=== PATIENT | female | born 1955 | race Caucasian/White ===

== ENCOUNTER 2018-11-30 20:20 | Inpatient (IN) | payer MEDICARE, OTHER ==
--- NOTE | 2018-11-30 21:07 | ED ---
General Adult HPI - General Chief complaint: Dizziness Stated complaint: dilating pupils,falling Time Seen by Provider: 11/30/18 20:53 Source: patient Mode of arrival: wheelchair Limitations: no limitations - History of Present Illness Initial comments: Patient is a 63-year-old female with a history of hypertension, diabetes, current smoker, who presents with a chief complaint of unequal pupils, and disequilibrium. The patient states that this started this morning. She states that around noon, her stated that her pupils looked unequal. Patient cannot identify an inciting incident. There are no aggravating or alleviating factors. Timing is constant. He has not had any new or worsening troubles with speech, no asymmetry noted. - Related Data Home Medications Medication Instructions Recorded Confirmed Albuterol Inhaler [Ventolin Hfa 1 - 2 puff INHALATION RT-Q6H PRN 11/30/18 11/30/18 Inhaler] Carvedilol [Coreg] 12.5 mg PO BID 11/30/18 11/30/18 DULoxetine HCL [Cymbalta] 120 mg PO DAILY 11/30/18 11/30/18 Furosemide [Lasix] 20 mg PO DAILY 11/30/18 11/30/18 Insulin Detemir [Levemir Flextouch] 18 units SQ HS 11/30/18 11/30/18 Lisinopril [Zestril] 40 mg PO DAILY 11/30/18 11/30/18 Omeprazole [PriLOSEC] 20 mg PO AC-BID 11/30/18 11/30/18 Potassium Chloride ER [K-Dur 10] 10 meq PO BID 11/30/18 11/30/18 Pregabalin [Lyrica] 300 mg PO BID 11/30/18 11/30/18 Ranitidine HCl [Zantac] 150 mg PO HS 11/30/18 11/30/18 amLODIPine [Norvasc] 5 mg PO DAILY 11/30/18 11/30/18 metFORMIN HCL [Glucophage] 1,000 mg PO BID 11/30/18 11/30/18 oxyCODONE-APAP 10-325MG [Percocet 1 tab PO Q6HR PRN 11/30/18 11/30/18 10-325 mg] tiZANidine [Zanaflex] 4 mg PO Q6H PRN 11/30/18 11/30/18 Allergies Allergy/AdvReac Type Severity Reaction Status Date / Time cefaclor [From Ceclor] Allergy Rash/Hives Verified 11/30/18 21:38 ceftriaxone [From Rocephin] Allergy Rash/Hives Verified 11/30/18 21:38 Sulfa (Sulfonamide Allergy Rash/Hives Verified 11/30/18 21:38 Antibiotics) aspirin AdvReac Unknown Verified 11/30/18 21:38 Childhood morphine AdvReac Unknown Verified 11/30/18 21:38 Review of Systems ROS Statement: Those systems with pertinent positive or pertinent negative responses have been documented in the HPI. ROS Other: All systems not noted in ROS Statement are negative. Neurological: Reports: paresthesias Past Medical History Past Medical History: Diabetes Mellitus, Hypertension Additional Past Medical History / Comment(s): chronic back/abd pain History of Any Multi-Drug Resistant Organisms: None Reported Past Surgical History: Cholecystectomy, Tonsillectomy Additional Past Surgical History / Comment(s): R kidney repair, mass removed from left arm. Past Psychological History: PTSD Smoking Status: Current every day smoker Past Alcohol Use History: None Reported Past Drug Use History: None Reported General Exam Limitations: no limitations General appearance: alert, in no apparent distress Head exam: Present: atraumatic, normocephalic Eye exam: Present: normal appearance, PERRL, EOMI. Absent: nystagmus ENT exam: Present: normal exam, mucous membranes moist Neck exam: Present: normal inspection Respiratory exam: Present: normal lung sounds bilaterally. Absent: respiratory distress, wheezes Cardiovascular Exam: Present: regular rate, normal rhythm GI/Abdominal exam: Present: soft. Absent: distended, tenderness Rectal exam: Present: deferred Extremities exam: Present: normal inspection Back exam: Present: normal inspection Neurological exam: Present: alert, oriented X3, CN II-XII intact, motor sensory deficit (Patient states she has decreased sensation on the left side of her face) Psychiatric exam: Present: normal affect, normal mood Skin exam: Present: warm, dry, intact Course Vital Signs 11/30/18 11/30/18 11/30/18 20:38 20:55 21:10 Temperature 98.9 F Pulse Rate 107 H 102 H 108 H Respiratory 20 18 18 Rate Blood Pressure 167/98 174/120 177/107 O2 Sat by Pulse 91 L 93 L 94 L Oximetry 11/30/18 11/30/18 11/30/18 21:25 21:40 21:55 Temperature Pulse Rate 113 H 108 H 100 Respiratory 16 17 16 Rate Blood Pressure 191/110 157/85 140/108 O2 Sat by Pulse 96 96 96 Oximetry 11/30/18 11/30/18 22:25 22:55 Temperature 98.3 F Pulse Rate 95 88 Respiratory 16 16 Rate Blood Pressure 129/105 158/98 O2 Sat by Pulse 96 96 Oximetry Medical Decision Making - Medical Decision Making Patient presents with a chief complaint strokelike symptoms. On initial evaluation, but essential hypertension but otherwise stable. Patient is alert and oriented, follows commands, and a stroke scale of one secondary to par esthesias of the left side of the face. Symptoms onset was this morning, outside of the 6 hour TPA window. Patient not a TPA candidate. Patient is ALLERGIC to aspirin and states that she had about a reaction when she was very little and the doctor told her parents to know regular aspirin again. Patient does not know exactly what type of reaction she had patient will be evaluated with basic labs including cardiac enzymes, CT scans of the head and neck with and without contrast. Ultimately patient will be admitted for neuro evaluation. 11:28 PM Chest x-ray is unremarkable. Incidentally, there is a calcified granuloma found. Patient is aware of this finding, states she has had it for about 30 years. Computed tomography scan of the head shows a small amount of hypodensity in the left frontal periventricular region which may represent an age- indeterminate infarct. There is mild chronic small vessel ischemia. CT angiography of the brain shows no significant stenosis, occlusion, or aneurysm. Angiography of the neck shows no evidence of aneurysm, or hemodynamically significant occlusion. Labs are otherwise unremarkable this time. 11:42 PM Case discussed with Dr. Rodas who accepts admission. patient updated on findings and care plan, she is agreeable. - Lab Data Result diagrams: 11/30/18 21:05 11/30/18 21:05 Lab Results 11/30/18 11/30/18 11/30/18 Range/Units 21:05 21:05 21:05 WBC 11.2 H (3.8-10.6) k/uL RBC 5.50 H (3.80-5.40) m/uL Hgb 11.8 (11.4-16.0) gm/dL Hct 39.5 (34.0-46.0) % MCV 71.8 L (80.0-100.0) fL MCH 21.5 L (25.0-35.0) pg MCHC 29.9 L (31.0-37.0) g/dL RDW 17.5 H (11.5-15.5) % Plt Count 371 (150-450) k/uL Neutrophils % 56 % Lymphocytes % 30 % Monocytes % 6 % Eosinophils % 5 % Basophils % 1 % Neutrophils # 6.2 (1.3-7.7) k/uL Lymphocytes # 3.4 (1.0-4.8) k/uL Monocytes # 0.6 (0-1.0) k/uL Eosinophils # 0.6 (0-0.7) k/uL Basophils # 0.1 (0-0.2) k/uL Hypochromasia Marked Poikilocytosis Slight Anisocytosis Slight Microcytosis Moderate Sodium 139 (137-145) mmol/L Potassium 4.1 (3.5-5.1) mmol/L Chloride 104 (98-107) mmol/L Carbon Dioxide 27 (22-30) mmol/L Anion Gap 8 mmol/L BUN 12 (7-17) mg/dL Creatinine 0.66 (0.52-1.04) mg/dL Est GFR (CKD-EPI)AfAm >90 (>60 ml/min/1.73 sqM) Est GFR (CKD-EPI)NonAf >90 (>60 ml/min/1.73 sqM) Glucose 159 H (74-99) mg/dL POC Glucose (mg/dL) (75-99) mg/dL POC Glu [employer] Manager ID Calcium 10.1 (8.4-10.2) mg/dL Troponin I <0.012 (0.000-0.034) ng/mL 11/30/18 Range/Units 21:18 WBC (3.8-10.6) k/uL RBC (3.80-5.40) m/uL Hgb (11.4-16.0) gm/dL Hct (34.0-46.0) % MCV (80.0-100.0) fL MCH (25.0-35.0) pg MCHC (31.0-37.0) g/dL RDW (11.5-15.5) % Plt Count (150-450) k/uL Neutrophils % % Lymphocytes % % Monocytes % % Eosinophils % % Basophils % % Neutrophils # (1.3-7.7) k/uL Lymphocytes # (1.0-4.8) k/uL Monocytes # (0-1.0) k/uL Eosinophils # (0-0.7) k/uL Basophils # (0-0.2) k/uL Hypochromasia Poikilocytosis Anisocytosis Microcytosis Sodium (137-145) mmol/L Potassium (3.5-5.1) mmol/L Chloride (98-107) mmol/L Carbon Dioxide (22-30) mmol/L Anion Gap mmol/L BUN (7-17) mg/dL Creatinine (0.52-1.04) mg/dL Est GFR (CKD-EPI)AfAm (>60 ml/min/1.73 sqM) Est GFR (CKD-EPI)NonAf (>60 ml/min/1.73 sqM) Glucose (74-99) mg/dL POC Glucose (mg/dL) 170 H (75-99) mg/dL POC Glu [employer] Manager ID Summer Christy Calcium (8.4-10.2) mg/dL Troponin I (0.000-0.034) ng/mL Disposition Clinical Impression: Stroke-like symptoms, Paresthesia, Abnormal CT scan of head Disposition: ADMITTED IP TO THIS [facility] Condition: Good Referrals: None,Stated [Primary Care Provider] - 1-2 days Decision to Admit Reason: Admit from EC - Out of Hospital Transfer - Req. Specs Out of Hospital Transfer - Requested Specifics: Telemetry Unit
[2018-11-30 21:19] LABS: Glucose,Whole Blood 170 mg/dL (75-99)
[2018-11-30 21:22] LABS: Anisocytosis Slight; Basophils # (A) 0.1 k/uL (0-0.2); Basophils % (A) 1 %; Eosinophils # (A) 0.6 k/uL (0-0.7); Eosinophils % (A) 5 %; HCT 39.5 % (34.0-46.0); HGB 11.8 gm/dL (11.4-16.0); Hypochromasia Marked; Lymphocytes # (A) 3.4 k/uL (1.0-4.8); Lymphocytes % (A) 30 %; MCH 21.5 pg (25.0-35.0); MCHC 29.9 g/dL (31.0-37.0); MCV 71.8 fL (80.0-100.0); Mean Platelet Volume 6.4; Microcytosis Moderate; Monocytes # (A) 0.6 k/uL (0-1.0); Monocytes % (A) 6 %; Neutrophils # (A) 6.2 k/uL (1.3-7.7); Neutrophils % (A) 56 %; Platelet Count 371 k/uL (150-450); Poikilocytosis Slight; RDW 17.5 % (11.5-15.5); WBC 11.2 k/uL (3.8-10.6)
[2018-11-30 21:30] LABS: Anion Gap 8 mmol/L; Blood Urea Nitrogen 12 mg/dL (7-17); Calcium 10.1 mg/dL (8.4-10.2); Carbon Dioxide 27 mmol/L (22-30); Chloride 104 mmol/L (98-107); Glucose 159 mg/dL (74-99); Potassium 4.1 mmol/L (3.5-5.1); Sodium 139 mmol/L (137-145)
--- NOTE | 2018-11-30 22:50 | XR ---
EXAM: XR Chest, 2 Views CLINICAL HISTORY: ITS.REASON XR Reason: Pain TECHNIQUE: Frontal and lateral views of the chest. COMPARISON: None FINDINGS: Hardware: None. Lungs/pleura: Calcified granuloma in the left midlung. No focal consolidation. No pleural effusion or pneumothorax. Heart/mediastinum: Normal. No cardiomegaly. Soft tissues: Unremarkable. Bones: No acute fracture. Mild curvature of the spine. Upper abdomen: Cholecystectomy clips in the right upper quadrant. IMPRESSION: Calcified granuloma in the left midlung. No acute disease.
--- NOTE | 2018-11-30 23:08 | CT ---
EXAM: CT Head Without Intravenous Contrast CLINICAL HISTORY: ITS.REASON CT Reason: Pain TECHNIQUE: Axial computed tomography images of the head/brain without intravenous contrast. CTDI is 42.7 mGy and DLP is 979.6 mGy-cm. This CT exam was performed using one or more of the following dose reduction techniques: automated exposure control, adjustment of the mA and/or kV according to patient size, and/or use of iterative reconstruction technique. COMPARISON: None FINDINGS: Brain: Small amount of hypodensity in the left frontal periventricular region may represent an age-indeterminate infarct. No extra-axial fluid collection. No mass effect or midline shift. Scattered areas of hypoattenuation in the supratentorial white matter likely represent chronic small vessel ischemic changes. Ventricles and sulci: Prominence of the ventricles and sulci is likely secondary to cerebral volume loss. Skull: Normal. No bony lesion or fracture. Subcutaneous tissues: Normal. Sinuses: Mild mucosal thickening in the maxillary sinuses and right sphenoid sinus. Orbits: Right lens implant. Other: Atherosclerotic calcifications in the intracranial vasculature. IMPRESSION: 1. Small amount of hypodensity in the left frontal periventricular region may represent age-indeterminate infarct. Further evaluation could be performed with MRI if clinically indicated. No evidence of hemorrhage. 2. Mild chronic small vessel ischemic changes and cerebral volume loss.
[2018-11-30] MEDS ORDERED: oxyCODONE-APAP 10-325MG 1 EACH TAB PO STA (23:09)
--- NOTE | 2018-11-30 23:14 | CT ---
EXAM: CT Angiography Head With Intravenous Contrast CLINICAL HISTORY: ITS.REASON CT Reason: Pain TECHNIQUE: Axial computed tomographic angiography images of the head with intravenous contrast using CT angiography protocol. CTDI is 8.4 mGy and DLP is 375.4 mGy-cm. This CT exam was performed using one or more of the following dose reduction techniques: automated exposure control, adjustment of the mA and/or kV according to patient size, and/or use of iterative reconstruction technique. 3D and MIP reconstructed images were created and reviewed. COMPARISON: None FINDINGS: Right internal carotid artery: Mild atherosclerotic calcifications in the cavernous portion of the right distal ICA without significant stenosis. No aneurysm. Right anterior cerebral artery: Unremarkable. No occlusion or significant stenosis. No aneurysm. Right middle cerebral artery: Unremarkable. No occlusion or significant stenosis. No aneurysm. 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 No occlusion or significant stenosis. No aneurysm. Right vertebral artery: Unremarkable as visualized. Left internal carotid artery: Mild atherosclerotic calcifications in the cavernous left distal ICA without significant stenosis. No aneurysm. Left anterior cerebral artery: Unremarkable. No occlusion or significant stenosis. No aneurysm. Left middle cerebral artery: Unremarkable. No occlusion or significant stenosis. No aneurysm. Left posterior cerebral artery: Unremarkable. No occlusion or significant stenosis. No aneurysm. Left vertebral artery: Unremarkable as visualized. Basilar artery: Unremarkable. No occlusion or significant stenosis. No aneurysm. IMPRESSION: No significant stenosis, occlusion, or aneurysm. EXAM: CT Angiography Neck With Intravenous Contrast CLINICAL HISTORY: ITS.REASON CT Reason: Pain TECHNIQUE: Axial computed tomographic angiography images of the neck with intravenous contrast using CT angiography protocol. CTDI is 8.4 mGy and DLP is 375.4 mGy-cm. This CT exam was performed using one or more of the following dose reduction techniques: automated exposure control, adjustment of the mA and/or kV according to patient size, and/or use of iterative reconstruction technique. 3D and MIP reconstructed images were created and reviewed. COMPARISON: None FINDINGS: VASCULATURE: Right common carotid artery: Unremarkable. No significant stenosis. No dissection or occlusion. Right internal carotid artery: Mild atherosclerotic calcifications in the right carotid bulb and proximal right ICA without significant stenosis. No dissection or occlusion. Right external carotid artery: Unremarkable. No occlusion. Right vertebral artery: Unremarkable. No significant stenosis. No dissection or occlusion. Left common carotid artery: Unremarkable. No significant stenosis. No dissection or occlusion. Left internal carotid artery: Atherosclerotic changes in the left carotid bulb and proximal left ICA without significant stenosis. No dissection or occlusion. Left external carotid artery: Unremarkable. No occlusion. Left vertebral artery: Unremarkable. No significant stenosis. No dissection or occlusion. Other vasculature: Mild atherosclerotic calcifications of the aortic arch and at the origins of the great vessels without significant stenosis. NECK: Bones/joints: No acute fracture. No dislocation. Soft tissues: Unremarkable as visualized. No mass. Lymph nodes: Calcified mediastinal and left hilar lymph nodes. Nonspecific mildly prominent mediastinal lymph nodes. Thyroid: Hypodense nodule in the left thyroid lobe with punctate calcification could be further evaluated with nonemergent dedicated ultrasound if clinically indicated. CAROTID STENOSIS REFERENCE USING NASCET CRITERIA: % ICA stenosis = (1 - narrowest ICA diameter/diameter of distal cervical ICA) x 100. Mild - <50% stenosis. Moderate - 50-69% stenosis. Severe - 70-94% stenosis. Near occlusion - 95-99% stenosis. Occluded - 100% stenosis. IMPRESSION: No significant stenosis, occlusion, or dissection.
[2018-11-30] MEDS ORDERED: NALOXONE 0.4 MG/ML 1 ML VIAL IV PRN (23:43)
[2018-11-30] MEDS ORDERED: tiZANidine 4 MG TAB PO PRN (23:45)
[2018-11-30] MEDS ORDERED: ALBUTEROL NEBULIZED 2.5 MG/3 ML INHALATION PRN (23:45)
[2018-12-01] MEDS ORDERED: LABETALOL SYRINGE 5 MG/ML IVP STA (00:23)
[2018-12-01] MEDS ORDERED: ATORVASTATIN 80 MG TAB PO STA (00:58)
--- NOTE | 2018-12-01 01:00 | P.HPIM ---
History of Present Illness H&P Date: 12/01/18 Patient is a 62-year-old female with a past medical history of hypertension, diabetes mellitus, active smoker (one pack per day for 49 years), presented to the ED for unequal pupils and feeling off balance. The patient reports that her symptoms started suddenly yesterday in the morning when she began to feel as though she was wearing off to the left side. She however denied blurred vision, numbness, or weakness. She further denied vertigo or lightheadedness and notes that her symptoms were limited to her wearing off to the side as she tried to walk. She further denied facial asymmetry, difficulty with speech, headache, dizziness, or eye pain. She noted that her saw her unequal pupils earlier today and advised her to come to the ED. She reports that she has never had such symptoms in the past. She otherwise denied any additional complaints including chest pain, shortness of breath, fever, chills, abdominal pain, nausea, vomiting, or diarrhea. She underwent an extensive evaluation in the ED with a brain CT revealing a small left frontal lobe hypodensity suspicious for a n age indeterminate ischemic infarct. A head and neck CT angiogram revealed no abnormalities. WBC count was 11.2, hemoglobin 11.8, and troponins less than 0.012. The patient was subsequently admitted to the medicine service for neurology evaluation of further management. Review of Systems Pertinent positives and negatives as discussed in HPI, a complete review of syst ems was performed and all other systems are negative. Past Medical History Past Medical History: Diabetes Mellitus, Hypertension Additional Past Medical History / Comment(s): chronic back/abd pain History of Any Multi-Drug Resistant Organisms: None Reported Past Surgical History: Cholecystectomy, Tonsillectomy Additional Past Surgical History / Comment(s): R kidney repair, mass removed from left arm. Past Psychological History: PTSD Smoking Status: Current every day smoker Past Alcohol Use History: None Reported Past Drug Use History: None Reported - Past Family History Father Additional Family Medical History / Comment(s): from CVA Medications and Allergies Home Medications Medication Instructions Recorded Confirmed Type Albuterol Inhaler [Ventolin Hfa 1 - 2 puff INHALATION RT-Q6H PRN 11/30/18 11/30/18 History Inhaler] Carvedilol [Coreg] 12.5 mg PO BID 11/30/18 11/30/18 History DULoxetine HCL [Cymbalta] 120 mg PO DAILY 11/30/18 11/30/18 History Furosemide [Lasix] 20 mg PO DAILY 11/30/18 11/30/18 History Insulin Detemir [Levemir Flextouch] 18 units SQ HS 11/30/18 11/30/18 History Lisinopril [Zestril] 40 mg PO DAILY 11/30/18 11/30/18 History Omeprazole [PriLOSEC] 20 mg PO AC-BID 11/30/18 11/30/18 History Potassium Chloride ER [K-Dur 10] 10 meq PO BID 11/30/18 11/30/18 History Pregabalin [Lyrica] 300 mg PO BID 11/30/18 11/30/18 History Ranitidine HCl [Zantac] 150 mg PO HS 11/30/18 11/30/18 History amLODIPine [Norvasc] 5 mg PO DAILY 11/30/18 11/30/18 History metFORMIN HCL [Glucophage] 1,000 mg PO BID 11/30/18 11/30/18 History oxyCODONE-APAP 10-325MG [Percocet 1 tab PO Q6HR PRN 11/30/18 11/30/18 History 10-325 mg] tiZANidine [Zanaflex] 4 mg PO Q6H PRN 11/30/18 11/30/18 History Allergies Allergy/AdvReac Type Severity Reaction Status Date / Time cefaclor [From Ceclor] Allergy Rash/Hives Verified 11/30/18 21:38 ceftriaxone [From Rocephin] Allergy Rash/Hives Verified 11/30/18 21:38 Sulfa (Sulfonamide Allergy Rash/Hives Verified 11/30/18 21:38 Antibiotics) aspirin AdvReac Unknown Verified 11/30/18 21:38 Childhood morphine AdvReac Unknown Verified 11/30/18 21:38 Physical Exam Vitals: Vital Signs Temp Pulse Resp BP Pulse Ox 12/01/18 00:41 91 16 144/103 91 L 12/01/18 00:32 98.3 F 98 17 151/107 91 L 11/30/18 22:55 88 16 158/98 96 11/30/18 22:25 98.3 F 95 16 129/105 96 11/30/18 21:55 100 16 140/108 96 05/17/19 21:40 108 H 17 157/85 96 11/30/18 21:25 113 H 16 191/110 96 11/30/18 21:10 108 H 18 177/107 94 L 11/30/18 20:55 102 H 18 174/120 93 L 11/30/18 20:38 98.9 F 107 H 20 167/98 91 L Intake and Output 11/30/18 11/30/18 12/01/18 14:59 22:59 06:59 Other: Weight 63.503 kg General: non toxic, no distress, appears at stated age, normal weight Derm: no unusual rashes/lesions no unusual ecchymoses, warm, dry Head: atraumatic, normocephalic, symmetric Eyes: EOMI, no lid lag, anicteric sclera, pupils equal round reactive to light ENT: Nose and ears atraumatic, no thrush, no pharyngeal erythema Neck: No thyromegaly, no cervical lymphadenopathy, trachea midline, supple Mouth: no lip lesion, mucus membranes moist Cardiovascular: S1S2 reg, no murmur, positive posterior tibial pulse bilateral, no edema, capillary refill less than 2 seconds Lungs: Mild wheezing bilaterally, no rhonchi, no rales , no accessory muscle use Abdominal: soft, nontender to palpation, no guarding, no appreciable organomegaly, normal bowel sounds Ext: no gross muscle atrophy, muscle strength 5 out of 5 in all 4 extremities grossly, no contractures, Neuro: CN II-XI grossly intact, light touch intact all 4 extremities, finger to nose within normal limits, no facial asymmetry, gait abnormal with patient leaning towards left side Psych: Alert, oriented, appropriate affect Results CBC & Chem 7: 12/01/18 03:47 12/01/18 03:47 Labs: Abnormal Lab Results - Last 24 Hours (Table) 11/30/18 11/30/18 11/30/18 Range/Units 21:05 21:05 21:18 WBC 11.2 H (3.8-10.6) k/uL RBC 5.50 H (3.80-5.40) m/uL MCV 71.8 L (80.0-100.0) fL MCH 21.5 L (25.0-35.0) pg MCHC 29.9 L (31.0-37.0) g/dL RDW 17.5 H (11.5-15.5) % Glucose 159 H (74-99) mg/dL POC Glucose (mg/dL) 170 H (75-99) mg/dL Assessment and Plan Plan: Acute ischemic CVA -Neurology evaluation -Neurochecks -MRI brain in a.m. -Plavix, statin -Fall, seizure, aspiration precautions Hypertension -Resume home medications Hyperlipidemia -Lipitor Diabetes mellitus -Insulin sliding scale with blood glucose monitoring Tobacco abuse -Advised on importance of cessation -Nicotine patch as needed DVT prophylaxis -IPCDs The patient is admitted with an anticipated greater than 2 midnight stay for evaluation of acute CVA. CODE STATUS: Full Code Discussed with: Patient Anticipated discharge date: 12/03/[address]: Home A total of 40 minutes was spent on the care of this complex patient more than 50% of the time was spent in counseling and care coordination.
[2018-12-01] MEDS ORDERED: CLOPIDOGREL 75 MG TAB PO STA (01:14)
[2018-12-01 04:14] LABS: Anisocytosis Slight; Basophils # (A) 0.1 k/uL (0-0.2); Basophils % (A) 1 %; Eosinophils # (A) 0.5 k/uL (0-0.7); Eosinophils % (A) 5 %; HCT 37.3 % (34.0-46.0); HGB 10.5 gm/dL (11.4-16.0); Hypochromasia Marked; Lymphocytes % (A) 40 %; MCH 20.4 pg (25.0-35.0); MCHC 28.3 g/dL (31.0-37.0); MCV 72.2 fL (80.0-100.0); Mean Platelet Volume 6.1; Microcytosis Moderate; Monocytes # (A) 0.6 k/uL (0-1.0); Monocytes % (A) 6 %; Neutrophils # (A) 4.6 k/uL (1.3-7.7); Neutrophils % (A) 45 %; Platelet Count 343 k/uL (150-450); Poikilocytosis Slight; RBC 5.16 m/uL (3.80-5.40); WBC 10.1 k/uL (3.8-10.6)
[2018-12-01 04:38] LABS: Anion Gap 8 mmol/L; Blood Urea Nitrogen 10 mg/dL (7-17); Calcium 9.5 mg/dL (8.4-10.2); Carbon Dioxide 24 mmol/L (22-30); Chloride 106 mmol/L (98-107); Glucose 98 mg/dL (74-99); Potassium 4.5 mmol/L (3.5-5.1); Sodium 138 mmol/L (137-145)
[2018-12-01 06:17] LABS: Glucose,Whole Blood 111 mg/dL (75-99)
[2018-12-01] MEDS: INSULIN ASPART (NovoLOG) 100 UNIT/ML VIAL SQ SCH ×4 (06:21→21:33)
[2018-12-01] MEDS: CARVEDILOL 12.5 MG TAB PO SCH ×2 (06:23→21:32)
[2018-12-01] MEDS: POTASSIUM CHLORIDE ER 10 MEQ TAB.ER.PRT PO SCH ×2 (06:23→21:33)
[2018-12-01] MEDS: CLOPIDOGREL 75 MG TAB PO SCH (08:59)
[2018-12-01] MEDS: PANTOPRAZOLE 40 MG TABLET PO SCH (08:59)
[2018-12-01] MEDS: amLODIPine 5 MG TAB PO SCH (08:59)
[2018-12-01] MEDS: DULoxetine HCL 60 MG CAPSULE.DR PO SCH (08:59)
[2018-12-01] MEDS: ATORVASTATIN 80 MG TAB PO SCH (09:00)
[2018-12-01] MEDS: LISINOPRIL 20 MG TAB PO SCH (09:00)
[2018-12-01] MEDS: PREGABALIN 100 MG CAP PO SCH ×2 (09:00→21:32)
[2018-12-01] MEDS ORDERED: NON-FORMULARY DRUG (Metformin Hcl [Glucophage] 1,000 MG) PO SCH (09:00)
[2018-12-01] MEDS: FUROSEMIDE 20 MG TAB PO SCH (09:00)
[2018-12-01] MEDS: oxyCODONE-APAP 10-325MG 1 EACH TAB PO PRN ×3 (09:10→22:36)
[2018-12-01] MEDS: NICOTINE 14MG/24HR PATCH TRANSDERM SCH (11:04)
[2018-12-01] MEDS ORDERED: IPRATROPIUM-ALBUTEROL 3 ML NEB INHALATION PRN (11:26)
[2018-12-01] MEDS ORDERED: IPRATROPIUM-ALBUTEROL 3 ML NEB INHALATION STA (11:27)
--- NOTE | 2018-12-01 11:28 | P.PN ---
Progress Note - Text Progress Note Date: 12/01/18 Please refer to the H&P for full note. 63-year-old female with PMH of hypertension, diabetes, current smoker who presents the ED for unequal pupils and feeling off balance. CT brain showed hypodensity in the left frontal region may represent age indeterminate infarct. CTA of the head and neck show no significant stenosis, occlusion or dissection. Patient was admitted for workup of acute CVA. Neurology was consulted. Patient was seen and examined. No acute events overnight. Patient reports complete resolution of her symptoms. She denies any feelings of off balance. No blurry vision. Denies any chest pain, shortness of breath or palpitations. General: [non toxic], [no distress], [appears at stated age] Derm: [warm], [dry] Head: [atraumatic], [normocephalic], [symmetric] Eyes: [EOMI], [no lid lag], [anicteric sclera] Mouth: [no lip lesion], [mucus membranes moist] Cardiovascular: [S1S2 reg], [no murmur] Lungs: [CTA bilateral with scattered wheezing], [no rhonchi, no rales] , [no accessory muscle use] Abdominal: [soft], [ nontender to palpation], [no guarding], [no appreciable organomegaly] Ext: [no gross muscle atrophy], [no edema], [no contractures] Neuro: [ CN II-XI grossly intact], [no focal neuro deficits] Psych: [Alert], [oriented], [appropriate affect] Acute CVA COPD Hypertension Hyperlipidemia Diabetes mellitus Tobacco smoker DVT prophylaxis As seen on CT head. CTA head and neck negative. Plan: Continue Plavix and Lipitor. Follow MRI brain. Follow echocardiogram. Follow lipid panel and A1c. Neurochecks. Telemetry monitoring. Bedside swallow eval.Follow neurology recommendations. Follow PT and OT recommendations. Takes Symbicort and albuterol at home. Plan: DuoNeb now. DuoNeb 4 times a day as needed for shortness of breath and wheezing. BP 128/78. Plan: Continue amlodipine, lisinopril and Coreg. Monitor vitals, adjust medications as necessary. Plan: Continue Lipitor. Follow lipid panel. [id number] glucose 111. Plan: Follow A1c. Continue Levemir 14 units at bedtime. Insulin sliding-scale. Hypoglycemic percussion. Regular Accu-Cheks. Plan: Quit. Nicotine patch while inhouse. Plan: Heparin subcutaneously. Patient admitted for workup of CVA. Neurology was consulted. Pending clinical improvement.
[2018-12-01 11:54] LABS: Glucose,Whole Blood 108 mg/dL (75-99)
--- NOTE | 2018-12-01 12:44 | MR ---
EXAMINATION TYPE: MR brain wo con DATE OF EXAM: 12/01/2018 12:37 PM. COMPARISON: NONE. HISTORY: Stroke symptoms. Technique: Multiplanar, multiecho imaging of the brain was obtained without intravenous contrast. FINDINGS: The study is degraded by patient motion artifact. Midline structures are unremarkable. There is a normal craniocervical junction. Echoplanar diffusion imaging is normal. There are normal vascular flow voids. The orbits are unremarkable. There is no evidence of a CP angle mass lesion. There is both punctate and diffuse periventricular white matter disease. This may be on the masses ar e chronic ischemic change and small vessel disease. Other causes of demyelination are not excluded. T here is no mass effect, midline shift or intracranial blood identified. IMPRESSION: 1. NO ACUTE INTRACRANIAL ABNORMALITY. 2. BOTH PUNCTATE AND DIFFUSE PERIVENTRICULAR WHITE MATTER CHANGES ON THE FLAIR DATASET, LIKELY ON THE BASIS OF SMALL VESSEL DISEASE AND CHRONIC ISCHEMIC CHANGE. OTHER CAUSES OF DEMYELINATION ARE NOT EXC LUDED.
--- NOTE | 2018-12-01 12:58 | P.CNNES ---
History of Present Illness Consult date: 12/01/18 Requesting physician: Greta Rodas Reason for Consult: CVA Chief complaint: Dizziness, unequal pupil, imbalance. History of Present Illness: Patient is a 63-year-old female, who has history of hypertension, diabetes, tobacco use, currently not on any antiplatelet medication, states she woke up ye sterday at 7:30 AM, and felt she was off balance. She was tending to veer on the left side, and would tend to fall to the left. She stayed home. She does have a cane which she uses off and on and used it yesterday. At around noon, her noticed that her left pupil was much dilated as compared to the right. Therefore they got concerned, and was brought to the hospital. Her blood pressure on arrival was 167/98, pulse rate 107, respiration 20 and temperature 98.9. Patient also complained of some dizziness, which she described as lightheadedness, no vertigo. There was no nausea vomiting facial droop slurred speech. Her also mentioned that in the past 2-3 days, she has been having some difficulty with speech, with word finding difficulty, as she would not able to complete her sentences and her has to help her with completing sentences. Patient underwent computed tomography scan of the head, which revealed no acute process. Some old lacuna in the left basal g anglia. Patient was not a candidate for thrombolysis, as she came outside the window for TPA. Patient underwent CTA of head and neck which was negative. Chest x-ray showed calcified granuloma in the left mid lung. Patient does not take any antiplatelet medication at home. She was started on Plavix 75 mg. 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 She was told never to take aspirin. At present patient feels her symptoms have completely resolved. Denies any chest pain, shortness of breath headaches. Patient has history of hypertension, diabetes since 2003, which she claims is controlled. She has smoked 1 pack per day from age 15 until now. Multiple attempts in the past of trial to quit smoking Review of Systems As mentioned above in detail. Denies any chest pain shortness of breath, diplopia, nausea vomiting, numbness of the extremities focal weakness. Cardiovascular: Denies rapid heart beat, Denies shortness of breath Respiratory: Denies cough Gastrointestinal: Denies loss of appetite, Denies nausea, Denies vomiting Past Medical History Past Medical History: Diabetes Mellitus, Hypertension Additional Past Medical History / Comment(s): chronic back/abd pain History of Any Multi-Drug Resistant Organisms: None Reported Past Surgical History: Cholecystectomy, Tonsillectomy Additional Past Surgical History / Comment(s): R kidney repair, mass removed from left arm. Past Anesthesia/Blood Transfusion Reactions: Unable to Obtain Past Psychological History: PTSD Smoking Status: Current every day smoker Past Alcohol Use History: None Reported Past Drug Use History: None Reported - Past Family History Father Additional Family Medical History / Comment(s): from CVA Medications and Allergies Home Medications Medication Instructions Recorded Confirmed Type Albuterol Inhaler [Ventolin Hfa 1 - 2 puff INHALATION RT-Q6H PRN 11/30/18 11/30/18 History Inhaler] Carvedilol [Coreg] 12.5 mg PO BID 11/30/18 11/30/18 History DULoxetine HCL [Cymbalta] 120 mg PO DAILY 11/30/18 11/30/18 History Furosemide [Lasix] 20 mg PO DAILY 11/30/18 11/30/18 History Insulin Detemir [Levemir Flextouch] 18 units SQ HS 11/30/18 11/30/18 History Lisinopril [Zestril] 40 mg PO DAILY 11/30/18 11/30/18 History Omeprazole [PriLOSEC] 20 mg PO AC-BID 11/30/18 11/30/18 History Potassium Chloride ER [K-Dur 10] 10 meq PO BID 11/30/18 11/30/18 History Pregabalin [Lyrica] 300 mg PO BID 11/30/18 11/30/18 History Ranitidine HCl [Zantac] 150 mg PO HS 11/30/18 11/30/18 History amLODIPine [Norvasc] 5 mg PO DAILY 11/30/18 11/30/18 History metFORMIN HCL [Glucophage] 1,000 mg PO BID 11/30/18 11/30/18 History oxyCODONE-APAP 10-325MG [Percocet 1 tab PO Q6HR PRN 11/30/18 11/30/18 History 10-325 mg] tiZANidine [Zanaflex] 4 mg PO Q6H PRN 11/30/18 11/30/18 History Allergies Allergy/AdvReac Type Severity Reaction Status Date / Time cefaclor [From Ceclor] Allergy Rash/Hives Verified 11/30/18 21:38 ceftriaxone [From Rocephin] Allergy Rash/Hives Verified 11/30/18 21:38 Sulfa (Sulfonamide Allergy Rash/Hives Verified 11/30/18 21:38 Antibiotics) aspirin AdvReac Unknown Verified 11/30/18 21:38 Childhood morphine AdvReac Unknown Verified 11/30/18 21:38 Physical Examination - Vital Signs Vital Signs: Vital Signs Temp Pulse Pulse Resp BP BP Pulse Ox 12/01/18 12:05 88 12/01/18 11:56 86 12/01/18 08:00 98.4 F 90 18 128/78 96 12/01/18 04:00 98.4 F 75 18 130/88 97 12/01/18 01:21 80 16 134/81 96 12/01/18 00:50 80 16 124/91 95 12/01/18 00:41 91 16 144/103 91 L 12/01/18 00:32 98.3 F 98 17 151/107 91 L 12/01/18 00:18 98.2 F 86 18 139/82 91 L 11/30/18 22:55 88 16 158/98 96 11/30/18 22:25 98.3 F 95 16 129/105 96 11/30/18 21:55 100 16 140/108 96 11/30/18 21:40 108 H 17 157/85 96 11/30/18 21:25 113 H 16 191/110 96 11/30/18 21:10 108 H 18 177/107 94 L 11/30/18 20:55 102 H 18 174/120 93 L 11/30/18 20:38 98.9 F 107 H 20 167/98 91 L Intake and Output 11/30/18 12/01/18 12/01/18 22:59 06:59 14:59 Intake Total 480 Balance 480 Intake: Oral 480 Other: # Voids 2 Weight 63.503 kg 65.4 kg On examination patient is a late middle aged female, very pleasant in no acute distress. Patient is alert and awake, fully oriented to time place and person. Speech and language functions are normal. No carotid bruit or murmur. Peripheral pulses present. On cranial nerve examination, pupils are round and reacting to light. No asymmetry in the size of pupils. Visual hopson are full. Extraocular muscles are intact with no nystagmus. Face is symmetric, tongue protrudes to the midline. Palatal elevation and sensation normal. On muscle strength testing, there is no pronator drift and the strength is normal in the arms and legs. Reflexes are 1+ and plantars downgoing. Sensory touch is equal to no ataxia. Tone and bulk of muscles normal. Gait normal. Results - Laboratory Findings CBC and BMP: 12/01/18 03:47 12/01/18 03:47 Abnormal Lab Findings: Abnormal Labs 11/30/18 11/30/18 11/30/18 21:05 21:05 21:18 WBC 11.2 H RBC 5.50 H Hgb MCV 71.8 L MCH 21.5 L MCHC 29.9 L RDW 17.5 H Glucose 159 H POC Glucose (mg/dL) 170 H 12/01/18 12/01/18 12/01/18 03:47 06:16 11:45 WBC RBC Hgb 10.5 L MCV 72.2 L MCH 20.4 L MCHC 28.3 L RDW 18.0 H Glucose POC Glucose (mg/dL) 111 H 108 H Assessment and Plan Assessment: * Probable TIA, manifesting with an episode of imbalance, dizziness, anisocoria and speech difficulty. Symptoms have completely resolved. Examination is nonfocal. * Hypertension * Hyperlipidemia * Tobacco user Plan: * MRI showed no acute ischemic stroke. Patient's symptoms have completely resolved. Examination is nonfocal. * Agree with continuing Plavix 75 mg daily indefinitely for stroke prevention. * Await 2-D echo with bubble study. * Agree with checking fasting a.m. lipid panel and hemoglobin A1c * Discussed about importance of tobacco cessation. * Discussed with patient and her in detail.
--- NOTE | 2018-12-01 16:43 | ECHOF ---
Referral Reason:CVA MEASUREMENTS -------- HEIGHT: 157.5 cm WEIGHT: 65.3 kg BP: 103/50 RVIDd: 2.5 cm (< 3.3) IVSd: 1.3 cm (0.6 - 1.1) LVIDd: 4.7 cm (3.9 - 5.3) LVPWd: 1.2 cm (0.6 - 1.1) IVSs: 1.5 cm LVIDs: 3.3 cm LVPWs: 1.9 cm LA Diam: 3.3 cm (2.7 - 3.8) LAESV Index (A-L): 17.62 ml/m Ao Diam: 2.7 cm (2.0 - 3.7) AV Cusp: 2.0 cm (1.5 - 2.6) MV EXCURSION: 15.618 mm (> 18.000) MV EF SLOPE: 89 mm/s (70 - 150) EPSS: 0.9 cm MV E Kian: 0.81 m/s MV DecT: 187 ms MV A Kian: 0.67 m/s MV E/A Ratio: 1.22 RAP: 5.00 mmHg RVSP: 14.84 mmHg FINDINGS -------- Sinus rhythm. This was a technically adequate study. The left ventricular size is normal. There is mild concentric left ventricular hypertrophy. Overa ll left ventricular systolic function is normal with, an EF between 55 - 60 %. The right ventricle is normal in size. Normal LA size by volume 22+/-6 ml/m2. The right atrium is normal in size. Contrast study was performed with 2 iv injections of 8 ccs of agitated normal saline, at rest, and wi th cough. Lipomatous Hypertrophy of the atrial septum is present No shunt noted The aortic valve is trileaflet, and appears structurally normal. No aortic stenosis or regurgitation. The mitral valve is normal. There is trace to mild mitral regurgitation. The tricuspid valve appears structurally normal. Mild tricuspid regurgitation present. Right vent ricular systolic pressure is normal at < 35 mmHg. Trace/mild (physiologic) pulmonic regurgitation. The aortic root size is normal. Normal inferior vena cava with normal inspiratory collapse consistent with estimated right atrial pre ssure of 5 mmHg. There is no pericardial effusion. CONCLUSIONS -------- 1. Sinus rhythm. 2. This was a technically adequate study. 3. The left ventricular size is normal. 4. There is mild concentric left ventricular hypertrophy. 5. Overall left ventricular systolic function is normal with, an EF between 55 - 60 %. 6. Normal LA size by volume 22+/-6 ml/m2. 7. Contrast study was performed with 2 iv injections of 8 ccs of agitated normal saline, at rest, and with cough. 8. Lipomatous Hypertrophy of the atrial septum is present 9. No shunt noted 10. The aortic valve is trileaflet, and appears structurally normal. No aortic stenosis or regurgitat ion. 11. The mitral valve is normal. 12. There is trace to mild mitral regurgitation. 13. The tricuspid valve appears structurally normal. 14. Mild tricuspid regurgitation present. 15. Right ventricular systolic pressure is normal at < 35 mmHg. 16. Trace/mild (physiologic) pulmonic regurgitation. 17. The aortic root size is normal. 18. Normal inferior vena cava with normal inspiratory collapse consistent with estimated right atrial pressure of 5 mmHg. 19. There is no pericardial effusion. DICE TABLE PERSON: Jasmina Burt RDCS
[2018-12-01 17:03] LABS: Glucose,Whole Blood 131 mg/dL (75-99)
[2018-12-01] MEDS ORDERED: INSULIN DETEMIR (LEVEMIR) 100 UNIT/ML SYR SQ SCH (21:00)
[2018-12-01] MEDS ORDERED: FAMOTIDINE 20 MG TAB PO SCH (21:00)
[2018-12-01 21:22] LABS: Glucose,Whole Blood 111 mg/dL (75-99)
[2018-12-01] MEDS: HEPARIN SODIUM,PORCINE 5,000 UNIT/ML 1 ML VIAL SQ SCH (21:33)
[2018-12-02 01:11] LABS: Cholesterol 103 mg/dL (<200); HDL Cholesterol 37 mg/dL (40-60); LDL Cholesterol,Calculated 43 mg/dL (0-99); Triglycerides 115 mg/dL (<150)
[2018-12-02 06:14] LABS: Glucose,Whole Blood 90 mg/dL (75-99)
[2018-12-02] MEDS: INSULIN ASPART (NovoLOG) 100 UNIT/ML VIAL SQ SCH ×2 (06:16→14:05)
[2018-12-02] MEDS: POTASSIUM CHLORIDE ER 10 MEQ TAB.ER.PRT PO SCH (06:22)
[2018-12-02] MEDS: CARVEDILOL 12.5 MG TAB PO SCH (06:22)
[2018-12-02] MEDS: DULoxetine HCL 60 MG CAPSULE.DR PO SCH (08:06)
[2018-12-02] MEDS: ATORVASTATIN 80 MG TAB PO SCH (08:06)
[2018-12-02] MEDS: PANTOPRAZOLE 40 MG TABLET PO SCH (08:06)
[2018-12-02] MEDS: FUROSEMIDE 20 MG TAB PO SCH (08:06)
[2018-12-02] MEDS: LISINOPRIL 20 MG TAB PO SCH (08:06)
[2018-12-02] MEDS: PREGABALIN 100 MG CAP PO SCH (08:06)
[2018-12-02] MEDS: oxyCODONE-APAP 10-325MG 1 EACH TAB PO PRN ×2 (08:07→14:07)
[2018-12-02] MEDS: NICOTINE 14MG/24HR PATCH TRANSDERM SCH (08:08)
[2018-12-02] MEDS: CLOPIDOGREL 75 MG TAB PO SCH (08:08)
[2018-12-02] MEDS: amLODIPine 5 MG TAB PO SCH (08:08)
[2018-12-02] MEDS: HEPARIN SODIUM,PORCINE 5,000 UNIT/ML 1 ML VIAL SQ SCH (08:08)
[2018-12-02 08:24] VITALS: BP 155/87; PULSE 90; RESP 16; TEMP 98.6
--- NOTE | 2018-12-02 11:42 | P.DS ---
Providers Date of admission: 11/30/18 23:45 Expected date of discharge: 12/02/18 Attending physician: Greta Rodas MD Consults: 12/01/18 00:59 Consult Physician Urgent Consulting Provider: Kartik Hopper Consult Reason/Comments: Acute ischemic CVA Do you want consulting provider notified?: Yes Primary care physician: Stated None Hospital Course: Patient is a 62-year-old female with a past medical history of hypertension, diabetes mellitus, active smoker (one pack per day for 49 years), presented to the ED for unequal pupils and feeling off balance. The patient reports that her symptoms started suddenly yesterday in the morning when she began to feel as though she was wearing off to the left side. Her symptoms was concerning for acute CVA. CT of the brain showed hypodensity in the left frontal periventricular region representing age indeterminate infarct. CTA of the head and neck was negative for stenosis. Echocardiogram was done which showed EF 55-60% with mild concentric LVH with no intracardiac thrombus. MRI brain shows no acute intracranial abnormality. Physical therapy and occupational therapy evaluated the patient and cleared for discharge. Neurology was consulted and recommended Plavix and outpatient follow-up. Otherwise, her home medications were resumed for COPD, hypertension, hyperlipidemia, diabetes mellitus and patient was given a nicotine patch for her smoking history. Patient was seen and examined. No acute events overnight. Patient reports resolution of her imbalance. She denies any blurry vision or difficulty speaking or swallowing. She denies any chest pain, shortness of breath or palpitations. Patient denies any numbness/weakness/tingling of the extremities. States that she was on 2 L home O2 while in [place], lost her oxygen while transitioning to [place]. General: [non toxic], [no distress], [appears at stated age] Derm: [warm], [dry] Head: [atraumatic], [normocephalic], [symmetric] Eyes: [EOMI], [no lid lag], [anicteric sclera] Mouth: [no lip lesion], [mucus membranes moist] Cardiovascular: [S1S2 reg], [no murmur] Lungs: [Decreased breath sounds bilateral with scattered wheezing], [no rhonchi, no rales] , [no accessory muscle use] Abdominal: [soft], [ nontender to palpation], [no guarding], [no appreciable organomegaly] Ext: [no gross muscle atrophy], [no edema], [no contractures] Neuro: [ CN II-XI grossly intact], [no focal neuro deficits] Psych: [Alert], [oriented], [appropriate affect] Acute CVA COPD Hypertension Hyperlipidemia Diabetes mellitus Tobacco smoker DVT prophylaxis As seen on CT head. CTA head and neck negative. MRI brain negative for acute CVA. Echocardiogram shows EF 55-60% with mild concentric LVH and no intracardiac thrombus. Lipid panel is within normal limits. Plan: Continue Plavix and Lipitor. Follow A1c. Neurochecks. Telemetry monitoring. PT and OT cleared. Neurology consulted, recommends continuation of Plavix. Takes Symbicort and albuterol at home. Plan: DuoNeb now. DuoNeb 4 times a day as needed for shortness of breath and wheezing. Prescription sent for home O2. BP 155/87. Plan: Continue amlodipine, lisinopril and Coreg. Monitor vitals, adjust medications as necessary. Plan: Continue Lipitor. Follow lipid panel. [id number] glucose 90. Plan: Follow A1c. Continue Levemir 14 units at bedtime. Insulin sliding-scale. Hypoglycemic percussion. Regular Accu-Cheks. Plan: Quit. Nicotine patch while inhouse. Plan: Heparin subcutaneously. Patient admitted for workup of CVA. Stroke workup complete. Plans for DC today if able to get home O2. This complex discharge took greater than 30 minutes. Pertinent Studies: Brain CT, CTA head and neck, chest x-ray, brain MRI, echocardiogram Patient Condition at Discharge: Good Plan - Discharge Summary Discharge Rx Participant: Yes New Discharge Prescriptions: New Atorvastatin [Lipitor] 80 mg PO DAILY #30 tab Clopidogrel [Plavix] 75 mg PO DAILY #30 tab Continue Pregabalin [Lyrica] 300 mg PO BID oxyCODONE-APAP 10-325MG [Percocet 10-325 mg] 1 tab PO Q6HR PRN PRN Reason: Pain Omeprazole [PriLOSEC] 20 mg PO AC-BID Furosemide [Lasix] 20 mg PO DAILY DULoxetine HCL [Cymbalta] 120 mg PO DAILY amLODIPine [Norvasc] 5 mg PO DAILY Carvedilol [Coreg] 12.5 mg PO BID Lisinopril [Zestril] 40 mg PO DAILY Albuterol Inhaler [Ventolin Hfa Inhaler] 1 - 2 puff INHALATION RT-Q6H PRN PRN Reason: Shortness Of Breath tiZANidine [Zanaflex] 4 mg PO Q6H PRN PRN Reason: Muscle Pain Potassium Chloride ER [K-Dur 10] 10 meq PO BID Insulin Detemir [Levemir Flextouch] 18 units SQ HS metFORMIN HCL [Glucophage] 1,000 mg PO BID Discontinued Ranitidine HCl [Zantac] 150 mg PO HS Discharge Medication List Albuterol Inhaler [Ventolin Hfa Inhaler] 1 - 2 puff INHALATION RT-Q6H PRN 11/30/18 [History] Carvedilol [Coreg] 12.5 mg PO BID 11/30/18 [History] DULoxetine HCL [Cymbalta] 120 mg PO DAILY 11/30/18 [History] Furosemide [Lasix] 20 mg PO DAILY 11/30/18 [History] Insulin Detemir [Levemir Flextouch] 18 units SQ HS 11/30/18 [History] Lisinopril [Zestril] 40 mg PO DAILY 11/30/18 [History] Omeprazole [PriLOSEC] 20 mg PO AC-BID 11/30/18 [History] Potassium Chloride ER [K-Dur 10] 10 meq PO BID 11/30/18 [History] Pregabalin [Lyrica] 300 mg PO BID 11/30/18 [History] amLODIPine [Norvasc] 5 mg PO DAILY 11/30/18 [History] metFORMIN HCL [Glucophage] 1,000 mg PO BID 11/30/18 [History] oxyCODONE-APAP 10-325MG [Percocet 10-325 mg] 1 tab PO Q6HR PRN 11/30/18 [History] tiZANidine [Zanaflex] 4 mg PO Q6H PRN 11/30/18 [History] Atorvastatin [Lipitor] 80 mg PO DAILY #30 tab 12/02/18 [Rx] Clopidogrel [Plavix] 75 mg PO DAILY #30 tab 12/02/18 [Rx] Follow up Appointment(s)/Referral(s): [facility] [NON-STAFF] - As Needed None,Stated [Primary Care Provider] - 1-2 days Bladimir Allen MD [STAFF PHYSICIAN] - 1 Week Activity/Diet/Wound Care/Special Instructions: Call [facility] to pharmacy picking tech home oxygen equipment now that you are set up with a new supplies. [facility] can be contacted at . Follow-up PCP within 1-2 days of discharge. Follow-up with neurology within 1 week of discharge. Take all medications as advised. Discharge Disposition: HOME SELF-CARE
[2018-12-02 11:58] LABS: Glucose,Whole Blood 99 mg/dL (75-99)
[2018-12-03 14:14] LABS: Hemoglobin A1C 6.7 % (4.0-6.0)
== END 2018-12-02 15:52 | disposition home or self-care (01) | DRG 66 ==
LOC: EC 20:20 → 3SCARD 23:45
PROVIDERS: ADMIT Internal Medicine; ATTEND Internal Medicine
DX: I63.9 Cerebral infarction, unspecified (principal); J84.10 Pulmonary fibrosis, unspecified; H57.02 Anisocoria; R26.0 Ataxic gait; R40.2362 Coma scale, best motor response, obeys commands, at arrival to emergency department; R40.2142 Coma scale, eyes open, spontaneous, at arrival to emergency department; R40.2252 Coma scale, best verbal response, oriented, at arrival to emergency department; R29.701 NIHSS score 1; I10 Essential (primary) hypertension; E11.9 Type 2 diabetes mellitus without complications; J44.9 Chronic obstructive pulmonary disease, unspecified; E78.5 Hyperlipidemia, unspecified; G89.29 Other chronic pain; M54.9 Dorsalgia, unspecified; R10.9 Unspecified abdominal pain; F43.10 Post-traumatic stress disorder, unspecified; F17.210 Nicotine dependence, cigarettes, uncomplicated; Z71.6 Tobacco abuse counseling; Z99.81 Dependence on supplemental oxygen; Z79.4 Long term (current) use of insulin; Z79.899 Other long term (current) drug therapy; Z90.49 Acquired absence of other specified parts of digestive tract; Z98.890 Other specified postprocedural states; Z88.1 Allergy status to other antibiotic agents; Z88.5 Allergy status to narcotic agent; Z88.2 Allergy status to sulfonamides; Z88.6 Allergy status to analgesic agent; Z82.3 Family history of stroke
CPT/HCPCS: 36415; 70450; 70496; 70498; 70551; 71046; 80048; 80061; 83036; 84484; 85025; 93005; 93306; 94640; 96374; 99285

== ENCOUNTER → 2018-12-24 | Outpatient (CLI) | payer MEDICARE, OTHER ==
--- NOTE | 2018-12-24 11:48 | MR ---
EXAMINATION TYPE: MR angio head wo con DATE OF EXAM: 12/24/2018 COMPARISON: NONE HISTORY: Transient cerebral ischemic attack TECHNIQUE: Time of flight images focusing on the [place] were performed without contrast. FINDINGS: The right vertebral artery is slightly dominant. Basilar artery is patent. There is congenital normal variation origin of the right posterior cerebral artery from the internal carotid artery. Post erior circulation is otherwise unremarkable. A posterior communicating artery on the left is not seen . Therefore the [place] remains incomplete. No evidence of arterial venous malformation or f ocal stenosis. No aneurysm or dissection is seen of the major intracranial vasculature of the head. N o hemodynamically significant stenosis. IMPRESSION: 1. 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 2. No intracranial aneurysm, hemodynamically significant stenosis, occlusion, or dissection of the ma pratima intracranial vasculature.
== END ==
LOC: RADMRIMAIN 10:35
PROVIDERS: ATTEND Psychiatry & Neurology Neurology
DX: G45.9 Transient cerebral ischemic attack, unspecified (principal)
CPT/HCPCS: 70544

== ENCOUNTER → 2019-01-31 | Outpatient (CLI) | payer MEDICARE, OTHER ==
--- NOTE | 2019-02-05 13:20 | MM ---
Reason for exam: screening (asymptomatic). Last mammogram was performed 1 year and 2 months ago. History: Patient is postmenopausal and has history of other cancer at age 22. Family history of breast cancer in mother at age 60. Physical Findings: A clinical breast exam by your physician is recommended on an annual basis and results should be correlated with mammographic findings. MG Screening Mammo w CAD Bilateral CC and MLO view(s) were taken. Prior study comparison: December 05, 2017, mammogram, performed at [place]. April 05, 2016, mammogram, performed at [facility]. The breast tissue is heterogeneously dense. This may lower the sensitivity of mammography. There is a stable left upper outer quadrant mass at middle depth. Benign appearing calcifications in the left breast. No suspicious abnormality. No significant changes when compared with prior studies. ASSESSMENT: Benign, BI-RAD 2 RECOMMENDATION: Routine screening mammogram of both breasts in 1 year.
== END | disposition home or self-care (01) ==
LOC: RADMAMWWP 12:34
PROVIDERS: ATTEND Family Medicine
DX: Z12.31 Encounter for screening mammogram for malignant neoplasm of breast (principal)
CPT/HCPCS: 77067

== ENCOUNTER → 2019-02-01 | Outpatient (CLI) | payer MEDICARE, OTHER ==
[2019-02-01 18:08] LABS: Rheumatoid Factor <4 IU/mL (0-13)
[2019-02-01 19:09] LABS: HIV 1 AB Non-Reactive (Non-Reactive); HIV AB P24 Non-Reactive (Non-Reactive); HIV P24 AG Non-Reactive (Non-Reactive)
[2019-02-01 19:36] LABS: Hepatitis A Antibody IgM Non-Reactive (Non-Reactive); Hepatitis B Core IgM Non-Reactive (Non-Reactive)
[2019-02-02 12:29] LABS: Angiotensin-1 Converting Enz. 3 U/L (8-52)
[2019-02-02 13:16] LABS: HLA B27 NEGATIVE
[2019-02-04 09:13] LABS: Toxoplasma Antibody (IgG) <3.0 IU/mL (<7.2)
[2019-02-04 14:40] LABS: C-ANCA <1:20 Titer (<1:20); P-ANCA <1:20 Titer (<1:20)
[2019-02-05 12:20] LABS: Lyme IgG/IgM 0.06 Index
== END | disposition home or self-care (01) ==
LOC: LABWHC1 12:07
PROVIDERS: ATTEND Ophthalmology
DX: H47.012 Ischemic optic neuropathy, left eye (principal)
CPT/HCPCS: 36415; 80074; 82164; 85549; 86038; 86140; 86255; 86431; 86618; 86777; 86780; 86812; 87390

== ENCOUNTER 2019-03-16 09:49 | Emergency (ER) | payer MEDICARE, OTHER ==
[2019-03-16 09:58] VITALS: RESP 18; TEMP 98
--- NOTE | 2019-03-16 10:16 | ED ---
General Adult HPI - General Chief complaint: Neuro Symptoms/Deficit Stated complaint: Vision loss Time Seen by Provider: 03/16/19 10:04 Source: patient, RN notes reviewed Mode of arrival: ambulatory Limitations: no limitations - History of Present Illness Initial comments: Patient is a pleasant 64-year-old female presenting to the emergency department with sudden painless vision loss. Onset of symptoms was 8:30 AM. Patient suddenly noticed she could not see out of her left eye. Patient woke up earlier than this and was doing fine. Patient still denies any pain. No headache. No trauma. During examination patient states she can see an outline of me as well as shadows in her left eye, right eye vision is normal. Patient did start having some eye problems around 3 months ago. Patient was originally diagnosed with TIA, then a stroke in her eye, and then optic neuritis. This was all a progressive diagnosis. Patient states at that time she was seen because her pupils were irregular. Patient did have some minimal vision loss at that time. No other areas of weakness or confusion. No chest pain or dyspnea. No speech problems. - Related Data Home Medications Medication Instructions Recorded Confirmed Carvedilol [Coreg] 12.5 mg PO BID 11/30/18 03/16/19 DULoxetine HCL [Cymbalta] 120 mg PO DAILY 11/30/18 03/16/19 Furosemide [Lasix] 20 mg PO DAILY 11/30/18 03/16/19 Insulin Detemir [Levemir Flextouch] 18 units SQ HS 11/30/18 03/16/19 Lisinopril [Zestril] 40 mg PO DAILY 11/30/18 03/16/19 Pregabalin [Lyrica] 300 mg PO BID 11/30/18 03/16/19 amLODIPine [Norvasc] 5 mg PO DAILY 11/30/18 03/16/19 metFORMIN HCL [Glucophage] 1,000 mg PO BID 11/30/18 03/16/19 oxyCODONE-APAP 10-325MG [Percocet 1 tab PO QID 11/30/18 03/16/19 10-325 mg] tiZANidine [Zanaflex] 4 mg PO Q6H PRN 11/30/18 03/16/19 Albuterol Sulfate [Proair Hfa] 1 - 2 puff INHALATION Q6HR PRN 03/16/19 03/16/19 INSULIN ASPART (NovoLOG) [NovoLOG See Protocol SQ ACHS 03/16/19 03/16/19 (formulary)] Ranitidine HCl [Zantac] 150 mg PO HS 03/16/19 03/16/19 Previous Rx's Medication Instructions Recorded Atorvastatin [Lipitor] 80 mg PO DAILY #30 tab 12/02/18 Clopidogrel [Plavix] 75 mg PO DAILY #30 tab 12/02/18 Brinzolamide/Brimonidine Tart 1 drop LEFT EYE BID #8 ml 03/16/19 [Simbrinza 1%-0.2% Eye Drops] Allergies Allergy/AdvReac Type Severity Reaction Status Date / Time cefaclor [From Ceclor] Allergy Rash/Hives Verified 03/16/19 11:06 ceftriaxone [From Rocephin] Allergy Rash/Hives Verified 03/16/19 11:06 Sulfa (Sulfonamide Allergy Rash/Hives Verified 03/16/19 11:06 Antibiotics) aspirin AdvReac Unknown Verified 03/16/19 11:06 Childhood morphine AdvReac Unknown Verified 03/16/19 11:06 Review of Systems ROS Statement: Those systems with pertinent positive or pertinent negative responses have been documented in the HPI. ROS Other: All systems not noted in ROS Statement are negative. Constitutional: Denies: fever Eyes: Reports: vision change. Denies: eye pain ENT: Denies: ear pain Respiratory: Denies: cough Cardiovascular: Denies: chest pain Endocrine: Denies: fatigue Gastrointestinal: Denies: abdominal pain Genitourinary: Denies: dysuria Musculoskeletal: Denies: back pain Skin: Denies: rash, lesions Neurological: Denies: headache, weakness Past Medical History Past Medical History: Diabetes Mellitus, Hypertension Additional Past Medical History / Comment(s): chronic back/abd pain, Optic neuritis History of Any Multi-Drug Resistant Organisms: None Reported Past Surgical History: Cholecystectomy, Tonsillectomy Additional Past Surgical History / Comment(s): R kidney repair, mass removed from left arm. Past Anesthesia/Blood Transfusion Reactions: Unable to Obtain Past Psychological History: PTSD Smoking Status: Former smoker Past Alcohol Use History: None Reported Past Drug Use History: None Reported - Past Family History Father Additional Family Medical History / Comment(s): from CVA General Exam Limitations: no limitations General appearance: alert, in no apparent distress Head exam: Present: atraumatic, other (No tenderness over the temporal artery) Eye exam: Present: normal appearance, PERRL, EOMI. Absent: nystagmus Expanded Eyelids: Normal Inspection: Bilateral Pupils: Regular, Round: Bilateral Sclera/Conjunctival: Normal Inspection: Bilateral Posterior chamber: Normal Inspection: Bilateral ENT exam: Present: normal oropharynx Neck exam: Present: normal inspection Respiratory exam: Present: normal lung sounds bilaterally Cardiovascular Exam: Present: regular rate, normal rhythm GI/Abdominal exam: Present: soft. Absent: tenderness Extremities exam: Present: normal inspection Neurological exam: Present: alert, oriented X3, CN II-XII intact. Absent: motor sensory deficit Psychiatric exam: Present: normal affect, normal mood Skin exam: Present: normal color Course Vital Signs 03/16/19 03/16/19 09:53 14:53 Temperature 98.0 F Pulse Rate 98 92 Respiratory 18 18 Rate Blood Pressure 140/82 119/72 O2 Sat by Pulse 97 97 Oximetry - Reevaluation(s) Reevaluation #1: 03/16/19 10:14 Ophthalmology paged 03/16/19 10:26 Case was discussed with Dr. Mc who will come evaluate patient. He does request CBC, sed rate, CRP and blood sugar. He does also rrequest dilating of the eyes. 03/16/19 13:53 Patient was seen earlier by Dr. Mc. Case was discussed with him. He does have concern for central retinal artery occlusion. She does request computed tomography scan of the brain. He states otherwise patient can be discharged and have follow-up echo and carotid ultrasound with primary care physician. He also does recommend simbrinza eyedrops 1 gtt bid. Continue with Plavix, no additional anticoagulation. EKG Findings - EKG Comments: EKG Findings:: Normal sinus rhythm 88. OH 170. QRS 88. QT 372. QTC 450. Normal axis. Normal QRS. No acute ST change. Medical Decision Making - Medical Decision Making Patient reevaluated and resting comfortably in bed. Patient updated on results and need for follow-up. - Lab Data Result diagrams: 03/16/19 10:45 03/16/19 10:45 Lab Results 03/16/19 03/16/19 03/16/19 Range/Units 10:45 10:45 11:14 WBC 6.8 (3.8-10.6) k/uL RBC 4.80 (3.80-5.40) m/uL Hgb 10.8 L (11.4-16.0) gm/dL Hct 35.0 (34.0-46.0) % MCV 73.0 L (80.0-100.0) fL MCH 22.5 L (25.0-35.0) pg MCHC 30.9 L (31.0-37.0) g/dL RDW 18.9 H (11.5-15.5) % Plt Count 442 (150-450) k/uL Neutrophils % 59 % Lymphocytes % 26 % Monocytes % 10 % Eosinophils % 2 % Basophils % 0 % Neutrophils # 4.0 (1.3-7.7) k/uL Lymphocytes # 1.8 (1.0-4.8) k/uL Monocytes # 0.7 (0-1.0) k/uL Eosinophils # 0.1 (0-0.7) k/uL Basophils # 0.0 (0-0.2) k/uL Manual Slide Review Performed Hypochromasia Moderate Poikilocytosis Slight Anisocytosis Slight Microcytosis Moderate ESR Cancelled 23 H Sodium 138 (137-145) mmol/L Potassium 4.1 (3.5-5.1) mmol/L Chloride 102 (98-107) mmol/L Carbon Dioxide 25 (22-30) mmol/L Anion Gap 11 mmol/L BUN 9 (7-17) mg/dL Creatinine 0.62 (0.52-1.04) mg/dL Est GFR (CKD-EPI)AfAm >90 (>60 ml/min/1.73 sqM) Est GFR (CKD-EPI)NonAf >90 (>60 ml/min/1.73 sqM) Glucose 202 H (74-99) mg/dL POC Glucose (mg/dL) (75-99) mg/dL POC Glu Ice Skating Teacher ID Calcium 9.0 (8.4-10.2) mg/dL C-Reactive Protein <5.0 (<10.0) mg/L 03/16/19 Range/Units 12:46 WBC (3.8-10.6) k/uL RBC (3.80-5.40) m/uL Hgb (11.4-16.0) gm/dL Hct (34.0-46.0) % MCV (80.0-100.0) fL MCH (25.0-35.0) pg MCHC (31.0-37.0) g/dL RDW (11.5-15.5) % Plt Count (150-450) k/uL Neutrophils % % Lymphocytes % % Monocytes % % Eosinophils % % Basophils % % Neutrophils # (1.3-7.7) k/uL Lymphocytes # (1.0-4.8) k/uL Monocytes # (0-1.0) k/uL Eosinophils # (0-0.7) k/uL Basophils # (0-0.2) k/uL Manual Slide Review Hypochromasia Poikilocytosis Anisocytosis Microcytosis ESR Sodium (137-145) mmol/L Potassium (3.5-5.1) mmol/L Chloride (98-107) mmol/L Carbon Dioxide (22-30) mmol/L Anion Gap mmol/L BUN (7-17) mg/dL Creatinine (0.52-1.04) mg/dL Est GFR (CKD-EPI)AfAm (>60 ml/min/1.73 sqM) Est GFR (CKD-EPI)NonAf (>60 ml/min/1.73 sqM) Glucose (74-99) mg/dL POC Glucose (mg/dL) 100 H (75-99) mg/dL POC Glu Ice Skating Teacher ID Salgat, Radha Calcium (8.4-10.2) mg/dL C-Reactive Protein (<10.0) mg/L - Radiology Data Radiology results: report reviewed (Computed tomography scan of the brain shows mild patchy changes of chronic small vessel ischemia. No acute intercranial abnormality.) Disposition Clinical Impression: Central retinal artery occlusion Disposition: HOME SELF-CARE Instructions (If sedation given, give patient instructions): Blurred Vision (ED) Additional Instructions: Please follow-up Monday with primary care physician. You'll need to have scheduled echo and carotid ultrasound. Please also follow-up with Dr. Mc within the week. Use eye drops: 1 drop twice a day to left eye. Continue Plavix Your prescription has been sent to [facility] Prescriptions: Brinzolamide/Brimonidine Tart [Simbrinza 1%-0.2% Eye Drops] 1 drop LEFT EYE BID #8 ml Is patient prescribed a controlled substance at d/c from ED?: No Referrals: Ami Mathews MD [Primary Care Provider] - 1-2 days Time of Disposition: 14:59
[2019-03-16] MEDS ORDERED: PHENYLEPHRINE 2.5% OPHTH DRP 2ML BOTH EYES STA (10:29)
[2019-03-16] MEDS ORDERED: TROPICAMIDE 1% OPHTH DROPS 2 ML BTL BOTH EYES STA (10:29)
[2019-03-16 11:05] LABS: Anisocytosis Slight; Basophils % (A) 0 %; Eosinophils # (A) 0.1 k/uL (0-0.7); Eosinophils % (A) 2 %; HGB 10.8 gm/dL (11.4-16.0); Hypochromasia Moderate; Lymphocytes # (A) 1.8 k/uL (1.0-4.8); Lymphocytes % (A) 26 %; MCH 22.5 pg (25.0-35.0); MCHC 30.9 g/dL (31.0-37.0); Mean Platelet Volume 6.2; Microcytosis Moderate; Monocytes # (A) 0.7 k/uL (0-1.0); Monocytes % (A) 10 %; Neutrophils % (A) 59 %; Platelet Count 442 k/uL (150-450); Poikilocytosis Slight; RDW 18.9 % (11.5-15.5); WBC 6.8 k/uL (3.8-10.6)
[2019-03-16 11:08] LABS: African American GFR (CKD) >90 (>60 ml/min/1.73 sqM); Anion Gap 11 mmol/L; Blood Urea Nitrogen 9 mg/dL (7-17); C Reactive Protein <5.0 mg/L (<10.0); Carbon Dioxide 25 mmol/L (22-30); Chloride 102 mmol/L (98-107); Glucose 202 mg/dL (74-99); Potassium 4.1 mmol/L (3.5-5.1); Sodium 138 mmol/L (137-145)
[2019-03-16 12:48] LABS: Glucose,Whole Blood 100 mg/dL (75-99)
--- NOTE | 2019-03-16 14:48 | CT ---
EXAMINATION TYPE: CT brain wo con DATE OF EXAM: 03/16/2019 COMPARISON: 11/30/2018 HISTORY: 64-year-old female left eye vision loss TECHNIQUE: Examination was done in axial plane without intravenous contrast. Coronal and sagittal r econstructions performed. CT DLP: 1080.4 mGycm Automated exposure control for dose reduction was used. FINDINGS: There is no evidence of acute intracranial hemorrhage, acute ischemic changes, mass, mass-effect, or extra-axial fluid collection. There is no effacement of cerebral sulci or basal subarachnoid cister ns. There is no hydrocephalus. There is no midline shift. Solares-white matter distinction is preserv ed. Mild patchy subcortical and periventricular white matter hypodensity suggests changes of chronic smal l vessel ischemic disease. Mastoid air cells well pneumatized. Mild mucosal thickening left ethmoid air cells and maxillary sinu ses. Orbits and globes are only partially visualized but show no gross abnormal abnormality. IMPRESSION: Mild patchy changes of chronic small vessel ischemic disease. No acute intracranial abnormality seen.
[2019-03-16 14:54] VITALS: BP 119/72; PULSE 92
--- NOTE | 2019-03-18 00:11 | CONS ---
CONSULTATION OPHTHALMOLOGY CONSULT: CHIEF COMPLAINT: Poor vision, left eye. HISTORY OF PRESENT ILLNESS: Ms. Ortiz presents with sudden onset of decreased vision in the left eye that began several hours ago this morning. The loss of vision has been constant. There are no alleviating factors. This has not fluctuated and been severe. There is no associated pain. REVIEW OF SYSTEMS: As above, otherwise negative. No headaches, shortness of breath, chest palpitations, weakness, or other symptoms. MEDICAL HISTORY: Significant for diabetes mellitus type 2, hypertension, history of COPD. ALLERGIES: 1. ASPIRIN. 2. SULFA. 3. CEFACLOR. 4. CODEINE. 5. MORPHINE. 6. CEFTRIAXONE. 7. SODIUM. MEDICATIONS: 1. Norvasc. 2. Metformin. 3. NovoLog. 4. Lipitor. 5. Ranitidine. 6. Lyrica. 7. Lasix. 8. Lisinopril. 9. Cymbalta. 10.Coreg. 11.ProAir. SURGICAL HISTORY: Ophthalmic surgical history significant for cataract surgery in the right eye in the past. FAMILY HISTORY: Noncontributory. SOCIAL HISTORY: Noncontributory. OPHTHALMIC EXAM: Visual acuity is 20/40 in the right eye at near with a near card without correction and no light perception in the left eye. Pupils are reactive, however, there is an afferent pupillary defect in the left eye. Extraocular movements are full in both eyes. Confrontation visual field is normal in the right and she is unable to perform in the left. Intra-ocular pressures are 18 in both eyes. Anterior examination reveals the cornea is clear in both eyes, iris is within normal limits, the right eye has a posterior chamber intraocular lens, left eye has a nuclear sclerotic cataract. Posterior examination reveals normal retinal structure in the right and the left eye shows poor perfusion with minimal blood in the arteries and swollen retina. ASSESSMENT AND PLAN: 1. Central retinal artery occlusion, left eye. I recommend the following: Echocardiogram, carotid ultrasound, and head CT. This should be treated as an ischemic stroke. I also recommend starting intra-ocular pressure lowering drops either brimonidine b.i.d. in the left eye or Simbrinza b.i.d. in the left eye. Unfortunately, the prognosis of good vision is poor in these situations. Lowering intra-ocular pressure may help. The etiology needs to be investigated with the above tests and also her cardiovascular risk factors need to be optimized. 2. Nuclear sclerotic cataract, left eye. This is not significant and not the cause of poor vision. Thank you for allowing me to participate in this patient's care. MMIRVING / ERROLN: [id number] /
== END 2019-03-16 15:06 | disposition home or self-care (01) ==
LOC: EC 09:49
DX: H34.12 Central retinal artery occlusion, left eye (principal); H25.12 Age-related nuclear cataract, left eye; E11.9 Type 2 diabetes mellitus without complications; I10 Essential (primary) hypertension; F43.10 Post-traumatic stress disorder, unspecified; Z79.02 Long term (current) use of antithrombotics/antiplatelets; Z79.4 Long term (current) use of insulin; Z79.899 Other long term (current) drug therapy; Z88.1 Allergy status to other antibiotic agents; Z88.2 Allergy status to sulfonamides; Z88.5 Allergy status to narcotic agent; Z88.6 Allergy status to analgesic agent; Z87.891 Personal history of nicotine dependence
CPT/HCPCS: 36415; 70450; 80048; 85025; 85652; 86140; 99285

== ENCOUNTER → 2019-04-11 | Outpatient (CLI) | payer MEDICARE, OTHER ==
--- NOTE | 2019-04-12 08:25 | US ---
EXAMINATION TYPE: US carotid duplex BILAT DATE OF EXAM: 04/11/2019 COMPARISON: CLINICAL HISTORY: Z86.73 history TIA, H34.12 Central retinal artery. Patient states having a TIA November 2018. Left eye vision loss per patient. EXAM MEASUREMENTS: RIGHT: Peak Systolic Velocity (PSV) cm/sec ----- Right CCA: 65.6 ----- Right ICA: 69.0 ----- Right ECA: 58.3 ICA/CCA ratio: 1.1 RIGHT: End Diastole cm/sec ----- Right CCA: 19.7 ----- Right ICA: 24.4 ----- Right ECA: 9.9 LEFT: Peak Systolic Velocity (PSV) cm/sec ----- Left CCA: 73.7 ----- Left ICA: 80.4 ----- Left ECA: 51.4 ICA/CCA ratio: 1.1 LEFT: End Diastole cm/sec ----- Left CCA: 24.0 ----- Left ICA: 25.2 ----- Left ECA: 8.6 VERTEBRALS (direction of flow): Right Vertebral: Antegrade Left Vertebral: Antegrade Rhythm: Normal No elevated velocities or significant stenosis. Plaque seen in left bulb. Bilateral wall thickening. IMPRESSION: 1. Atheromatous plaquing within the bilateral carotid vessels may be somewhat greater on the left wit h turbulent flow. Significant flow-limiting stenosis however is not evident. Criteria for Assigning % of Stenosis / Diameter reduction (Estimation based on the indirect measurements of the internal carotid artery velocities (ICA PSV). 1. Normal (no stenosis)=ICA PSV < 125 cm/s: ratio < 2.0: ICA EDV<40 cm/s. 2. Less than 50% stenosis=ICA PSV < 125 cm/s: ratio < 2.0: ICA EDV<40 cm/s. 3. 50 to 69% stenosis=ICA PSV of 125 to 230 cm/s: ration 2.0 ? 4.0: ICA EDV 40-100 cm/s. 4. Greater than 70% stenosis to near occlusion= ICA PSV > 230 cm/s: ratio > 4.0: ICA EDV > 100 cm/s. 5. Near occlusion= ICA PSV velocities may be low or undetectable: variable ratio and ICA EDV. 6. Total occlusion=unable to detect flow.
--- NOTE | 2019-04-12 10:51 | ECHOF ---
Referral Reason:Z86.73 history TIA, H34.12 Central retinal artery MEASUREMENTS -------- HEIGHT: 157.5 cm WEIGHT: 63.5 kg BP: RVIDd: 3.2 cm (< 3.3) IVSd: 1.2 cm (0.6 - 1.1) LVIDd: 4.8 cm (3.9 - 5.3) LVPWd: 1.2 cm (0.6 - 1.1) IVSs: 1.6 cm LVIDs: 3.7 cm LVPWs: 1.6 cm LA Diam: 3.6 cm (2.7 - 3.8) LAESV Index (A-L): 29.81 ml/m Ao Diam: 2.8 cm (2.0 - 3.7) AV Cusp: 1.8 cm (1.5 - 2.6) LA Diam: 3.3 cm (2.7 - 3.8) MV EXCURSION: 22.213 mm (> 18.000) MV EF SLOPE: 154 mm/s (70 - 150) EPSS: 1.4 cm MV E Kian: 0.52 m/s MV DecT: 145 ms MV A Kian: 0.72 m/s MV E/A Ratio: 0.72 RAP: 5.00 mmHg RVSP: 16.38 mmHg TAPSE: 2.11 cm FINDINGS -------- Sinus rhythm. This was a technically adequate study. The left ventricular size is normal. There is mild concentric left ventricular hypertrophy. Overa ll left ventricular systolic function is normal with, an EF between 55 - 60 %. The right ventricle is normal in size. Normal LA size by volume 22+/-6 ml/m2. The right atrial size is normal. Possible PFO The aortic valve is trileaflet, and appears structurally normal. No aortic stenosis or regurgitation. The mitral valve is normal. Mild mitral regurgitation is present. Mild tricuspid regurgitation present. There is no evidence of pulmonary hypertension. The right v entricular systolic pressure, as measured by Doppler, is 16.38mmHg. There is no pulmonic regurgitation present. The aortic root size is normal. There is no pericardial effusion. CONCLUSIONS -------- 1. Sinus rhythm. 2. This was a technically adequate study. 3. The left ventricular size is normal. 4. There is mild concentric left ventricular hypertrophy. 5. Overall left ventricular systolic function is normal with, an EF between 55 - 60 %. 6. Normal LA size by volume 22+/-6 ml/m2. 7. Possible PFO 8. The aortic valve is trileaflet, and appears structurally normal. No aortic stenosis or regurgitati on. 9. The mitral valve is normal. 10. Mild mitral regurgitation is present. 11. Mild tricuspid regurgitation present. 12. There is no evidence of pulmonary hypertension. 13. There is no pulmonic regurgitation present. 14. The aortic root size is normal. 15. There is no pericardial effusion. MARINE ELECTRICIAN: Gisela Cutler RDCS
== END | disposition home or self-care (01) ==
LOC: RADUSMAIN 15:28
PROVIDERS: ATTEND Family Medicine
DX: I65.23 Occlusion and stenosis of bilateral carotid arteries (principal); I08.1 Rheumatic disorders of both mitral and tricuspid valves; H54.62 Unqualified visual loss, left eye, normal vision right eye; Z86.73 Personal history of transient ischemic attack (TIA), and cerebral infarction without residual deficits
CPT/HCPCS: 93306; 93880

== ENCOUNTER → 2019-04-17 | Outpatient (CLI) | payer MEDICARE, OTHER ==
[2019-04-17 12:10] VITALS: BP 132/80; PULSE 87; RESP 18
--- NOTE | 2019-04-18 09:13 | P.PAINCN ---
History of Present Illness - Reason for Consult Consult date: 04/17/19 - History of Present Illness This is initial consultation visit for this 64 years old female with a chronic history of severe low back pain with radiation to the buttock area, the pain started more than 15 years ago, so patient complaining of severe left rib cage pain with radiation to the abdomen and radiated to the low back area, patient was treated at [facility], but she moved to [facility] recently, for this reason she is transferring her to us, the intensity of the pain is 6/10 and increases with activity to 8-9/10, she tried interventional pain management with variable results and she tried a spinal cord stimulator which she didn't like the feeling of the stimulation, she tried chiropractors with minimal benefit, the pain is severe and intense interfere with the quality of life and preventing her from doing any activity of daily livings, she denies any fever or night sweats which she denies any change in the bowel movements or urination, she is currently taking Percocet 10/325 every 6 hours on Zanaflex 4 mg twice a day and Lyrica 300 mg twice a day she is also on Plavix because 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 Past Anesthesia/Blood Transfusion Reactions: Unable to Obtain Past Psychological History: PTSD Smoking Status: Former smoker Past Alcohol Use History: None Reported Additional Past Alcohol Use History / Comment(s): smoker for 48 years 1 1/2ppd quit 03/11/19 Past Drug Use History: None Reported - Past Family History Father Additional Family Medical History / Comment(s): from CVA Medications and Allergies Home Medications Medication Instructions Recorded Confirmed Type Carvedilol [Coreg] 12.5 mg PO BID 11/30/18 04/17/19 History DULoxetine HCL [Cymbalta] 120 mg PO DAILY 11/30/18 04/17/19 History Furosemide [Lasix] 20 mg PO DAILY 11/30/18 04/17/19 History Insulin Detemir [Levemir Flextouch] 18 units SQ HS 11/30/18 04/17/19 History Lisinopril [Zestril] 40 mg PO DAILY 11/30/18 04/17/19 History amLODIPine [Norvasc] 5 mg PO DAILY 11/30/18 04/17/19 History metFORMIN HCL [Glucophage] 1,000 mg PO BID 11/30/18 04/17/19 History oxyCODONE-APAP 10-325MG [Percocet 1 tab PO QID PRN 11/30/18 04/17/19 History 10-325 mg] tiZANidine [Zanaflex] 4 mg PO Q6H PRN 11/30/18 04/17/19 History Clopidogrel [Plavix] 75 mg PO DAILY #30 tab 12/02/18 04/17/19 Rx Albuterol Sulfate [Proair Hfa] 1 - 2 puff INHALATION Q4HR PRN 03/16/19 04/17/19 History Brinzolamide/Brimonidine Tart 1 drop LEFT EYE BID #8 ml 03/16/19 04/17/19 Rx [Simbrinza 1%-0.2% Eye Drops] INSULIN ASPART (NovoLOG) [NovoLOG See Protocol SQ ACHS 03/16/19 04/17/19 History (formulary)] Ranitidine HCl [Zantac] 150 mg PO HS 03/16/19 04/17/19 History Atorvastatin [Lipitor] 80 mg PO HS 04/11/19 04/17/19 History Omeprazole [PriLOSEC] 20 mg PO AC-BID 04/11/19 04/17/19 History Potassium Chloride 10 meq PO BID 04/11/19 04/17/19 History Pregabalin [Lyrica] 300 mg PO BID 04/11/19 04/17/19 History Varenicline [Chantix Continuing 1 mg PO BID 04/11/19 04/17/19 History Pack] Allergies Allergy/AdvReac Type Severity Reaction Status Date / Time cefaclor [From Ceclor] Allergy Rash/Hives Verified 04/11/19 11:29 ceftriaxone [From Rocephin] Allergy Rash/Hives Verified 04/11/19 11:29 Sulfa (Sulfonamide Allergy Rash/Hives Verified 04/11/19 11:29 Antibiotics) aspirin AdvReac Unknown Verified 04/11/19 11:29 Childhood morphine AdvReac Unknown Verified 04/11/19 11:29 Physical Exam Vitals: Vital Signs Pulse Resp BP Pulse Ox 04/17/19 12:00 87 18 132/80 95 REVIEW OF ORGAN SYSTEMS: CONSTITUTIONAL: No fevers or chills. No recent weight loss. EYES: History of troubles with vision. No glasses. HEENT: No difficulties with hearing. No nosebleeds. No difficulty swallowing. Respiratory.=+ Left-sided chest wall pain Denies any troubles with breathing or dyspnea on exertion. CARDIOVASCULAR: Denies any chest pain, palpitations, or recent heart attacks. GASTROINTESTINAL: Denies fatty food intolerance. Has change in bowel habits and gas bloat. GENITOURINARY: Denies any blood in urine. Has increased urinary frequency. NEUROLOGICAL: Denies any numbness or tingling along the distal extremities. No seizure disorders or headaches. MUSCULOSKELETAL: Has back pain, stiffness or joint arthritis. SKIN: Past t skin cancer. No rash. PSYCHIATRIC: Denies current depression or suicidal thoughts. ENDOCRINE: Denies current thyroid disorders. Denies any blood sugar glucose intolerance. HEME/LYMPHATIC: Denies any lumps and bumps around the neck. History of deep venous thrombosis. ALLERGY/IMMUNOLOGY: No immunoglobulin therapy. No immune deficiencies. BREAST: Denies current breast lumps, pain or nipple discharge. Physical Examinations : Constitutiona : Cooperative , not in acute distress . HEENT : nech : supple , no Lymphadenopathy , normal thyroid size . eyes : no ptosis , no icterus, no photophobia . ENT : normal of hearing , normal oropharynx , no Thrush . Respiratory : Chest clear to auscultations Bilaterally , no wheezing , no Rhonchi . Cardiovascula : regular rate and rhythem , S1 , S2 , no S3 , no S4. Gastrointestina : abdomen soft no tenderness , bowel sounds , no organomegally . Genitourinary : Defferred . neurologic : Cranial nerve II to XII intact , no focal neurological deffecit . psychatric : alert , oriented X 3 , appropriate affect , intact judgment and insight . Lymphatic : no Lymphadenopathy . musculoskeltal : thoracic Spine = positive tenderness over the left intercostal area from T10 to T12 Lumber spine moter stegnth lower extremities ,thigh and legs 4/5 Right side , 4/5 Left side deep tendon reflexes : normal Knee Jerk , normal ankle Jerk positive lumber facet Loading Test Range of motion of the lumbar spine Flexion 30 degrees, extension 10 degrees strait leg raising test , positive at 30 degree Fabere test positive RT and positive LT . tenderness over the Sacroiliac joint on the R and L sides Results Comments: none available Assessment and Plan Plan: Assessment and plan= chronic low back pain secondary to lumbar degenerative disc disease , lumbar spondylosis with lumbar facet arthropathy . Chronic left-sided chest wall pain most likely secondary to left intercostal neuralgia and possible left costochondritis chronic and current use of high-risk medication (opioids) Patient denies any side effects of the current pain medication and the current treatment/medication helping the patient to do activity of daily living , Diagnoses, prognosis, treatment options, including but not limited to physical therapy, medication management, interventional therapies, and surgery, were discussed with the patient All the questions answered The narcotic consent was signed and patient agreed and understood the side effects and complications of opioid treatment. Patient signed the narcotic agreement, and was orally counseled, not to overuse, not to abuse, not to Divert , not tp sell pain medication, and to take it as prescribed only, Patient was counseled not to drive or operate heavy equipment while using narcotic medication, and advised not to use alcohol or any Illicit drugs while using the narcotis. understanding that lack of compliance with any of the above instructions, w ill likely to cause discharge from, the pain service, not to renew his narcotic prescriptions [facility] Reviwed and it was apropriate . Medication managements= patient will be given prescription refills for Percocet 10/325 every 6 hours Zanaflex 4 mg twice a day and Lyrica 300 mg twice a day Patient signed narcotic agreement. MRI of the lumbar spine was ordered and patient will come for follow-up visit we will check the results of the MRI. Most likely patient did diagnostic medial branch block lumbar area Next visit we'll do urine drug screen , Time with Patient: Greater than 30 PQRS Measure Charge Sheet Measure #130: Documentation of Current Meds in Medical Chart: Patient's medications documented in chart Measure #226: Tobacco Use: Screen & Cessation Intervention: Pt not a tobacco user Measure #111: Pneumonia Vaccination: Pneumococcal vaccine NOT administered or previously given Measure #47: Advance Care Plan: Advance care planning discussed & documented, pt chose/unable to give Measure #412: Opioid Treatment Agreement: Documented signed opioid trtmnt agreemnt min once during opioid trtmnt Measure #408: Opioid Therapy Follow-up Evaluation: Patient had f/u eval minimum every 3 months during opioid therapy Measure #317: Preventitive Care & Scrn High Bld Press & F/U: Normal blood pressure, f/u not required Measure #128: Body Mass Index (BMI) Screening & Follow-up: BMI documented ABOVE normal parameters - f/u documented Measure #131: Pain Assessment & Follow-up: Pain positive & plan documented, Follow-up scheduled Measure #431: Unhealthy Alcohol Use Preventative Care & Scrn: Patient not identified as an unhealthy alcohol user PQRS Narrative: Smoking Status Former smoker Narcotic Agreement Date Signed 04/17/19 Blood Pressure 132/80 Pain Intensity [Back] 3 Pain Intensity [Left Upper 4 Abdomen] Scale Used Numeric (1 - 10) Hx Alcohol Use (MH) No Home Medications: Ambulatory Orders Carvedilol [Coreg] 12.5 mg PO BID 11/30/18 DULoxetine HCL [Cymbalta] 120 mg PO DAILY 11/30/18 Furosemide [Lasix] 20 mg PO DAILY 11/30/18 Insulin Detemir [Levemir Flextouch] 18 units SQ HS 11/30/18 Lisinopril [Zestril] 40 mg PO DAILY 11/30/18 amLODIPine [Norvasc] 5 mg PO DAILY 11/30/18 metFORMIN HCL [Glucophage] 1,000 mg PO BID 11/30/18 oxyCODONE-APAP 10-325MG [Percocet 10-325 mg] 1 tab PO QID PRN 11/30/18 tiZANidine [Zanaflex] 4 mg PO Q6H PRN 11/30/18 Clopidogrel [Plavix] 75 mg PO DAILY #30 tab 12/02/18 Albuterol Sulfate [Proair Hfa] 1 - 2 puff INHALATION Q4HR PRN 03/16/19 Brinzolamide/Brimonidine Tart [Simbrinza 1%-0.2% Eye Drops] 1 drop LEFT EYE BID #8 ml 03/16/19 INSULIN ASPART (NovoLOG) [NovoLOG (formulary)] See Protocol SQ ACHS 03/16/19 Ranitidine HCl [Zantac] 150 mg PO HS 03/16/19 Atorvastatin [Lipitor] 80 mg PO HS 04/11/19 Omeprazole [PriLOSEC] 20 mg PO AC-BID 04/11/19 Potassium Chloride 10 meq PO BID 04/11/19 Pregabalin [Lyrica] 300 mg PO BID 04/11/19 Varenicline [Chantix Continuing Pack] 1 mg PO BID 04/11/19
== END | disposition home or self-care (01) ==
LOC: PNWHC3 11:29
PROVIDERS: ATTEND Specialist
DX: G89.29 Other chronic pain (principal); M51.36 Other intervertebral disc degeneration, lumbar region; M47.816 Spondylosis without myelopathy or radiculopathy, lumbar region; M46.96 Unspecified inflammatory spondylopathy, lumbar region; E11.9 Type 2 diabetes mellitus without complications; I10 Essential (primary) hypertension; R07.89 Other chest pain; Z87.891 Personal history of nicotine dependence; Z79.899 Other long term (current) drug therapy; Z79.4 Long term (current) use of insulin; Z79.891 Long term (current) use of opiate analgesic; Z79.02 Long term (current) use of antithrombotics/antiplatelets; Z88.1 Allergy status to other antibiotic agents; Z88.2 Allergy status to sulfonamides; Z88.6 Allergy status to analgesic agent; Z88.5 Allergy status to narcotic agent
CPT/HCPCS: 99211

== ENCOUNTER → 2019-04-29 | Outpatient (CLI) | payer MEDICARE, OTHER ==
--- NOTE | 2019-04-29 21:44 | MR ---
EXAMINATION TYPE: MR lumbar spine wo con DATE OF EXAM: 04/29/2019 COMPARISON: None HISTORY: Chronic LBP, BLE radic, spondylosis TECHNIQUE: Multiplanar, multisequence images of the lumbar spine were acquired. L1-L2: Posterior broad-based disc bulge causes mild anterior mass effect on the thecal sac. There is facet arthropathy change present. Circumferential extension endplate disc complex results in foramina l encroachment which is mild bilaterally. No significant central stenosis. L2-L3: Posterior broad-based disc bulge causes mild anterior mass effect on the thecal sac. There is some facet arthropathy with hypertrophy ligamentum flavum causes some posterior lateral mass effect o n the thecal sac greater on the left. Circumferential extension endplate disc complex results in fora victorino encroachment contributed by the listhesis on the left. No significant central stenosis. L3-L4: Posterior broad-based disc bulge causes mild anterior mass effect on the thecal sac. No signif icant central stenosis. Circumferential extension endplate disc complex contributes with the scoliosi s to cause some foraminal encroachment on the left. L4-L5: Facet arthropathy with hypertrophy ligamentum flavum causes some posterior lateral mass effect on the thecal sac greater on the right. Circumferential extension endplate disc complex results in f oraminal encroachment greater on the right than on the left, there is mild anterior mass effect on th e thecal sac, no significant central stenosis. L5-S1: Small posterior broad-based disc bulge causes slight anterior mass effect on the thecal sac. C ircumferential extension endplate disc complex results in some right-sided foraminal encroachment. Th ere is facet arthropathy present greater on the right. Lumbar segments are intact. No paraspinal masses are identified. Conus medullaris has a normal appe arance. There is an underlying scoliosis present. Low signal at the inferior margin of the L1 vertebr al body on T1 and T2-weighted sequences may represent sclerosis. There is multilevel spondylosis. Los s of disc height signal is present at the intervertebral levels. Endplate discogenic marrow signal ch anges are present. There is multilevel Schmorl's node formation at multiple endplates. IMPRESSION: Scoliosis, degenerative disc disease, facet arthropathy, multilevel foraminal encroachment. No signif icant spinal stenosis.
== END | disposition home or self-care (01) ==
LOC: RADMRIMAIN 20:35
PROVIDERS: ATTEND Specialist
DX: M51.36 Other intervertebral disc degeneration, lumbar region (principal); M46.96 Unspecified inflammatory spondylopathy, lumbar region; M41.86 Other forms of scoliosis, lumbar region
CPT/HCPCS: 72148

== ENCOUNTER → 2019-05-06 | Outpatient (CLI) | payer MEDICARE, OTHER ==
--- NOTE | 2019-05-07 07:05 | P.PN ---
Progress Note - Text Progress Note Date: 05/07/19 (Ophthalmologic this BUT 2525 no few weeks ago I informed is on activity was optional patient not is unable to the old him the OxyContin blockade. Other notes a question I have issued at home with explained to limiting recovery on a copy of) Progress Note - Text Sheryl presents for her first follow-up visit. She has a history of low back pain and pain down her left leg to above her knee. An MRI was ordered for her on her last visit she is here to review the results. Pain today is a 67 out of 10 severity mostly across her low back. Pain is worse with standing for long periods, walking, bending. It's relieved with rest, medication, and laying down. She denies any severe radicular pain into the lower extremity's. She does describe some numbness on her left thigh that occurs frequently. She does not report any weakness of 1 leg over the other. She presents with a prescription for Percocet that was filled her on her last visit. She ran out of the medication prescribed by her PCP, and is unable to fill the medication secondary to a do not fill date on it. She denies any bowel or bladder incontinence, any saddle anesthesia. In addition to above, 13-point review of systems is also negative for chest pain, shortness of breath, changes in vision, changes in hearing, new onset weakness, abdominal pain, diarrhea, extreme fatigue, malaise, fever, skin changes, homicidal or suicidal ideation, or bowel or bladder incontinence. Vital Signs: Reviewed in EMR Gen: WDWN, AAOx3, NAD HEENT: NCAT, EOMI, hearing grossly normal Pulm: resp unlabored Neck: supple, trachea midline ROM in flexion lumbar spine: reduced secondary to pain ROM in extension lumbar spine: reduced secondary to pain Lumbar paravertebral tenderness: + + Facet loading: + +bilateral SI joint tenderness: No tenderness of SI joints Duke's test: Negative Straight leg raise: Negative bilateral Lower extremity: decreased ROM dorsiflexion/plantarflexion strength, hip flexion/extension, and knee flexion/extension secondary to generalized weakness. Difficult to ascertain reflexes of patella and Achilles secondary to patient movement Cervical spine: Appropriate alignment noted. Upper extremity strength symmetrical in the biceps/triceps/deltoid muscles. Reflexes symmetrical on brachioradialis and biceps 1/2. No primitive signs present. Neuro: CN II-XII grossly intact, muscle strength lower extremities PRESERVED Gait: Transitions poorly, utilizes a wheelchair and 4. walker for ambulation. Imaging: MRI lumbar spine: 04/29/19 1. Diffuse facet arthropathy noted from L1 to S1. Worse at L4-L5 and L5-S1. 2. At L3-L4 there is a posterior broad-based disc bulge causing anterior mass effect on thecal sac. There is circumferential extension endplate this complex which contributes with the scoliosis to cause some foraminal encroachment on the left. 3. L4-L5 is facet arthropathy with ligamentum flavum hypertrophy which causes some posterior lateral mass effect on the thecal sac greater on the right. There is foraminal narrowing on the right greater than left. No central canal stenosis 4. At L5-S1 there is small posterior disc bulge which causes slight anterior mass effect on thecal sac. There is foraminal stenosis on the right. Also facet arthropathy present on the right Assessment: 1. Lumbar spondylosis 2. Lumbar radiculopathy at Left L3-L4 3. Scoliosis Plan: 1. Explanation: Opioid and psychological risk scores were reviewed. Diagnoses, prognoses, and multiple treatment options including but not limited to physical therapy, interventional therapies, adjuvant medical therapies, narcotic medication therapies, and surgery were discussed with the patient and all questions were answered to the patient's satisfaction. 2. Opioid agreement: Opioid agreement was signed and placed in the chart. A start talking form was placed in the chart. 3. Counseling: The patient was counseled extensively on EXERCISE. Specifically, the patient was instructed regarding the importance of exercise in the context of both chronic pain and overall health. 4. Procedures: Bilateral lumbar medial branch blocks L3-L4, L4-L5, L5-S1. 5. Consultations: None 6. Investigations: Maps reviewed and appropriate with patient's history. UDS was done this visit. 7. Medications: Percocet 10 mg/325 mg 4 times a day when necessary 28 days. 112 tablets prescribed. No refills given. 8. Disposition: f/u for procedure as scheduled, follow up on UDS ordered today. We discussed proceeding with a series of epidural injections at the left L3-L4 neural foramen, however patient wished to proceed with the medial branch blocks as her low back pain is most bothersome for her.. PQRS measures: 1-Patient's medications are documented in the chart. 2-Tobacco use is negative, counseling given 3-Patient has not had a pneumococcal vaccine. 4-Advanced care planning discussed, patient unable to give. 5-Opioid contract signed with the patient. 6-Pain positive, follow-up visit or procedure scheduled 7-Patient's blood pressure measured and documented, and WNL. 8-Patient's weight was measured, and body mass index ABOVE the normal limits, and counseling was done. Patient instructed to follow up with PCP. 9-Patient WAS NOT identified as an unhealthy alcohol user.
== END | disposition home or self-care (01) ==
LOC: PNWHC3 13:26
PROVIDERS: ATTEND Anesthesiology
DX: M47.26 Other spondylosis with radiculopathy, lumbar region (principal); M41.86 Other forms of scoliosis, lumbar region; Z79.891 Long term (current) use of opiate analgesic
CPT/HCPCS: 80307; G0482; G0463; 99211

== ENCOUNTER 2019-05-09 07:00 | Day surgery (SDC) | payer MEDICARE, OTHER ==
[2019-05-07 10:06] VITALS: BMI 26.5
[2019-05-09 07:28] LABS: Glucose,Whole Blood 140 mg/dL (75-99)
[2019-05-09 07:31] VITALS: RESP 16; TEMP 98.8
[2019-05-09] MEDS ORDERED: SODIUM CHLORIDE 0.9% 500 ML 500 ML IV ONE (07:35)
[2019-05-09] MEDS ORDERED: fentaNYL (PF) 50 MCG/ML 2 ML AMP ONE (08:08)
[2019-05-09] MEDS ORDERED: BENZOCAINE SPRAY 1 CAN MUCOUS MEM ONE (08:19)
[2019-05-09] MEDS ORDERED: fentaNYL (PF) 50 MCG/ML 2 ML AMP IV ONE (08:32)
[2019-05-09] MEDS ORDERED: MIDAZOLAM 2 MG/2 ML VIAL IVP ONE ×2 (08:32→08:38)
[2019-05-09 09:57] VITALS: BP 119/69; PULSE 83
--- NOTE | 2019-05-09 10:08 | ECHOT ---
TRANSESOPHAGEAL ECHOCARDIOGRAM DATE OF SERVICE: May 09, 2019 PERFORMING PHYSICIAN: Jarod Centeno MD. PROCEDURE PERFORMED: Transesophageal echocardiogram. INDICATION: This is a very pleasant 64-year-old female patient who sees Dr. Parmar in the office as an outpatient who was found to have patent foramen ovale on transthoracic echocardiogram. She was brought today to undergo a KRISTINE for better clarification. COMPLICATION: None. LEVEL OF SEDATION: Moderate with sedation length of 10 minutes. PROCEDURE DESCRIPTION: After obtaining an informed consent, the patient was brought to the transesophageal echocardiogram suite. A pulse oximetry and heart rate monitors were attached to the patient. Subsequently the patient was turned into left lateral position. Subsequently the transesophageal echocardiogram was advanced through the bite guard to the mid esophagus where 2D echocardiogram images as well as color Doppler images of various cardiac structures were obtained. Particular attention was paid to the interatrial septum. We did a transesophageal echocardiogram using 2D echo, color Doppler, pulse-wave Doppler, and continuous-wave Doppler. The procedure was completed without any complication. FINDINGS: The left ventricular dimension and systolic function appeared to be within normal limits. The ejection fraction appeared to be in the range of 50% to 55%. Right ventricle appeared to be of normal size and function. The left atrium and right atrium appeared to be within normal limits for dimension. The left atrial appendage appeared to be free from any thrombus. The interatrial septum appeared to be intact using color- flow Doppler as well as contrast study. I did perform 4 contrast injections and I could not verify any patent foramen ovale. Beside that, the interatrial septum appeared to be very solid. The aortic valve is trileaflet valve without stenosis with trace insufficiency. The mitral valve seems to be normal with mild MR only. There was mild tricuspid regurgitation seen. CONCLUSION: 1. Intact interatrial septum without any evidence of patent foramen ovale or atrial septal defect. 2. Normal left atrial appendage without any evidence of thrombus. 3. Overall normal cardiac chamber sizes. 4. Normal left ventricular dimension and systolic function. 5. Normal right ventricular dimension and systolic function. 6. Trileaflet aortic valve without stenosis with trace insufficiency. 7. Mildly thickened mitral valve leaflets with mild mitral regurgitation. 8. Normal tricuspid valve and pulmonic valve. 9. No evidence of pericardial effusion. MMODL / IJN: [id number] /
== END 2019-05-09 10:18 | disposition home or self-care (01) ==
LOC: CATHCVL 07:00
PROVIDERS: ATTEND Internal Medicine Interventional Cardiology
DX: I34.0 Nonrheumatic mitral (valve) insufficiency (principal); H34.12 Central retinal artery occlusion, left eye; I10 Essential (primary) hypertension; E11.9 Type 2 diabetes mellitus without complications; E78.00 Pure hypercholesterolemia, unspecified; E78.5 Hyperlipidemia, unspecified; F17.210 Nicotine dependence, cigarettes, uncomplicated; H54.62 Unqualified visual loss, left eye, normal vision right eye; Z86.73 Personal history of transient ischemic attack (TIA), and cerebral infarction without residual deficits; Z79.4 Long term (current) use of insulin; Z79.899 Other long term (current) drug therapy; Z88.6 Allergy status to analgesic agent; Z88.5 Allergy status to narcotic agent; Z88.2 Allergy status to sulfonamides; Z91.018 Allergy to other foods
CPT/HCPCS: 93312; 93320; 93325; J2250; J3010

== ENCOUNTER 2019-05-16 06:20 | Day surgery (SDC) | payer MEDICARE, OTHER ==
[2019-05-14 13:26] VITALS: BMI 27.1
[~2019-05-16 06:20] MED LIST: LACTATED RINGERS 1,000 ML IV SCH
[2019-05-16 06:38] VITALS: TEMP 96.8
[2019-05-16 06:44] LABS: Glucose,Whole Blood 144 mg/dL (75-99)
[2019-05-16] MEDS ORDERED: LIDOCAINE 1% 20 ML VIAL (10MG/ML) FOR IV START INTRADERMA ONE (06:44)
--- NOTE | 2019-05-16 07:36 | P.PCN ---
Date of Procedure: 05/16/19 Procedure(s) Performed: PREOPERATIVE DIAGNOSIS : 1- Lumbar spondylosis with Facet Arthropathy without myelopathy . 2- Lumber degenerative disc disease POSTOPERATIVE DIAGNOSIS: 1- Lumbar spondylosis with Facet Arthropathy without myelopathy . 2- Lumber degenerative disc disease PROCEDURE: Diagnostic bilateral L2 ,L3 , L4 , and L5 medial branch block under fluoroscopy guidance(fluoroscopy images available in the radiology Department ) (To block the facet joints between the L3- 4, L4 -5 , L5-S1 ) ANESTHESIA: Local with Ropivacain 0.5 % 6 ml , moderate sedation with intravenous Versed 1 mg and Fentanyl 50 mcg. EBL: Minimal COMPLICATION: None. IV FLUIDS: 100 mL of normal saline. PROCEDURE INDICATION: Chronic low back pain secondary to Facet arthropathy unresponsive to conservative treatment. PROCEDURE DESCRIPTION: the patient was seen and identified in the preop holding area , risks and benefits and possible complications of the procedure and alternative were discussed with the patient, and the patient agreed to proceed with the procedure and signed the consent IV was started and vital signs monitored during the procedure and fluoroscopy was used to maximize the benefit and accuracy of the needle placement, and sedation was given to decrease patient anxiety, patient was taken to the procedure room and placed in prone position vital signs monitored in the back prepped with chlorhexidine X3 then under strict sterile technique using a right oblique fluoroscopy ,the junction of the transverse process and the superior articulating process of the right L2 , L3 , L4, and L5 vertebra which corresponding to the fluoroscopy image of the eye of the William dog on the block side for the medial branches and subsequently , after local infiltration of skin and subcu tissuies with Ropivacaine 0.5 % , one mL at each level ,then 25-gauge Quincke-type needles , 3 needle was used , each one of them placed at the junction of the base of the transverse process and the superior articular process at the appropriate level, and the needle was advanced until the periosteum contacted, needle placement confirmed with AP oblique and lateral view and after appropriate needle placement confirmed, and after negative aspiration for heme and CSF and there was no paresthesia 2 mL of Ropivacaine 0.5% mixed with 20 mg Depo-Medrol , then half mL injected at each level after negative aspiration the needle subsequently removed and the same procedure repeated for the left side at left side at L2 , L3, L4 and [id number]. At the end of the procedure and the needles removed and a bandage applied after the skin was cleaned the cleaning solution patient taken to recovery room in stable condition and monitors in the recovery room for 20-30 minutes and discharged home in stable condition after discharge criteria met and patient will follow up with the pain clinic in 2-4 weeks
[2019-05-16] MEDS ORDERED: IV FLUID CONTINUATION 700 ML IV ONE (07:37)
[2019-05-16 07:49] VITALS: PULSE 80; RESP 18
[2019-05-16 08:02] VITALS: BP 112/75
--- NOTE | 2019-05-17 12:50 | FL ---
EXAMINATION TYPE: FL guided pain mgmt statistic DATE OF EXAM: 05/16/2019 HISTORY: Flouroscopy time Less than 1 minute of fluoroscopy provided. IMPRESSION: 1. Fluoroscopy time.
== END 2019-05-16 08:06 | disposition home or self-care (01) ==
LOC: ORPAIN 06:20
PROVIDERS: ATTEND Specialist
DX: G89.29 Other chronic pain (principal); M47.816 Spondylosis without myelopathy or radiculopathy, lumbar region; M51.36 Other intervertebral disc degeneration, lumbar region; I10 Essential (primary) hypertension; E11.9 Type 2 diabetes mellitus without complications; Z88.1 Allergy status to other antibiotic agents; Z88.2 Allergy status to sulfonamides; Z88.6 Allergy status to analgesic agent; Z88.5 Allergy status to narcotic agent; Z79.02 Long term (current) use of antithrombotics/antiplatelets; Z86.73 Personal history of transient ischemic attack (TIA), and cerebral infarction without residual deficits; Z90.89 Acquired absence of other organs
CPT/HCPCS: 64493; 64494; 64495; J2250; J1030; J3010; 99152

== ENCOUNTER 2019-05-30 06:20 | Day surgery (SDC) | payer MEDICARE, OTHER ==
[2019-05-28 13:05] VITALS: BMI 27.1
[2019-05-30 07:10] LABS: Glucose,Whole Blood 129 mg/dL (75-99)
[2019-05-30 07:13] VITALS: RESP 16; TEMP 97.8
[2019-05-30] MEDS ORDERED: LIDOCAINE 1% 20 ML VIAL (10MG/ML) FOR IV START INTRADERMA ONE (07:13)
[2019-05-30] MEDS ORDERED: IV FLUID CONTINUATION 700 ML IV ONE (08:04)
[2019-05-30] MEDS ORDERED: LACTATED RINGERS 1,000 ML IV SCH (08:15)
--- NOTE | 2019-05-30 08:17 | P.PCN ---
Date of Procedure: 05/30/19 Procedure(s) Performed: PREOPERATIVE DIAGNOSIS : Lumbar spondylosis with Facet Arthropathy without myelopathy POSTOPERATIVE DIAGNOSIS: same PROCEDURE: Second Diagnostic lumbar medial branch block with fluoroscopy at L2, L3, L4, L5 [bilateral] which covers facets L3-4, L4-5 and L5-S1 ANESTHESIA: Local anesthetic; moderate IV sedation with Versed 1 mg, sedation time 13 minutes Fluoroscopy was used for the procedure and images were saved in the radiology portion of the chart. Surgeon: Carlos Bashir MD PROCEDURE INDICATION: Lumbar back pain without radiculopathy, not responsive to conservative management. PROCEDURE DESCRIPTION: the patient was seen and identified in the preop holding area , risks and benefits and possible complications of the procedure and alternatives were discussed with the patient, and the patient agreed to proceed with the procedure and signed the consent . IV was started , vital signs were monitored during the procedure and fluoroscopy was used to maximize the benefit and accuracy of the needle placement, and sedation was given to decrease patient anxiety. Patient was taken to the procedure room and placed in prone position. The lumbar region was prepped using chlorhexidineX-2. Under strict sterile technique using AP fluoroscopy the bilateral sacral ala were identified and using ipsilateral oblique fluoroscopy ,the junction of the transverse process and the superior articulating process of the L3, L4, L5 vertebra which corresponds to the fluoroscopy image of the eye of the William dog for the medial branches were identified. Subsequently, after local infiltration of skin with lidocaine 1% 0.2 mL at each level , a 25-gauge 3.5" Quincke-type needle was placed at the junction of the base of the transverse process and the superior articular process at the appropriate level as well as the sacral ala, and the needle was advanced until the periosteum contacted, needle placement confirmed with AP and oblique fluoroscopy, 0.2 mL of Isovue 200 per level was injected which revealed no vascular uptake and after negative aspiration, 0.5 mL of lidocaine 2% was injected at each level and the needle subsequently removed . At the end of the procedure and the needles were removed and a bandage applied after the skin was cleaned. The patient was taken to recovery room in stable condition and monitors in the recovery room for 20-30 minutes and discharged home in stable condition after discharge criteria met and patient will follow up in clinic in 2 weeks EBL: Minimal COMPLICATION: None.
[2019-05-30 08:23] VITALS: BP 139/83; PULSE 73
--- NOTE | 2019-05-30 09:43 | FL ---
EXAMINATION TYPE: FL guided pain mgmt statistic DATE OF EXAM: 05/30/2019 HISTORY: Flouroscopy time 6 seconds of fluoroscopy provided. IMPRESSION: 1. Fluoroscopy time.
== END 2019-05-30 08:36 | disposition home or self-care (01) ==
LOC: ORPAIN 06:20
PROVIDERS: ATTEND Anesthesiology
DX: M47.816 Spondylosis without myelopathy or radiculopathy, lumbar region (principal); M47.27 Other spondylosis with radiculopathy, lumbosacral region; M41.9 Scoliosis, unspecified; Z88.1 Allergy status to other antibiotic agents; Z88.2 Allergy status to sulfonamides; Z88.6 Allergy status to analgesic agent; Z88.8 Allergy status to other drugs, medicaments and biological substances
CPT/HCPCS: 64493; 64494; 64495; J2250; Q9966; 99152

== ENCOUNTER → 2019-06-12 | Outpatient (CLI) | payer MEDICARE, OTHER ==
[2019-06-12 14:23] VITALS: BP 143/84; PULSE 66; RESP 16
--- NOTE | 2019-06-14 13:14 | P.PAINPG ---
Subjective Progress Note Date: 06/12/19 Sheryl presents for follow-up visit. She has a history of low back pain and pain down her left leg to above her knee. She recently underwent bilateral lumbar medial branch blocks at L2, L3, L4, L5. She reports greater than 80% pain relief from these procedures. She would like to proceed with radiofrequency ablation. Her low back pain is rated as 5/10 today. Today, she is also complaining of left upper quadrant pain, rated as 8/10 that has been present for 20 years. She believes this started with a shingles episode about 20 years ago. She does recall a rash at the time. She would like us to address this pain as well. She has tried various creams for this pain, without resolution. The pain is primarily located just under her bra line on the left side of her chest, and occasionally in her thoracic paraspinal musculature. Medications include Percocet 10/325 4 times a day when necessary. Patient denies side effects from these medications, the medications are helping with her pain. She does keep medications locked up. She denies any bowel or bladder incontinence, any saddle anesthesia. In addition to above, 13-point review of systems is also negative for chest pain, shortness of breath, changes in vision, changes in hearing, new onset weakness, abdominal pain, diarrhea, extreme fatigue, malaise, fever, skin changes, homicidal or suicidal ideation, or bowel or bladder incontinence. Vital Signs: Reviewed in EMR Gen: WDWN, AAOx3, NAD HEENT: NCAT, EOMI, hearing grossly normal Pulm: resp unlabored Neck: trachea midline ROM in flexion lumbar spine: reduced secondary to pain ROM in extension lumbar spine: reduced secondary to pain Lumbar paravertebral tenderness: + + Facet loading: + +bilateral SI joint tenderness: No tenderness of SI joints Lower extremity: Motor and sensory Grossly intact, uses a walker for ambulation Thoracic spine: Tenderness to palpation of left thoracic paraspinal musculature. No visible rash along left chest or back. Sensitive to light touch primarily in the T67 distribution Imaging: MRI lumbar spine: 04/29/19 1. Diffuse facet arthropathy noted from L1 to S1. Worse at L4-L5 and L5-S1. 2. At L3-L4 there is a posterior broad-based disc bulge causing anterior mass effect on thecal sac. There is circumferential extension endplate this complex which contributes with the scoliosis to cause some foraminal encroachment on the left. 3. L4-L5 is facet arthropathy with ligamentum flavum hypertrophy which causes some posterior lateral mass effect on the thecal sac greater on the right. There is foraminal narrowing on the right greater than left. No central canal stenosis 4. At L5-S1 there is small posterior disc bulge which causes slight anterior mass effect on thecal sac. There is foraminal stenosis on the right. Also facet arthropathy present on the right Assessment: 1. Lumbar spondylosis 2. Lumbar radiculopathy at Left L3-L4 3. Scoliosis 4. Postherpetic neuralgia in the T6-7 distribution Plan: 1. Explanation: Opioid and psychological risk scores were reviewed. Diagnoses, prognoses, and multiple treatment options including but not limited to physical therapy, interventional therapies, adjuvant medical therapies, narcotic medication therapies, and surgery were discussed with the patient and all questions were answered to the patient's satisfaction. 2. Opioid agreement: Opioid agreement was signed and placed in the chart. A start talking form was placed in the chart. 3. Counseling: The patient was counseled on standing active. Specifically, the patient was instructed regarding the importance of exercise in the context of both chronic pain and overall health. 4. Procedures: Lumbar radiofrequency ablation at L2, L3, L4, L5, we will start with the left side 5. Consultations: None 6. Investigations: MRI thoracic spine ordered today. Provided no deformities, patient may benefit from T67 transforaminal epidural steroid injection on the left side to treat postherpetic neuralgia. 7. Medications: Percocet 10 mg/325 mg 4 times a day when necessary 30 days. 120 tablets prescribed. with one refill. Prescription given for lidocaine 5% patch to apply to thoracic region. 8. Disposition: For above-mentioned procedure PQRS measures: 1-Patient's medications are documented in the chart. 2-Tobacco use is negative, counseling not given 3-Patient has not had a pneumococcal vaccine. 4-Advanced care planning discussed, patient unable to give. 5-Opioid contract signed with the patient. 6-Pain positive, follow-up visit or procedure scheduled 7-Patient's blood pressure measured and documented, and elevated, she will follow-up with PCP 8-Patient's weight was measured, and body mass index within the normal limits 9-Patient WAS NOT identified as an unhealthy alcohol user. Objective - Vital Signs Vital signs: Vital Signs Temp Pulse 66 06/12/19 14:11 Resp 16 06/12/19 14:11 BP 143/84 06/12/19 14:11 Pulse Ox 94 L 06/12/19 14:11 PQRS Measure Charge Sheet PQRS Narrative: Smoking Status Former smoker Narcotic Agreement Date Signed 04/17/19 Blood Pressure 143/84 Pain Intensity [Left Upper 8 Abdomen] Pain Intensity [Lower Back] 5 Scale Used Numeric (1 - 10) Hx Alcohol Use (MH) No Home Medications: Ambulatory Orders DULoxetine HCL [Cymbalta] 120 mg PO DAILY 11/30/18 Furosemide [Lasix] 20 mg PO DAILY 11/30/18 Insulin Detemir [Levemir Flextouch] 18 units SQ HS 11/30/18 Lisinopril [Zestril] 40 mg PO DAILY 11/30/18 amLODIPine [Norvasc] 5 mg PO DAILY 11/30/18 metFORMIN HCL [Glucophage] 1,000 mg PO BID 11/30/18 oxyCODONE-APAP 10-325MG [Percocet 10-325 mg] 1 tab PO QID PRN 11/30/18 tiZANidine [Zanaflex] 4 mg PO TID PRN 11/30/18 Albuterol Sulfate [Proair Hfa] 1 - 2 puff INHALATION Q4HR PRN 03/16/19 INSULIN ASPART (NovoLOG) [NovoLOG (formulary)] See Protocol SQ TID-W/MEALS 03/16/19 Ranitidine HCl [Zantac] 150 mg PO HS 03/16/19 Atorvastatin [Lipitor] 80 mg PO HS 04/11/19 Omeprazole [PriLOSEC] 20 mg PO AC-BID 04/11/19 Potassium Chloride 10 meq PO BID 04/11/19 Pregabalin [Lyrica] 300 mg PO BID 04/11/19 Varenicline [Chantix Continuing Pack] 1 mg PO BID 04/11/19 Aspirin [Adult Low Dose Aspirin EC] 81 mg PO DAILY 04/30/19 Brimonidine Tartrate [Alphagan P 0.2% Ophth Soln] 1 drops LEFT EYE BID 05/06/19 Metoprolol Tartrate [Lopressor] 25 mg PO BID 11/14/19 Controlled Substance Measures - Controlled Substance Measures Is patient prescribed a controlled substance at discharge?: Yes When asked, does pt state using other controlled substances?: No If prescribed controlled substance>3 days was MAPS reviewed?: Yes If Rx opioid, was Start Talking consent form obtained?: Yes If opioid is for acute pain is fill amount 7 days or less?: No Was information provided regarding opioid addiction?: Yes
== END | disposition home or self-care (01) ==
LOC: PNWHC3 13:40
PROVIDERS: ATTEND Anesthesiology
DX: G89.29 Other chronic pain (principal); M47.26 Other spondylosis with radiculopathy, lumbar region; M41.86 Other forms of scoliosis, lumbar region; B02.29 Other postherpetic nervous system involvement; R10.12 Left upper quadrant pain; B02.9 Zoster without complications; Z87.891 Personal history of nicotine dependence; Z79.84 Long term (current) use of oral hypoglycemic drugs; Z79.4 Long term (current) use of insulin; Z79.1 Long term (current) use of non-steroidal anti-inflammatories (NSAID); Z79.82 Long term (current) use of aspirin; Z79.899 Other long term (current) drug therapy; Z98.890 Other specified postprocedural states
CPT/HCPCS: 99211

== ENCOUNTER 2019-06-24 07:20 | Day surgery (SDC) | payer MEDICARE, OTHER ==
[2019-06-21 11:36] VITALS: BMI 26.5
[2019-06-24 07:37] VITALS: TEMP 97.8
[2019-06-24 07:45] LABS: Glucose,Whole Blood 141 mg/dL (75-99)
[2019-06-24] MEDS ORDERED: LACTATED RINGERS 1,000 ML IV ONE (07:46)
[2019-06-24] MEDS ORDERED: LIDOCAINE 1% 20 ML VIAL (10MG/ML) FOR IV START INTRADERMA ONE (08:34)
--- NOTE | 2019-06-24 08:51 | P.PCN ---
Date of Procedure: 06/24/19 Procedure(s) Performed: PREOPERATIVE DIAGNOSIS: Lumbar Spondylosis POSTOPERATIVE DIAGNOSIS: Same PROCEDURES: Radiofrequency ablation of the L2, L3, L4, L5 medial branches with fluoroscopic guidance on the left side SURGEON: Carlos Bashir MD. ANESTHESIA: Lidocaine 1% 5 mL, Moderate sedation with intravenous Versed and fentanyl, sedation time 22 minutes EBL: Minimal Fluoroscopy was used for the procedure and images were saved in the radiology portion of the chart. PROCEDURE INDICATION: The patient with low back pain secondary to lumbar facet arthropathy who had more than 50% relief of pain with previous diagnostic lumbar medial branch block X2. PROCEDURE DESCRIPTION / TECHNIQUE: The patient was seen and identified in the preoperative area. Risks, benefits, complications, including but not limited to risk of infection ,bleeding , allergic reactions to the medications and incomplete pain relief , and alternatives were discussed with the patient, the patient agreed to proceed with the procedure and signed the consent. IV was started. The operative site was marked. Patient was taken to the OR and time out was completed. The patient was placed in the prone position on the procedure table. The lumbar area was prepped and draped in the usual sterile fashion. . Vital signs were closely monitored during the procedure .IV sedation was used during the procedure to decrease patients anxiety. Using AP and then oblique fluoroscopy, the "eye of the William dog" corresponding to the connection between the superior and transverse articular processes of the L3, L4 and L5 as well as the sacral ala were identified, marked, and localized with 1% lidocaine. Subsequently, an 18 guage 100 MM radiofrequency cannula with a 10-mm active tip was advanced guided by fluoroscopy to the identified target at each site. Needle positioning was confirmed on AP, oblique and lateral fluoroscopy. Motor testing at 2.5 Hz was done with paraspinal muscle stimulation only, and no radicular symptoms down the legs. Then 1 mL of 4% lidocaine was injected in each site. Radiofrequency thermocoagulation at 80 degrees celsius for 90 seconds was then performed. [place] were removed. Sterile dressings were applied. COMPLICATIONS: No acute complications. Comments: When we had 5 seconds left of the RFA, patient said she felt some pain in left knee. DISPOSITION / PLANS: The patient was placed in a supine position and transferred to the recovery area in a stable condition for observation and was discharged from the recovery room after meeting discharge criteria. Home discharge instructions given to the patient by the staff. The patient will follow up for right-sided procedure in 2 weeks.
[2019-06-24] MEDS ORDERED: IV FLUID CONTINUATION 1,000 ML IV ONE (08:57)
[2019-06-24 09:14] VITALS: BP 125/84; PULSE 64; RESP 17
--- NOTE | 2019-06-24 09:23 | FL ---
EXAMINATION TYPE: FL guided pain mgmt statistic DATE OF EXAM: 06/24/2019 HISTORY: Flouroscopy time 6 seconds of fluoroscopy provided. IMPRESSION: 1. Fluoroscopy time.
== END 2019-06-24 09:30 | disposition home or self-care (01) ==
LOC: ORPAIN 07:20
PROVIDERS: ATTEND Anesthesiology
DX: M47.26 Other spondylosis with radiculopathy, lumbar region (principal); M41.9 Scoliosis, unspecified; B02.29 Other postherpetic nervous system involvement; Z87.891 Personal history of nicotine dependence; Z79.4 Long term (current) use of insulin; Z79.82 Long term (current) use of aspirin; Z79.899 Other long term (current) drug therapy; Z88.2 Allergy status to sulfonamides; Z88.5 Allergy status to narcotic agent; Z88.6 Allergy status to analgesic agent
CPT/HCPCS: 64635; 64636 ×2; J2250; J3010; 99152

== ENCOUNTER → 2019-06-28 | Outpatient (CLI) | payer MEDICARE, OTHER ==
--- NOTE | 2019-06-29 02:23 | MR ---
EXAMINATION TYPE: MR thoracic spine wo con DATE OF EXAM: 06/28/2019 COMPARISON: None HISTORY: Mid-back pain into ribs Multiplanar multiecho imaging of the thoracic spine was performed without contrast. Thoracic vertebra show a mild levoscoliosis. There is 25% anterior wedging of L1 vertebral body with decreased signal on the T1 images. The thoracic spinal cord has fairly normal signal pattern. There i s no edema. There is no thoracic spinal stenosis. There is no sign of a thoracic paraspinal mass. IMPRESSION: There is L1 compression fracture probably due to osteoporosis. This fracture is probably present on t he old chest x-ray of 01/10/2019. No evidence of an acute fracture of the thoracic spine. No spinal st enosis.
== END | disposition home or self-care (01) ==
LOC: RADMRIMAIN 16:36
PROVIDERS: ATTEND Anesthesiology
DX: M81.0 Age-related osteoporosis without current pathological fracture (principal)
CPT/HCPCS: 72146

== ENCOUNTER 2019-08-06 06:43 | Day surgery (SDC) | payer MEDICARE, OTHER ==
[2019-08-02 15:39] VITALS: BMI 26.9
[2019-08-06 07:20] VITALS: RESP 16; TEMP 97.4
[2019-08-06] MEDS ORDERED: LIDOCAINE 1% 20 ML VIAL (10MG/ML) FOR IV START INTRADERMA ONE (07:21)
[2019-08-06 07:30] LABS: Glucose,Whole Blood 149 mg/dL (75-99)
[2019-08-06] MEDS ORDERED: MIDAZOLAM 2 MG/2 ML VIAL ONE (07:58)
[2019-08-06] MEDS ORDERED: fentaNYL (PF) 50 MCG/ML 2 ML AMP ONE (07:58)
[2019-08-06] MEDS ORDERED: methylPREDNISolone ACETATE 40 MG/ML 1 ML VIAL ONE (07:58)
[2019-08-06] MEDS ORDERED: ROPIVACAINE 5MG/ML 20ML VIAL ONE (07:58)
--- NOTE | 2019-08-06 08:31 | P.PCN ---
Date of Procedure: 08/06/19 Procedure(s) Performed: PREOPERATIVE DIAGNOSIS: 1-Lumbar Spondylosis with Facet Arthropathy without myelopathy. 2- Lumber degenerative disc disease POSTOPERATIVE DIAGNOSIS: 1- Lumbar Spondylosis with Facet Arthropathy without myelopathy. 2- Lumber degenerative disc disease PROCEDURES : Right Radiofrequency thermocoagulation, L2 , L3 , L4 , and L5 medial branch, with fluoroscopic guidance (fluoroscopy images available in the radiology department) ( to denervate the facet joint at L3-4 , L4-5 ,and L5-S1 levels ) ANESTHESIA: Moderate sedation with intravenous versed 2 mg and fentaneyl 100 mcg, and local infiltration with Ropivacaine 0.5 % . EBL: Minimal PROCEDURE INDICATION: The patient with low back pain secondary to lumbar facet arthropathy who had more than 50% relief of her pain with previous diagnostic lumbar medial branch block with bupivacaine. PROCEDURE DESCRIPTION / TECHNIQUE: The patient was seen and identified in the preoperative area. Risks, benefits, complications, including but not limited to risk of infection ,bleeding , allergic reactions to the medications and no complete pain releife , and alternatives were discussed with the patient, the patient agreed to proceed with the procedure and signed the consent. IV was started. Vital signs remained stable throughout the procedure. Patient was taken to the OR and time out was completed. The patient was placed in the prone position on the procedure table. The lumber area was prepped and draped in the usual sterile fashion. . Vital signs were closely monitored during the procedure .IV sedation was used during the procedure to decrease patients anxiety. Using AP and then oblique fluoroscopy, the ``eye of the William dog corresponding to the connection between the superior and transverse articular processes of right L2 L3, L4, and L5 were identified, marked, and localized with 1% lidocaine. Subsequently, a 18 [id number] radiofrequency cannula with a 10-mm active tip was advanced guided by fluoroscopy to each of the``eyes of the William dog at right L2 , L3, L4, and L5. Each site then underwent sensory testing at 50 Hz and 0 to 1 volt and motor testing at 2.5 Hz and 0 to 3 volt with local stimulation, but no radicular symptoms down the legs. Thereafter the right L2 ,L3, L4 , and L5 sites underwent radiofrequency thermocoagulation at 80 degrees celsius for 90 seconds after injecting 0.5 ml of PF Ropivacaine 1ml, then after the thermocoagulation done , 1 ml of the block solution containing Depo-Medrol 40 mg and 3 ml of Ropivacaine 0.5% was injected at the right L2 , L3 , L4, and L5 levels after negative aspiration of CSF and blood and with no paresthesias. Cannulas were retracted while injecting lidocaine 1% until the needle is out. . At the end of the procedure, the skin was cleansed and bandages were applied. COMPLICATIONS: No acute complications. DISPOSITION / PLANS: The patient was placed in a supine position and transferred to the recovery area in a stable condition for observation and was discharged from the recovery room after meeting discharge criteria. Home discharge instructions given to the patient by the staff. The patient was reexamined prior to discharge. The patient will schedule a follow up in the clinic in 2-4 weeks.
[2019-08-06] MEDS ORDERED: IV FLUID CONTINUATION 500 ML IV ONE (08:34)
[2019-08-06 08:38] VITALS: PULSE 95
[2019-08-06 08:46] LABS: Glucose,Whole Blood 157 mg/dL (75-99)
--- NOTE | 2019-08-06 08:50 | FL ---
Fluoroscopy HISTORY: Pain 13 seconds fluoroscopy time supplied to the referring clinician. 3 intraoperative C-arm images docum ent the procedure. See dictated report from anesthesia.
[2019-08-06 08:52] VITALS: BP 122/78
== END 2019-08-06 09:05 | disposition home or self-care (01) ==
LOC: ORPAIN 06:43
PROVIDERS: ATTEND Specialist
DX: M47.816 Spondylosis without myelopathy or radiculopathy, lumbar region (principal); M51.36 Other intervertebral disc degeneration, lumbar region; E11.9 Type 2 diabetes mellitus without complications; Z88.2 Allergy status to sulfonamides; Z91.048 Other nonmedicinal substance allergy status; Z88.1 Allergy status to other antibiotic agents; Z79.82 Long term (current) use of aspirin
CPT/HCPCS: 64635; 64636 ×2; J2250; J1030; J3010; J2795; 99152; 99153

== ENCOUNTER → 2019-08-12 | Outpatient (CLI) | payer MEDICARE, OTHER ==
[2019-08-12 11:51] VITALS: BP 132/85; PULSE 89; RESP 16
--- NOTE | 2019-08-12 12:59 | P.PAINPG ---
Subjective Progress Note Date: 08/12/19 This is a follow-up visit for this 64 years old female with a chronic history of severe low back pain, with radiation to the buttock area, she is diagnosed with lumbar spondylosis and lumbar degenerative disc disease, status post radiofrequency thermocoagulation of the median branch lumbar area, patient co mplaining of severe localized pain in the right buttock area, is constant and increases with any activity, she denies any motor or sensory deficit she denies any fever or night sweats , he continues to use her pain medication regarding 300 mg twice a day and Percocet 10/325 every 6 hours and Zanaflex 4 mg twice a day, he denies any side effect of the medication she denies any excessive drowsiness or sleepiness and she reported the current medication helping her to control her pain Objective - Vital Signs Vital signs: Vital Signs Temp Pulse 89 08/12/19 11:43 Resp 16 08/12/19 11:43 BP 132/85 08/12/19 11:43 Pulse Ox 95 08/12/19 11:43 - Exam Physical Examinations : -Constitutiona : Cooperative , not in acute distress . -HEENT : nech : supple , no Lymphadenopathy , normal thyroid size . : eyes : no ptosis , no icterus, no photophobia . - neurologic : Cranial nerve II to XII intact , no focal neurological deffecit . -psychatric : alert , oriented X 3 , appropriate affect , intact judgment and insight . -Lymphatic : no Lymphadenopathy . - musculoskeltal : Lumber spine moter stegnth lower extremities ,thigh and legs 5/5 Right side , 5/5 Left side deep tendon reflexes : normal Knee Jerk , normal ankle Jerk lumber facet Loading Test = negative bilaterally Range of motion of the lumbar spine Flexion 30 degrees, extension 10 degrees strait leg raising test = negative Fabere test= negative Sever tenderness over the Sacroiliac joint on the Right . Gaenslen test= positive right ,and negative left . Seated flexion test= positive right ,and negative Left . Assessment and Plan Plan: Assessment and plan= chronic low back pain secondary to lumbar degenerative disc disease , lumbar spondylosis with lumbar facet arthropathy . Right sacroiliitis chronic and current use of high-risk medication (opioids) Patient denies any side effects of the current pain medication and the current treatment/medication helping the patient to do activity of daily living , Diagnoses, prognosis, treatment options, including but not limited to physical therapy, medication management, interventional therapies, and surgery, were discussed with the patient All the questions answered The narcotic consent was signed and patient agreed and understood the side effects and complications of opioid treatment. Patient signed the narcotic agreement, and was orally counseled, not to overuse, not to abuse, not to Divert , not tp sell pain medication, and to take it as prescribed only, Patient was counseled not to drive or operate heavy equipment while using narcotic medication, and advised not to use alcohol or any Illicit drugs while using the narcotis. understanding that lack of compliance with any of the above instructions, will likely to cause discharge from, the pain service, not to renew his narcotic prescriptions MAPS Reviwed and it was apropriate . Medication managements= patient will be given prescription refills for Percocet 10/325 every 6 hours dispense 120 with one refill, Lyrica 300 mg twice a day dispense 60 with 1 refill Zanaflex 4 mg every 12 hours dispense 60 with one refill, Patient had urine drug screen done in April of last year and it was appropriate. Next visit we'll try to decrease the pain medication or decrease the Percocet to every 8 hours , and can decrease Lyrica to 150 every 8 hours, Interventions= patient could benefit from right-sided sacroiliac joint steroid injections. , Time with Patient: Less than 30 PQRS Measure Charge Sheet Measure #130: Documentation of Current Meds in Medical Chart: Patient's medications documented in chart Measure #226: Tobacco Use: Screen & Cessation Intervention: Pt not a tobacco user Measure #111: Pneumonia Vaccination: Pneumococcal vaccine administered or previously received Measure #47: Advance Care Plan: Advance care planning discussed & documented, pt chose/unable to give Measure #412: Opioid Treatment Agreement: Documented signed opioid trtmnt agreemnt min once during opioid trtmnt Measure #408: Opioid Therapy Follow-up Evaluation: Patient had f/u eval minimum every 3 months during opioid therapy Measure #317: Preventitive Care & Scrn High Bld Press & F/U: Normal blood pressure, f/u not required Measure #128: Body Mass Index (BMI) Screening & Follow-up: BMI documented ABOVE normal parameters - f/u documented Measure #131: Pain Assessment & Follow-up: Pain positive & plan documented, Follow-up scheduled Measure #431: Unhealthy Alcohol Use Preventative Care & Scrn: Patient not identified as an unhealthy alcohol user PQRS Narrative: Smoking Status Former smoker Narcotic Agreement Date Signed 04/17/19 Blood Pressure 132/85 Pain Intensity [Medial Back] 5 Pain Intensity [Left Upper 7 Abdomen] Scale Used Numeric (1 - 10) Hx Alcohol Use (MH) No Home Medications: Ambulatory Orders DULoxetine HCL [Cymbalta] 120 mg PO DAILY 11/30/18 Furosemide [Lasix] 20 mg PO DAILY 11/30/18 Insulin Detemir [Levemir Flextouch] 18 units SQ HS 11/30/18 Lisinopril [Zestril] 40 mg PO DAILY 11/30/18 amLODIPine [Norvasc] 5 mg PO DAILY 11/30/18 metFORMIN HCL [Glucophage] 1,000 mg PO BID 11/30/18 oxyCODONE-APAP 10-325MG [Percocet 10-325 mg] 1 tab PO QID PRN 11/30/18 tiZANidine [Zanaflex] 4 mg PO TID PRN 11/30/18 Albuterol Sulfate [Proair Hfa] 1 - 2 puff INHALATION Q4HR PRN 03/16/19 INSULIN ASPART (NovoLOG) [NovoLOG (formulary)] See Protocol SQ TID-W/MEALS 03/16/19 Ranitidine HCl [Zantac] 150 mg PO HS 03/16/19 Atorvastatin [Lipitor] 80 mg PO HS 04/11/19 Omeprazole [PriLOSEC] 20 mg PO AC-BID 04/11/19 Potassium Chloride 10 meq PO BID 04/11/19 Pregabalin [Lyrica] 300 mg PO BID 04/11/19 Varenicline [Chantix Continuing Pack] 1 mg PO BID 04/11/19 Aspirin [Adult Low Dose Aspirin EC] 81 mg PO DAILY 04/30/19 Brimonidine Tartrate [Alphagan P 0.2% Oph Soln] 1 drops LEFT EYE BID 05/06/19 Metoprolol Tartrate [Lopressor] 25 mg PO BID 05/30/19 Controlled Substance Measures - Controlled Substance Measures Is patient prescribed a controlled substance at discharge?: Yes When asked, does pt state using other controlled substances?: No If prescribed controlled substance>3 days was MAPS reviewed?: Yes If Rx opioid, was Start Talking consent form obtained?: Yes If opioid is for acute pain is fill amount 7 days or less?: No Was information provided regarding opioid addiction?: Yes
== END | disposition home or self-care (01) ==
LOC: PNWHC3 11:16
PROVIDERS: ATTEND Specialist
DX: G89.29 Other chronic pain (principal); M51.36 Other intervertebral disc degeneration, lumbar region; M47.816 Spondylosis without myelopathy or radiculopathy, lumbar region; M46.96 Unspecified inflammatory spondylopathy, lumbar region; M46.1 Sacroiliitis, not elsewhere classified; Z79.891 Long term (current) use of opiate analgesic; Z87.891 Personal history of nicotine dependence; Z79.4 Long term (current) use of insulin; Z79.82 Long term (current) use of aspirin; Z79.899 Other long term (current) drug therapy
CPT/HCPCS: 99211

== ENCOUNTER → 2019-08-12 | Outpatient (CLI) | payer MEDICARE, OTHER ==
[2019-08-12 13:16] LABS: Anisocytosis Slight; Basophils # (A) 0.1 k/uL (0-0.2); Basophils % (A) 1 %; Eosinophils # (A) 0.2 k/uL (0-0.7); Eosinophils % (A) 2 %; HCT 35.7 % (34.0-46.0); HGB 10.4 gm/dL (11.4-16.0); Hypochromasia Marked; Lymphocytes # (A) 2.7 k/uL (1.0-4.8); Lymphocytes % (A) 28 %; MCH 20.3 pg (25.0-35.0); MCV 69.8 fL (80.0-100.0); Mean Platelet Volume 6.8; Microcytosis Marked; Monocytes # (A) 0.7 k/uL (0-1.0); Monocytes % (A) 7 %; Neutrophils # (A) 5.6 k/uL (1.3-7.7); Neutrophils % (A) 59 %; Platelet Count 384 k/uL (150-450); Poikilocytosis Slight; RBC 5.12 m/uL (3.80-5.40); RDW 17.6 % (11.5-15.5); WBC 9.5 k/uL (3.8-10.6)
[2019-08-12 18:33] LABS: African American GFR (CKD) 90.3 (60.0-200.0); Albumin 4.7 g/dL (3.80-4.90); Albumin/Globulin Ratio 2.14 (1.60-3.17); Anion Gap 8.4 mmol/L (4.00-12.00); BUN/Creat Ratio 18.75 Ratio (12.00-20.00); Calcium 9.4 mg/dL (8.7-10.3); Carbon Dioxide 27.6 mmol/L (21.6-31.8); Globulin 2.2 g/dL (1.6-3.3); Non-African American GFR(CKD) 77.9 (60.0-200.0); Potassium 4.8 mmol/L (3.5-5.5); Total Bilirubin 0.2 mg/dL (0.3-1.2); Total Protein 6.9 g/dL (6.2-8.2)
[2019-08-12 20:00] LABS: Hemoglobin A1C 7.3 % (4.0-6.0)
== END | disposition home or self-care (01) ==
LOC: LABWHC1 12:29
PROVIDERS: ATTEND Family Medicine
DX: E11.22 Type 2 diabetes mellitus with diabetic chronic kidney disease (principal); N18.3 Chronic kidney disease, stage 3 (moderate)
CPT/HCPCS: 36415; 80053; 83036; 85025

== ENCOUNTER → 2019-08-20 | Day surgery (SDC) | payer MEDICARE, OTHER ==
[2019-08-16 15:06] VITALS: BMI 26.5
[~2019-08-20] MED LIST changes: +BUPIVACAINE (PF) 0.5% 30 ML VIAL ONE; +LACTATED RINGERS 1,000 ML IV ONE; -LACTATED RINGERS 1,000 ML IV SCH; +LIDOCAINE 1% 20 ML VIAL (10MG/ML) FOR IV START INTRADERMA ONE; +MIDAZOLAM 2 MG/2 ML VIAL ONE; +fentaNYL (PF) 50 MCG/ML 2 ML AMP ONE; +methylPREDNISolone ACETATE 40 MG/ML 1 ML VIAL ONE
[2019-08-20 08:48] VITALS: TEMP 97.9
[2019-08-20 08:54] LABS: Glucose,Whole Blood 131 mg/dL (75-99)
--- NOTE | 2019-08-20 10:07 | P.PCN ---
Date of Procedure: 08/20/19 Surgeon: Nelson Jeffries Pathology: none sent Condition: stable Disposition: PACU Description of Procedure: Preoperative diagnoses= sacroiliac joint dysfunction and sacroiliitis on the Right side Postoperative diagnoses= same as preoperative diagnosis. Procedure= sacroiliac joint steroid injection under fluoroscopic guidance. Anesthesia= local anesthesia with lidocaine 1% and IV moderate conscious sedation with fentanyl and Versed.9:55-10:04 Estimated blood loss=minimal. Procedure indication= the patient had a history of severe chronic low back pain, diagnosed with sacroiliitis and lumbar sacral facet arthropathy unresponsive to conservative treatment. Procedure description= the patient was seen and identified in the preoperative holding area, risks and benefits and alternative of the procedure and possible complications discussed with the patient, patient signed the consent. an IV was started, and vital signs were monitored and were stable throughout the procedure, patient was placed in the prone position or table and the lumbosacral area was prepped and draped with a sterile fashion, vital signs were closely monitored during the procedure.The sacroiliac joint was identified on the AP view of fluoroscopy then the C-arm was tilted to the contralateral oblique position to superimpose the anterior and posterior joint lines on each other and to have a unified joint line with the target point at the inferior one third of this line. I used 22-gauge 3-1/2 inch Quincke spinal needle for this procedure and after getting into the sacroiliac joint I injected 40 mg of DepoMedrol+2 MLS of Ropivacaine 0.5%. Patient tolerated the procedure well without any complication, The patient returned to supine position after the back was cleaned and a Band- Aid applied, the patient transported to recovery room in stable condition and he was monitored for 30 minutes before he was discharged home and then patient was reexamined before going home and patient was discharged in stable condition and patient will follow up with the pain clinic in a few weeks
[2019-08-20 10:11] VITALS: RESP 17
[2019-08-20 10:14] LABS: Glucose,Whole Blood 107 mg/dL (75-99)
[2019-08-20 10:18] VITALS: BP 126/75; PULSE 80
--- NOTE | 2019-08-20 12:09 | FL ---
Fluoroscopy HISTORY: Pain 8 seconds fluoroscopy time supplied to the referring clinician. 1 intraoperative C-arm images docume nt the procedure. See dictated report from anesthesia.
== END ==
LOC: ORPAIN 08:15
PROVIDERS: ATTEND Anesthesiology
DX: G89.29 Other chronic pain (principal); M53.3 Sacrococcygeal disorders, not elsewhere classified; M46.1 Sacroiliitis, not elsewhere classified; M47.816 Spondylosis without myelopathy or radiculopathy, lumbar region; M51.36 Other intervertebral disc degeneration, lumbar region; I10 Essential (primary) hypertension; E11.9 Type 2 diabetes mellitus without complications; Z87.891 Personal history of nicotine dependence; Z79.891 Long term (current) use of opiate analgesic; Z79.4 Long term (current) use of insulin; Z79.899 Other long term (current) drug therapy; Z88.1 Allergy status to other antibiotic agents; Z88.2 Allergy status to sulfonamides
CPT/HCPCS: J2250; J1030; J3010; G0260; 27096

== ENCOUNTER → 2019-12-11 | Outpatient (CLI) | payer MEDICARE, OTHER ==
--- NOTE | 2019-12-11 12:57 | P.PAINPG ---
Subjective Progress Note Date: 12/11/19 THIS ENCOUNTER WAS PERFORMED A TELEMEDICINE VISIT VIA SECURE TWO-WAY VIDEO AND AUDIO TO MINIMIZE RISK AND TRANSMISSION OF COVID-19. This is a follow-up visit for this 64 year old female with a chronic history of severe low back pain, with radiation to the buttock area, she is diagnosed with lumbar spondylosis and lumbar degenerative disc disease, right SI joint dysfunction. She has been managed with a combination of medication management and interventional pain procedures. She underwent a right-sided SI joint injection on 08/20/2019 with good benefit for a few weeks. today, her pain is located in her low back and left side of her abdomen. Pain does not radiate into the lower extremities although she does endorse numbness and tingling in bilateral feet that she attributes to diabetic neuropathy. Pain is rated as 6/10, described as constant and sharp. She denies any aggravating factors, relieving factors include medications. She continues to walk for exercise. She did recently buy a cane to help with stability. she continues to use her pain medication lyrica 300 mg twice a day and Percocet 10/325 every 6 hours and Zanaflex 4 mg twice a day, she denies any side effect of the medication she denies any excessive drowsiness or sleepiness and she reported the current medication helping her to control her pain Review of systems is negative for chest pain, shortness of breath, new onset weakness, numbness/tingling, abdominal pain, malaise, fever, night sweats, chills, homicidal or suicidal ideation, or bladder incontinence.She did have one episode of bowel incontinence, and was unable to make it to the bathroom in time. She did have a sensation of fullness prior to this episode of incontinence. Objective Physical exam: Constitutional: Healthy appearing, well developed, alert, in no acute distress Psychiatric: Judgement and insight intact, alert and oriented Mood and Affect: mood normal, affect appropriate Head and Face: Inspection: normocephalic atraumatic, extraocular movement intact Respiratory: Breathing non-labored nondyspneic Skin: Head and Neck: skin with no lesions or rash Gait: able to ambulate without assistance Neurologic: sensation reduced in bilateral feet per patient. Assessment and Plan Plan: Assessment and plan= chronic low back pain secondary to lumbar degenerative disc disease , lumbar spondylosis with lumbar facet arthropathy . Right sacroiliitis chronic and current use of high-risk medication (opioids) Patient denies any side effects of the current pain medication and the current treatment/medication helping the patient to do activity of daily living , The narcotic consent was signed and is on file MAPS Reviewed and it was appropriate . Medication managements= patient will be given prescription refills for Percocet 10/325 every 6 hours dispense 120 with one refill, Lyrica 300 mg twice a day dispense 60 with 1 refill Zanaflex 4 mg every 12 hours dispense 60 with one refill, Patient had urine drug screen done in April of last year and it was appropriate. Next visit we'll try to decrease Percocet to every 8 hours, patient is amenable to this plan Interventions= none currently Follow up: in clinic in 2 months for medication management PQRS Measure Charge Sheet PQRS Narrative: Smoking Status Former smoker Narcotic Agreement Date Signed 04/17/19 Pain Intensity [Left Abdomen] 8 Pain Intensity [Back] 6 Hx Alcohol Use (MH) No Home Medications: Ambulatory Orders DULoxetine HCL [Cymbalta] 120 mg PO DAILY 11/30/18 Furosemide [Lasix] 20 mg PO DAILY 11/30/18 Insulin Detemir [Levemir Flextouch] 16 units SQ HS 11/30/18 Lisinopril [Zestril] 40 mg PO DAILY 11/30/18 amLODIPine [Norvasc] 5 mg PO DAILY 11/30/18 metFORMIN HCL [Glucophage] 1,000 mg PO BID 11/30/18 Albuterol Sulfate [Proair Hfa] 1 - 2 puff INHALATION Q4HR PRN 03/16/19 INSULIN ASPART (NovoLOG) [NovoLOG (formulary)] See Protocol SQ TID-W/MEALS 03/16/19 Ranitidine HCl [Zantac] 150 mg PO HS 03/16/19 Atorvastatin [Lipitor] 80 mg PO HS 04/11/19 Omeprazole [PriLOSEC] 20 mg PO AC-BID 04/11/19 Potassium Chloride 10 meq PO BID 04/11/19 Aspirin [Adult Low Dose Aspirin EC] 81 mg PO DAILY 04/30/19 Brimonidine Tartrate [Alphagan P 0.2% Ophth Soln] 1 drops LEFT EYE BID 05/06/19 Metoprolol Tartrate [Lopressor] 25 mg PO BID 05/30/19 Ferrous Sulfate [Feosol] 325 mg PO DAILY 10/03/19 tiZANidine [Zanaflex] 4 mg PO Q12HR PRN #60 tab 10/07/19 Pregabalin [Lyrica] 300 mg PO BID 30 Days #60 cap 10/21/19 oxyCODONE HCL/ACETAMINOPHEN [Percocet 10-325 mg] 1 tab PO Q6HR PRN 30 Days #120 tab 10/21/19 Controlled Substance Measures - Controlled Substance Measures Is patient prescribed a controlled substance at discharge?: Yes When asked, does pt state using other controlled substances?: No If prescribed controlled substance>3 days was MAPS reviewed?: Yes If Rx opioid, was Start Talking consent form obtained?: Yes If opioid is for acute pain is fill amount 7 days or less?: No Was information provided regarding opioid addiction?: Yes
== END | disposition home or self-care (01) ==
LOC: PNWHC3 07:20
PROVIDERS: ATTEND Anesthesiology
DX: Z53.9 Procedure and treatment not carried out, unspecified reason (principal)

== ENCOUNTER → 2019-12-16 | Outpatient (CLI) | payer MEDICARE, OTHER | END | disposition home or self-care (01) | LOC: LABWHC1 10:58 | PROVIDERS: ATTEND Internal Medicine | DX: Z11.59 Encounter for screening for other viral diseases (principal) ==

== ENCOUNTER 2019-12-19 06:59 | Day surgery (SDC) | payer MEDICARE, OTHER ==
[2019-12-17 11:46] VITALS: BMI 26.9
[~2019-12-19 06:59] MED LIST changes: -BUPIVACAINE (PF) 0.5% 30 ML VIAL ONE; -LACTATED RINGERS 1,000 ML IV ONE; +LACTATED RINGERS 1,000 ML IV SCH; -LIDOCAINE 1% 20 ML VIAL (10MG/ML) FOR IV START INTRADERMA ONE; -MIDAZOLAM 2 MG/2 ML VIAL ONE; -fentaNYL (PF) 50 MCG/ML 2 ML AMP ONE; -methylPREDNISolone ACETATE 40 MG/ML 1 ML VIAL ONE
[2019-12-19 07:20] VITALS: TEMP 97.9
[2019-12-19 07:21] LABS: Glucose,Whole Blood 136 mg/dL (75-99)
[2019-12-19] MEDS ORDERED: PROPOFOL 10 MG/ML 20 ML VIAL IV ONE (07:29)
--- NOTE | 2019-12-19 08:12 | P.PCN ---
Date of Procedure: 12/19/19 Description of Procedure: BRIEF HISTORY: Patient is a 64-year-old female presenting for outpatient evaluation with colonoscopy for anemia. Reports last colonoscopy 6 years ago significant for polypectomy. No change in bowel habits, abdominal pain, blood per rectum. No family history of colon cancer. PROCEDURE PERFORMED: Colonoscopy with polypectomy. PREOPERATIVE DIAGNOSIS: Anemia, last colonoscopy 7 years ago significant for polypectomy, personal history of polyps. ESTIMATED BLOOD LOSS: Minimal. IV sedation per Anesthesia. PROCEDURE: After informed consent was obtained, the patient, was brought into the endoscopy unit. IV sedation was administered by Anesthesia under continuous monitoring. Digital rectal examination was normal. Initially the Olympus CF-190 flexible video colonoscope was then inserted in the rectum, gradually advanced into the cecum without any difficulty. Careful examination was performed as the scope was gradually being withdrawn. Ileocecal valve and the appendiceal orifice were visualized and appeared normal. Prep was excellent. Mucosa of the cecum, ascending colon, transverse colon, descending colon, sigmoid colon, and rectum appeared normal. Diminutive 2 mm polyps removed from the cecum and ascending colon with cold forcep polypectomy. A diminutive 3 mm sigmoid colon polyps removed with cold forcep polypectomy.. Retroflexion was performed in the rectum and no lesions were seen, moderate grade internal hemorrhoids noted as well as external hemorrhoids on inspection prior to procedure. The patient tolerated the procedure well. IMPRESSION: 3 diminutive polyps removed with cold forceps from the cecum, ascending colon an d sigmoid colon. Internal and external hemorrhoids. RECOMMENDATIONS: Findings of this examination were discussed with the patient. Okay to resume diet. Okay to resume medications. Await pathology from polypectomy. Anticipate repeat colonoscopy in 5-7 years pending pathology from polypectomies.
[2019-12-19 08:22] VITALS: BP 114/75; PULSE 73; RESP 12
== END 2019-12-19 08:51 | disposition home or self-care (01) ==
LOC: ORWHC2ENDO 06:59
PROVIDERS: ATTEND Internal Medicine
DX: D12.0 Benign neoplasm of cecum (principal); D12.2 Benign neoplasm of ascending colon; K63.5 Polyp of colon; K64.4 Residual hemorrhoidal skin tags; K64.8 Other hemorrhoids; D64.9 Anemia, unspecified; I10 Essential (primary) hypertension; E78.5 Hyperlipidemia, unspecified; J44.9 Chronic obstructive pulmonary disease, unspecified; E11.9 Type 2 diabetes mellitus without complications; M10.9 Gout, unspecified; Z86.010 Personal history of colon polyps; Z88.2 Allergy status to sulfonamides; Z88.1 Allergy status to other antibiotic agents; Z88.6 Allergy status to analgesic agent; Z91.048 Other nonmedicinal substance allergy status; Z88.5 Allergy status to narcotic agent; Z86.73 Personal history of transient ischemic attack (TIA), and cerebral infarction without residual deficits; Z79.899 Other long term (current) drug therapy; Z79.82 Long term (current) use of aspirin; Z79.4 Long term (current) use of insulin; Z90.49 Acquired absence of other specified parts of digestive tract; Z90.89 Acquired absence of other organs; Z87.891 Personal history of nicotine dependence
CPT/HCPCS: 88305; 45380; J2704

== ENCOUNTER → 2020-02-05 | Outpatient (CLI) | payer MEDICARE, OTHER ==
[2020-02-05 09:14] VITALS: BP 162/91; PULSE 85; RESP 18
--- NOTE | 2020-02-05 09:40 | P.PAINPG ---
Subjective Progress Note Date: 02/05/20 This is a follow-up visit for this 64 year old female with a chronic history of severe low back pain, with radiation to the buttock area, she is diagnosed with lumbar spondylosis and lumbar degenerative disc disease, bilateral SI joint dysfunction. She has been managed with a combination of medication management and interventional pain procedures. She underwent a right-sided SI joint injection on 08/20/2019 with good benefit. today, her pain is located in her left low back and left side of her abdomen. Pain does not radiate into the lower extremities although she does endorse numbness and tingling in bilateral feet that she attributes to diabetic neuropathy. Pain is rated as 4/10, described as stabbing and sharp. Pain is worse with moving and walking, relieving factors include medications, and activity. she continues to use her pain medication lyrica 300 mg twice a day and Percocet 10/325 every 6 hours and Zanaflex 4 mg twice a day, she denies any side effect of the medication she denies any excessive drowsiness or sleepiness and she reported the current medication helping her to control her pain Review of systems is negative for chest pain, shortness of breath, new onset weakness, numbness/tingling, abdominal pain, malaise, fever, night sweats, chills, homicidal or suicidal ideation, or bladder incontinence.She did have one episode of bowel incontinence, and was unable to make it to the bathroom in time. She did have a sensation of fullness prior to this episode of incon tinence. Objective Physical exam: Vitals: Reviewed in EMR GENERAL: Well appearing, in no acute distress PSYCH: Mood and affect is appropriate. Awake, alert, and oriented SKIN: Skin color, texture, turgor normal, no rashes or lesions HEENT: Normocephalic, atraumatic. EOM intact CV: No pedal edema RESP: Respirations are unlabored, no audible wheezing GI: Abdomen non-distended MUSCULOSKELETAL: Bilateral lower extremity strength is normal and symmetric. No atrophy or tone abnormalities are noted. Lumbar spine: Straight leg raising in the sitting position is negative for radicular pain. No pain to palpation over the lumbar spine and paraspinous muscles. Buttocks: Tenderness to palpation over the left PSIS, left Rowan test positive, left sacral thrust positive, left Gainslin's test positive Extremities: Peripheral joint ROM is full and pain free without obvious instability or laxity in all four extremities. No edema or skin discolorations noted. Gait: Gait is normal NEUR: No loss of sensation is noted. Cranial nerves are grossly intact Assessment and Plan Plan: Assessment and plan= chronic low back pain secondary to lumbar degenerative disc disease , lumbar spondylosis with lumbar facet arthropathy . Bilateral sacroiliitis chronic and current use of high-risk medication (opioids) Patient denies any side effects of the current pain medication and the current treatment/medication helping the patient to do activity of daily living , The narcotic consent was signed and is on file MAPS Reviewed and it was appropriate . Urine drug screen sent today Medication managements= patient will be given prescription refills for Percocet 10/325 every 6 hours dispense 110, refill is for 100 tablets, patient is interested in weaning. We will plan on continuing to wean as tolerated. Prescription also given for Lyrica 300 mg twice a day dispense 60 with 1 refill Zanaflex 4 mg every 12 hours dispense 60 with one refill, Interventions= will schedule left sided SI joint injection Follow up: For above-mentioned procedure and in clinic in 2 months for medication management PQRS Measure Charge Sheet Measure #130: Documentation of Current Meds in Medical Chart: Patient's medications documented in chart Measure #226: Tobacco Use: Screen & Cessation Intervention: Pt screened for tobacco use AND intervention given Measure #111: Pneumonia Vaccination: Pneumococcal vaccine administered or previously received Measure #47: Advance Care Plan: Advance care planning discussed & documented, pt chose/unable to give Measure #412: Opioid Treatment Agreement: Documented signed opioid trtmnt agreemnt min once during opioid trtmnt Measure #408: Opioid Therapy Follow-up Evaluation: Patient had f/u eval minimum every 3 months during opioid therapy Measure #317: Preventitive Care & Scrn High Bld Press & F/U: Pre-hypertensive or hypertensive BP documented, pt will f/u with PCP Measure #128: Body Mass Index (BMI) Screening & Follow-up: BMI documented within normal parameters Measure #131: Pain Assessment & Follow-up: Pain positive & plan documented, Follow-up scheduled Measure #431: Unhealthy Alcohol Use Preventative Care & Scrn: Patient not identified as an unhealthy alcohol user PQRS Narrative: Smoking Status Former smoker Narcotic Agreement Date Signed 04/17/19 Pain Intensity [Medial Back] 8 Hx Alcohol Use (MH) No Home Medications: Ambulatory Orders DULoxetine HCL [Cymbalta] 120 mg PO DAILY 11/30/18 Furosemide [Lasix] 20 mg PO DAILY 11/30/18 Insulin Detemir [Levemir Flextouch] 16 units SQ HS 11/30/18 amLODIPine [Norvasc] 5 mg PO DAILY 11/30/18 lisinopriL [Zestril] 40 mg PO DAILY 11/30/18 metFORMIN HCL [Glucophage] 1,000 mg PO BID 11/30/18 Albuterol Sulfate [Proair Hfa] 1 - 2 puff INHALATION QID PRN 03/16/19 Atorvastatin [Lipitor] 80 mg PO HS 04/11/19 Omeprazole [PriLOSEC] 20 mg PO AC-BID 04/11/19 Potassium Chloride 10 meq PO BID 04/11/19 Aspirin [Adult Low Dose Aspirin EC] 81 mg PO DAILY 04/30/19 Brimonidine Tartrate [Alphagan P 0.2% Ophth Soln] 1 drops LEFT EYE BID 05/06/19 Metoprolol Tartrate [Lopressor] 25 mg PO BID 05/30/19 Ferrous Sulfate [Feosol] 325 mg PO DAILY 10/03/19 Ibuprofen [Motrin Ib] 200 mg PO Q8H PRN 12/17/19 Ergocalciferol [Vitamin D2] 50,000 unit PO Q7D 01/29/20 Pregabalin [Lyrica] 300 mg PO BID 30 Days #60 cap 02/05/20 oxyCODONE-APAP 10-325MG [Percocet 10-325 mg] 1 tab PO Q6HR PRN 30 Days #100 tab 02/05/20 oxyCODONE-APAP 10-325MG [Percocet 10-325 mg] 1 tab PO Q6HR PRN 30 Days #110 tab 02/05/20 tiZANidine [Zanaflex] 4 mg PO Q8HR PRN #90 tab 02/05/20 Controlled Substance Measures - Controlled Substance Measures Is patient prescribed a controlled substance at discharge?: Yes When asked, does pt state using other controlled substances?: No If prescribed controlled substance>3 days was MAPS reviewed?: Yes If Rx opioid, was Start Talking consent form obtained?: Yes If opioid is for acute pain is fill amount 7 days or less?: No Was information provided regarding opioid addiction?: Yes
== END | disposition home or self-care (01) ==
LOC: PNWHC3 08:56
PROVIDERS: ATTEND Anesthesiology
DX: G89.29 Other chronic pain (principal); M51.36 Other intervertebral disc degeneration, lumbar region; M47.816 Spondylosis without myelopathy or radiculopathy, lumbar region; M46.1 Sacroiliitis, not elsewhere classified; M53.3 Sacrococcygeal disorders, not elsewhere classified; Z87.891 Personal history of nicotine dependence; Z79.4 Long term (current) use of insulin; Z79.84 Long term (current) use of oral hypoglycemic drugs; Z79.82 Long term (current) use of aspirin; Z79.899 Other long term (current) drug therapy
CPT/HCPCS: 80307; G0482; G0463; 99211

== ENCOUNTER → 2020-03-10 | Day surgery (SDC) | payer MEDICARE, OTHER ==
[2020-02-14 08:40] VITALS: BMI 26.5
[~2020-03-10] MED LIST changes: +IV FLUID CONTINUATION 1,000 ML IV ONE; +LACTATED RINGERS 1,000 ML IV ONE; +LIDOCAINE 1% (10MG/ML) FOR IV START INTRADERMA ONE; +MIDAZOLAM 2 MG/2 ML VIAL ONE; +ROPIVACAINE 5MG/ML 20ML VIAL ONE; +fentaNYL (PF) 50 MCG/ML 2 ML AMP ONE; +methylPREDNISolone ACETATE 40 MG/ML 1 ML VIAL ONE
[2020-03-10 10:02] VITALS: TEMP 98.6
--- NOTE | 2020-03-10 10:13 | P.PCN ---
Date of Procedure: 03/10/20 Procedure(s) Performed: Procedure= Left sacroiliac joints steroid injection under fluoroscopy guidance (fluoroscopy image stored on file in the radiology Department ) Preoperative diagnosis= 1-sacroiliitis 2-lumbar degenerative disc disease 3- lumbar spondylosis with facet arthropathy Postoperative diagnosis=Same as preop Diagnosis . Complication = none Condition= stable Anesthesia= moderate sedation with intravenous Versed 1 mg , and fentanyl 50 micrograms . Indication for the procedure= patient complaining of low back pain , examination was positive for severe tenderness over the sacroiliac joints bilaterally and patient diagnosed with sacroiliitis, for this reason she was good candidate for sacroiliac joint steroid injection. Description of the procedure= procedure risk and benefits discussed with the patient, including but not limited, risk of infection and bleeding, and ALLERGIC reaction to the medication and not complete pain relief and patient agreed with the preceding patient taken to the operating room, placed in prone position or standard monitors applied to the patient then after induction of anesthesia back prepped with chlorhexidine 3 times ,. Then the left sacroiliac joint steroid injection done under strict sterile technique local infiltration of the skin and subcu interstitial at the location of the left sacroiliac joint then a 22-gauge Quincke Needle advanced slowly under fluoroscopy time placed in the left sacroiliac joint, needle placement confirmed with AP and oblique and lateral view then after appropriate needle placement confirmed and after negative aspiration 0.5% Marcaine 3 mL and 40 mg of Depo-Medrol injected in the left sacroiliac joint after negative aspiration patient tolerated the procedure well that any complications and she will follow up in clinic 3 weeks
[2020-03-10 10:23] LABS: Glucose,Whole Blood 105 mg/dL (75-99)
[2020-03-10 10:25] VITALS: RESP 18
[2020-03-10 10:40] VITALS: BP 137/88; PULSE 78
--- NOTE | 2020-03-10 12:01 | FL ---
EXAMINATION TYPE: FL guided pain mgmt statistic DATE OF EXAM: 03/10/2020 CLINICAL HISTORY: Left sacroiliac joint pain. TECHNIQUE: Fluoroscopy. COMPARISON: None. FINDINGS: Fluoroscopic guidance was provided during pain relief procedure performed by Dr. Pedraza . A total of 4 seconds of fluoroscopic time was utilized during the procedure and 0 spot images are saved to PACS. IMPRESSION: As Above.
[2020-03-13 07:49] LABS: Glucose,Whole Blood 120 mg/dL (75-99)
== END ==
LOC: ORPAIN 02-20 09:26
PROVIDERS: ATTEND Specialist
DX: M46.1 Sacroiliitis, not elsewhere classified (principal); M53.3 Sacrococcygeal disorders, not elsewhere classified; M51.36 Other intervertebral disc degeneration, lumbar region; M47.816 Spondylosis without myelopathy or radiculopathy, lumbar region; E11.9 Type 2 diabetes mellitus without complications; Z88.1 Allergy status to other antibiotic agents; Z88.2 Allergy status to sulfonamides; Z88.5 Allergy status to narcotic agent; Z88.6 Allergy status to analgesic agent; Z88.8 Allergy status to other drugs, medicaments and biological substances; Z78.0 Asymptomatic menopausal state
CPT/HCPCS: J2250; J1030; J3010; J2795; G0260; 27096

== ENCOUNTER → 2020-04-01 | Outpatient (CLI) | payer MEDICARE, OTHER ==
[2020-04-01 09:18] VITALS: BP 154/101; PULSE 99; RESP 18; TEMP 98.3
--- NOTE | 2020-04-01 09:58 | P.PN ---
Subjective Progress Note Date: 04/01/20 This is a 65-year-old lady with history of chronic lower back pain and mid back pain with radiation to the anterior chest on the left side. The patient's midthoracic pain is more intense than her lower back pain. The pain has been there for about 20 years as she states. Her last thoracic spine MRI which was done about 9 months ago showed L1 compression fracture and mild levoscoliosis. The patient is a heavy smoker. She failed to respond to previous injection of the thoracic spine as she states. She takes Percocet 10 mg 3-4 times a day plus Zanaflex and Lyrica. Patient denies new-onset weakness, bowel/bladder incontinence, or any other signs or symptoms of cauda equina syndrome. There are no signs of acute intoxication, and no indications of medication diversion or overuse. In addition to above, 13-point review of systems is also negative for chest pain, shortness of breath, changes in vision, changes in hearing, new onset weakness, abdominal pain, diarrhea, extreme fatigue, malaise, fever, skin changes, homicidal or suicidal ideation, or bowel or bladder incontinence. Vital Signs: Reviewed in EMR Gen: AAOx3, NAD HEENT: PERRLA,hearing grossly normal Pulm: resp unlabored Neck: supple, trachea midline Positive tenderness in the thoracic paravertebral musculature on the left side. Normal strength in the lower extremities. Neuro: CN II-XII grossly intact, Imaging: Reviewed in EMR/chart Thoracic spine MRI which was done in June 2019 showed L1 compression fracture and mild levoscoliosis Assessment: old L1 compression fracture Lumbar spondylosis without myelopathy Lumbar DDD Tobacco dependence Opioid dependence Plan: 1. Explanation: Opioid and psychological risk scores were reviewed. Diagnoses, prognoses, and multiple treatment options including but not limited to physical therapy, interventional therapies, adjuvant medical therapies, narcotic medication therapies, and surgery were discussed with the patient and all questions were answered to the patient's satisfaction. 2. Opioid agreement: Signed with the patient and the patient is warned not to use opioids while driving or before driving and not to combine opioids with benzodiazepines or alcohol. 3. Counseling: The patient was counseled extensively on SMOKING CESSATION, BODY MASS INDEX, EXERCISE. Specifically, the patient was instructed regarding the importance of smoking cessation, obesity, and exercise in the context of both chronic pain and overall health. 4. Procedures: None for now 5. Consultations: None 6. Investigations: None 7. Medications: We'll go down on the Percocet dose from 10-7.5 mg 3 times a day. Continue Lyrica 300 mg twice a day and Zanaflex 4 mg 3 times a day. 8. Disposition: Return to clinic in 4 weeks 9. Maps were reviewed and were appropriate. P Controlled Substance Measures Is patient prescribed a controlled substance at discharge?: Yes When asked, does pt state using other controlled substances?: No If prescribed controlled substance>3 days was MAPS reviewed?: Yes If Rx opioid, was Start Talking consent form obtained?: Yes If opioid is for acute pain is fill amount 7 days or less?: No Was information provided regarding opioid addiction?: Yes Objective - Vital Signs Vital signs: Vital Signs Temp 98.3 F 04/01/20 09:14 Pulse 99 04/01/20 09:14 Resp 18 04/01/20 09:14 BP 154/101 04/01/20 09:14 Pulse Ox
== END | disposition home or self-care (01) ==
LOC: PNWHC3 09:03
PROVIDERS: ATTEND Anesthesiology
DX: M47.816 Spondylosis without myelopathy or radiculopathy, lumbar region (principal); M51.36 Other intervertebral disc degeneration, lumbar region; F11.20 Opioid dependence, uncomplicated; F17.200 Nicotine dependence, unspecified, uncomplicated; Z87.81 Personal history of (healed) traumatic fracture; Z79.899 Other long term (current) drug therapy
CPT/HCPCS: 99211

== ENCOUNTER → 2020-04-29 | Outpatient (CLI) | payer MEDICARE, OTHER ==
[2020-04-29 09:08] VITALS: BP 165/96; PULSE 89; RESP 18; TEMP 98.2
--- NOTE | 2020-04-29 09:29 | P.PN ---
Subjective Progress Note Date: 04/29/20 this is a 65-year-old lady with history of chronic lower back and midthoracic pain. The patient would like us tofocus on her thoracic pain at this point. This pain goes on the left side from her mid thoracic area to the anterior mid clavicular line with no tingling or numbness in this area. Her pain does not get worse with deep inspiration. The patient is a heavy smoker however she is trying to quit at this point. She denies any unusual coughing at this point. Her last MRI which was done about one year ago showed a compression fracture of L1 vertebra. The patient denies any weight loss however she does have a daily nocturnal pain in the thoracic area. Patient denies new-onset weakness, bowel/bladder incontinence, or any other signs or symptoms of cauda equina syndrome. There are no signs of acute intoxication, and no indications of medication diversion or overuse. In addition to above, 13-point review of systems is also negative for chest pain, shortness of breath, changes in vision, changes in hearing, new onset weakness, abdominal pain, diarrhea, extreme fatigue, malaise, fever, skin changes, homicidal or suicidal ideation, or bowel or bladder incontinence. Vital Signs: Reviewed in EMR Gen: AAOx3, NAD HEENT: PERRLA,hearing grossly normal Pulm: resp unlabored Neck: supple, trachea midline Positive tenderness in the thoracic paravertebral musculature on the left side. Normal strength in the lower extremities. Neuro: CN II-XII grossly intact, Imaging: Reviewed in EMR/chart Thoracic spine MRI which was done in June 2019 showed L1 compression fracture and mild levoscoliosis Assessment: old L1 compression fracture thoracic spondylosis without myelopathy Thoracic radicular pain Myofascial pain in the thoracic paravertebral musculature Lumbar spondylosis without myelopathy Lumbar DDD Tobacco dependence Opioid dependence Plan: 1. Explanation: Opioid and psychological risk scores were reviewed. Diagnoses, prognoses, and multiple treatment options including but not limited to physical therapy, interventional therapies, adjuvant medical therapies, narcotic medication therapies, and surgery were discussed with the patient and all questions were answered to the patient's satisfaction. 2. Opioid agreement: Signed with the patient and the patient is warned not to use opioids while driving or before driving and not to combine opioids with benzodiazepines or alcohol. 3. Counseling: The patient was counseled extensively on SMOKING CESSATION, BODY MASS INDEX, EXERCISE. Specifically, the patient was instructed regarding the importance of smoking cessation, obesity, and exercise in the context of both chronic pain and overall health. 4. Procedures: schedule for trigger point injection in the left thoracic paravertebral musculature 5. Consultations: None 6. Investigations: if the patient continues throughout this pain then we might need to do a computed tomography scan of the thoracic spine.the patient's nocturnal pain is concerning to me despite no history of weight loss. 7. Medications: We'll go down on the Percocet dose from 10-7.5 mg 3 times a day. Continue Lyrica 300 mg twice a day and Zanaflex 4 mg 3 times a day. 8. Disposition: Return to clinic in 8 weeks and to the above-mentioned procedure as soon as possible 9. Maps were reviewed and were appropriate. Controlled Substance Measures Is patient prescribed a controlled substance at discharge?: Yes When asked, does pt state using other controlled substances?: No If prescribed controlled substance>3 days was MAPS reviewed?: Yes If Rx opioid, was Start Talking consent form obtained?: Yes If opioid is for acute pain is fill amount 7 days or less?: No Was information provided regarding opioid addiction?: Yes Objective - Vital Signs Vital signs: Vital Signs Temp 98.2 F 04/29/20 09:00 Pulse 89 04/29/20 09:00 Resp 18 04/29/20 09:00 BP 165/96 04/29/20 09:00 Pulse Ox Intake & Output 04/28/20 04/29/20 04/29/20 18:59 06:59 18:59 Weight 65.771 kg
== END | disposition home or self-care (01) ==
LOC: PNWHC3 08:54
PROVIDERS: ATTEND Anesthesiology
DX: M51.36 Other intervertebral disc degeneration, lumbar region (principal); M47.814 Spondylosis without myelopathy or radiculopathy, thoracic region; M47.816 Spondylosis without myelopathy or radiculopathy, lumbar region; M84.48XD Pathological fracture, other site, subsequent encounter for fracture with routine healing; M79.18 Myalgia, other site; F11.20 Opioid dependence, uncomplicated; F17.200 Nicotine dependence, unspecified, uncomplicated
CPT/HCPCS: 99211

== ENCOUNTER → 2020-05-12 | Day surgery (SDC) | payer MEDICARE, OTHER ==
[2020-05-11 13:06] VITALS: BMI 26.5
[~2020-05-12] MED LIST changes: -IV FLUID CONTINUATION 1,000 ML IV ONE; -LACTATED RINGERS 1,000 ML IV ONE; -LIDOCAINE 1% (10MG/ML) FOR IV START INTRADERMA ONE; -MIDAZOLAM 2 MG/2 ML VIAL ONE; -fentaNYL (PF) 50 MCG/ML 2 ML AMP ONE
[2020-05-12 08:15] VITALS: RESP 16; TEMP 97.4
[2020-05-12 08:15] LABS: Glucose,Whole Blood 117 mg/dL (75-99)
--- NOTE | 2020-05-12 08:26 | P.PCN ---
Date of Procedure: 05/12/20 Description of Procedure: PROCEDURE 1. Left thoracic paravertebral trigger point injection PREOPERATIVE DIAGNOSIS: Myofascial pain syndrome POSTOPERATIVE DIAGNOSIS: Same Imaging: None ANESTHESIA: None PROCEDURE DESCRIPTION / TECHNIQUE: The patient was seen and identified in the preoperative area. Risks, benefits, and alternatives were discused with the patient and the patient has consented to the procedure. Risks of the procedure include potential for bleeding, infection, nerve damage, and incomplete pain relief were discussed with the patient. All questions were answered for the patient Patient was taken to the OR and time out was completed. The patient was taken to the procedure room and was set up on the side of the bed. chlorhexidine was used to cleanse the left paravertebral area. At that time the painful areas were palpated. A 25-gauge 1-1/4 inch needle was used to inject 0.5% ropivacaine with a mixture of 40 mg of Depo-Medrol or 3 painful areas in the left paravertebral area. Negative aspiration was confirmed prior any injection. There is no longer any air. The area was covered with a Band- Aid and I explained the expectations of the procedure to the patient. She has a follow-up appointment with our office. Complications: none. Disposition: The patient was discharged from recovery room after discharge criteria met and home discharge instructions was given by the staff and patient will follow with the pain as directed.
[2020-05-12 08:43] VITALS: BP 109/67; PULSE 77
== END ==
LOC: ORPAIN 07:58
PROVIDERS: ATTEND Hospitalist
DX: M79.18 Myalgia, other site (principal); Z78.0 Asymptomatic menopausal state; E11.9 Type 2 diabetes mellitus without complications
CPT/HCPCS: 20553; J1030; J2795

== ENCOUNTER → 2020-06-24 | Outpatient (CLI) | payer MEDICARE, OTHER ==
[2020-06-24 09:11] VITALS: BP 161/100; PULSE 88; RESP 16; TEMP 97.6
--- NOTE | 2020-06-24 09:30 | P.PN ---
Subjective Progress Note Date: 06/24/20 This is a follow visit for this 65 years old female with a chronic history of severe mid back pain patient diagnosed with myofascial pain syndrome thoracic area and also she's been diagnosed with thoracic spondylosis, she had MRI of the thoracic spine done previously which showed that she had thoracic scoliosis, and she had compression fracture at L1 level, patient also had low back pain , she is diagnosed with lumbar spondylosis and sacroiliitis previously we have done RFA of the medial branch lumbar area and sacroiliac joint steroid injection, currently most of her problem is the mid back pain on the left side is continuous interfere with the quality of life increases with any movement, she continued to use Percocet 10/325 every 6 hours when necessary and Lyrica 300 mg twice a day, and Zanaflex when necessary, he denies any side effect of the medication she denies any excessive drowsiness or sleepiness and she denies any fever or night sweats with and there is no change in the bowel movement or urination Objective - Vital Signs Vital signs: Vital Signs Temp 97.6 F 06/24/20 08:57 Pulse 88 06/24/20 08:57 Resp 16 06/24/20 08:57 BP 161/100 06/24/20 08:57 Pulse Ox 98 06/24/20 08:57 - Exam Physical Examinations : -Constitutiona : Cooperative , not in acute distress . -HEENT : nech : supple , no Lymphadenopathy , normal thyroid size . : eyes : no ptosis , no icterus, no photophobia . - neurologic : Cranial nerve II to XII intact , no focal neurological deffecit . -psychatric : alert , oriented X 3 , appropriate affect , intact judgment and insight . -Lymphatic : no Lymphadenopathy . - musculoskeltal : Cervical Spine motor stregnth in the deltoid and biceps, normal right side , normal Left side motor stregnth biceps and the wrist extensors normal right side ,normal left side . motor stregnth in the triceps muscle . normal Right side , normal Left side deep tendon reflexes normal at the biceps , normal at Brachioradialis , normal at triceps. Thoracic spine= Positive facet loading test on the left side mid thoracic area Positive trigger point on the left side in the paraspinal muscles Lumber spine moter stegnth lower extremities ,thigh and legs 5/5 Right side , 5/5 Left side deep tendon reflexes : normal Knee Jerk , normal ankle Jerk lumber facet Loading Test =positive Right , positive Left Assessment and Plan Plan: Assessment and plan= Chronic severe mid back pain secondary to thoracic spondylosis, and myofascial pain syndrome chronic low back pain secondary to lumbar degenerative disc disease , lumbar spondylosis with lumbar facet arthropathy . chronic and current use of high-risk medication (opioids) Patient denies any side effects of the current pain medication and the current treatment/medication helping the patient to do activity of daily living , Diagnoses, prognosis, treatment options, including but not limited to physical therapy, medication management, interventional therapies, and surgery, were discussed with the patient All the questions answered Patient had no benefit from trigger point injection The narcotic consent was signed and patient agreed and understood the side effects and complications of opioid treatment. Patient signed the narcotic agreement, and was orally counseled, not to overuse, not to abuse, not to Divert , not tp sell pain medication, and to take it as prescribed only, Patient was counseled not to drive or operate heavy equipment while using narcotic medication, and advised not to use alcohol or any Illicit drugs while using the narcotis. understanding that lack of compliance with any of the above instructions, will likely to cause discharge from, the pain service, not to renew his narcotic prescriptions MAPS Reviwed and it was apropriate . Medication managements= patient will be given prescription refills for Percocet 10/325 every 6 hours dispense 110 with one refill, Lyrica 300 mg twice a day dispense 60 with 1 refill Zanaflex 4 mg 3 times a day dispense 90 with 1 refill Interventions= patient could benefit from left-sided diagnostic medial branch block T5, T6 ,T7 ,T8 (exact levels will be determined to do the procedure under fluoroscopy ) - PQRS measures = - Patient's medications are documented in the chart. -Tobacco use is positive ,and counseling.Given. -Patient's has not received pneumococcal vaccine. -Advanced care planning discussed, patient not eligible. -Opiate contract signed. -Pain positive and follow-up visit/procedure is scheduled. -Patient's blood pressure measured [ 161/100] , and documented in the record ,and patient will follow up with the primary care. -Patient's weight was measured and body mass index [26.9 ] above the normal limits and counseling was done. and patient instructed to follow-up with the primary care physician. -Patient was not identified as an unhealthy alcohol user , Time with Patient: Less than 30
== END | disposition home or self-care (01) ==
LOC: PNWHC3 08:48
PROVIDERS: ATTEND Specialist
DX: M79.18 Myalgia, other site (principal); M51.36 Other intervertebral disc degeneration, lumbar region; M47.816 Spondylosis without myelopathy or radiculopathy, lumbar region; M47.814 Spondylosis without myelopathy or radiculopathy, thoracic region; G89.29 Other chronic pain
CPT/HCPCS: 99211

== ENCOUNTER 2020-07-14 06:22 | Day surgery (SDC) | payer MEDICARE, OTHER ==
[2020-07-08 11:36] VITALS: BMI 26.5
[2020-07-14 07:04] VITALS: TEMP 98.3
[2020-07-14 07:18] LABS: Glucose,Whole Blood 98 mg/dL (75-99)
[2020-07-14] MEDS ORDERED: LACTATED RINGERS 1,000 ML IV SCH (07:19)
[2020-07-14] MEDS ORDERED: MIDAZOLAM 2 MG/2 ML VIAL ONE (07:29)
[2020-07-14] MEDS ORDERED: ROPIVACAINE 5MG/ML 20ML VIAL ONE (07:29)
[2020-07-14] MEDS ORDERED: methylPREDNISolone ACETATE 40 MG/ML 1 ML VIAL ONE (07:29)
[2020-07-14] MEDS ORDERED: IV FLUID CONTINUATION 600 ML IV ONE (07:52)
--- NOTE | 2020-07-14 07:53 | P.PCN ---
Date of Procedure: 07/14/20 Procedure(s) Performed: PREOPERATIVE DIAGNOSIS : 1- Thoracic spondylosis with Facet Arthropathy without myelopathy . 2-Thoracic degenerative disc disease POSTOPERATIVE DIAGNOSIS: 1- thoracic spondylosis with Facet Arthropathy without myelopathy . 2- thoracic degenerative disc disease PROCEDURE: Diagnostic Left T8 ,T9 ,T10 ,T11 medial branch block under fluoroscopy guidance(fluoroscopy images available in the radiology Department ) ( To target the facet joint between the left side T9 -10 , T 10- 11, T11- 12 ) ANESTHESIA:, moderate sedation with intravenous Versed 2 mg , EBL: Minimal COMPLICATION: None PROCEDURE INDICATION: Chronic mid back pain secondary to Facet arthropathy unresponsive to conservative treatment. PROCEDURE DESCRIPTION: the patient was seen and identified in the preop holding area , risks and benefits and possible complications of the procedure and alternative were discussed with the patient, and the patient agreed to proceed with the procedure and signed the consent and vital signs monitored during the procedure and fluoroscopy was used to maximize the benefit and accuracy of the needle placement, and sedation was given to decrease patient anxiety, patient was taken to the procedure room and placed in prone position vital signs monitored in the back prepped with chlorhexidine X3 then under strict sterile technique using a right oblique fluoroscopy, the exact level as determined by marking the painful area then under fluoroscopy guidance we looked at the level which showed that the patient had the maximum level between the T8 ,T9 , T10, T11 on the left side ,the junction of the transverse process and the superior articulating process of the left T8, T9, T10, T11 vertebra which corresponding to the fluoroscopy image of the eye of the William dog on the block side for the medial branches and subsequently , after local infiltration of skin and subcu tissuies with Ropivacaine 0.5 % , one mL at each level ,then 25- gauge Quincke-type needles , 4 needle was used , each one of them placed at the junction of the base of the transverse process and the superior articular process at the appropriate level, and the needle was advanced until the periosteum contacted, needle placement confirmed with AP oblique and lateral view and after appropriate needle placement confirmed, and after negative aspiration for heme and CSF and there was no paresthesia 2 mL of Ropivacaine 0.5% mixed with 40 mg Depo-Medrol , then half mL injected at each level after negative aspiration the needle subsequently removed . At the end of the procedure and the needles removed and a bandage applied after the skin was cleaned the cleaning solution patient taken to recovery room in stable condition and monitors in the recovery room for 20-30 minutes and discharged home in stable condition after discharge criteria met and patient will follow up with the pain clinic in 2-4 weeks
[2020-07-14 08:05] LABS: Glucose,Whole Blood 95 mg/dL (75-99)
[2020-07-14 08:08] VITALS: RESP 16
--- NOTE | 2020-07-14 08:22 | FL ---
Fluoroscopy HISTORY: Pain 9 seconds fluoroscopy time supplied to the referring clinician. 2 intraoperative C-arm images docume nt the procedure. See dictated report from anesthesia.
--- NOTE | 2020-07-14 08:50 | XR ---
EXAMINATION TYPE: XR chest 1V portable DATE OF EXAM: 07/14/2020 COMPARISON: Chest x-ray November 30, 2018 HISTORY: History of pneumothorax. TECHNIQUE: Single AP portable frontal upright view of the chest is obtained. FINDINGS: Roughly 1.0 cm calcified left midlung nodule or granuloma redemonstrated with adjacent ye cified left hilar adenopathy. Findings consistent with product of old granulomatous disease. Addition al calcified nodules or granulomas near aortic arch are redemonstrated There is no new suspicious foc al air space opacity, pleural effusion, or pneumothorax seen. The cardiac silhouette size remains wi thin normal limits. Underlying scoliosis redemonstrated. IMPRESSION: No acute process. Evidence of old granulomatous disease redemonstrated. No significant c hange from prior.
[2020-07-14 08:54] VITALS: BP 111/72; PULSE 72
== END 2020-07-14 09:10 | disposition home or self-care (01) ==
LOC: ORPAIN 06:22
PROVIDERS: ATTEND Specialist
DX: G89.29 Other chronic pain (principal); M47.814 Spondylosis without myelopathy or radiculopathy, thoracic region
CPT/HCPCS: 71045; 64490; 64491; 64492; J2250; J1030; J2795; 99152

== ENCOUNTER → 2020-07-30 | Outpatient (CLI) | payer MEDICARE, OTHER ==
--- NOTE | 2020-07-30 11:05 | BD ---
EXAMINATION TYPE: Axial Bone Density DATE OF EXAM: 07/30/2020 COMPARISON: NONE CLINICAL HISTORY: 65 YR OLD FEMALE.....ICD-10 CODE: M89.9 DISORDER OF BONE, postmenopausal female. Height: 60.2 Weight: 142 FRAX RISK QUESTIONS: Glucocorticoids (More than 3mos): YES (Ex: prednisone, prednisolone, methylprednisolone, dexamethasone, and hydrocortisone). History of Fracture in Adulthood: YES Secondary Osteoporosis: YES 1. Type 1 Diabetes: YES 3. Menopause before 45: AT AGE 45 Current Tobacco Use: YES RISK FACTORS HISTORY OF: HX OF NOSE FX, COMPRESSION FX IN SPINE ? L1, Diet low in dairy products/other sources of calcium: NO Postmenopausal woman: YES, AT AGE 45 YRS OLD Lost more than 2 inches in height since high school: YES Hyperparathyroidism: NO Adrenal Insufficiency: NO MEDICATIONS: Prednisone or other steroids: ALBUTEROL, FOR COPD, FOR MANY YRS Additional Medications: BP MEDS, CYMBALTA, LYRICA, DIABETIC MEDS AND INSULIN, REFLUX, STATIN FOR CHOL ESTEROL, Additional History: HYPERTENSION, DIABETIC, CHOLESTEROL EXAM MEASUREMENTS: Bone mineral densitometry was performed using the [employer] System. Bone mineral density as measured about the Lumbar spine is: ----- L1-L4(G/cm2): 1.343 T Score Values are as follows: ----- L1: 0.3 ----- L2: 1.9 ----- L3: 2.4 ----- L4: 0.6 ----- L1-L4: 1.4 Bone mineral density FIRST BONE DENSITY AT [facility] Bone mineral density about the R hip (g/cm2): 0.897 Bone mineral density about the L hip (g/cm2): 0.849 T Score values are as follows: -----R Neck: -1.2 -----L Neck: -1.0 -----R Total: -0.9 -----L Total: -1.3 Bone mineral density FIRST BONE DENSITY AT [facility] FRAX%s: THERE IS A 21.3% CHANCE FOR A MAJOR OSTEOPOROTIC FX AND A 3.6% FOR HIP......PROBABILITY FO R FX IN 10 YRS TIME IMPRESSION: Osteopenia (T Score between -2.5 and -1). There is slightly increased risk of fracture and the patient may be considered for treatment. Re-Screen 2-5 years. NOTE: T-SCORE=SD OF THE YOUNG ADULT MEAN.
== END | disposition home or self-care (01) ==
LOC: RADBDWWP 09:36
PROVIDERS: ATTEND Family Medicine
DX: Z13.820 Encounter for screening for osteoporosis (principal); M85.80 Other specified disorders of bone density and structure, unspecified site; E11.9 Type 2 diabetes mellitus without complications; Z72.0 Tobacco use; S32.010A Wedge compression fracture of first lumbar vertebra, initial encounter for closed fracture
CPT/HCPCS: 77080

== ENCOUNTER 2020-08-11 07:34 | Day surgery (SDC) | payer MEDICARE, OTHER ==
[2020-08-10 09:37] VITALS: BMI 45.7
[~2020-08-11 07:34] MED LIST changes: -ROPIVACAINE 5MG/ML 20ML VIAL ONE; -methylPREDNISolone ACETATE 40 MG/ML 1 ML VIAL ONE
[2020-08-11 08:34] VITALS: RESP 16; TEMP 96.3
[2020-08-11] MEDS ORDERED: LIDOCAINE 1% (10MG/ML) FOR IV START INTRADERMA ONE (08:44)
[2020-08-11] MEDS ORDERED: ROPIVACAINE 5MG/ML 20ML VIAL ONE (08:46)
[2020-08-11] MEDS ORDERED: MIDAZOLAM 2 MG/2 ML VIAL ONE (08:46)
[2020-08-11] MEDS ORDERED: methylPREDNISolone ACETATE 40 MG/ML 1 ML VIAL ONE (08:46)
[2020-08-11] MEDS ORDERED: fentaNYL (PF) 50 MCG/ML 2 ML AMP ONE (08:46)
[2020-08-11 08:48] LABS: Glucose,Whole Blood 129 mg/dL (75-99)
--- NOTE | 2020-08-11 09:03 | P.PCN ---
Date of Procedure: 08/11/20 Procedure(s) Performed: PREOPERATIVE DIAGNOSIS : 1- Thoracic spondylosis with Facet Arthropathy without myelopathy . 2-Thoracic degenerative disc disease POSTOPERATIVE DIAGNOSIS: 1- thoracic spondylosis with Facet Arthropathy without myelopathy . 2- thoracic degenerative disc disease PROCEDURE: Diagnostic Left T8 ,T9 ,T10 ,T11 medial branch block under fluoroscopy guidance(fluoroscopy images available in the radiology Department ) ( To target the facet joint between the left side T9 -10 , T 10- 11, T11- 12 )# 2nd ANESTHESIA:, moderate sedation with intravenous Versed 2 mg , fentanyl 50 g EBL: Minimal COMPLICATION: None PROCEDURE INDICATION: Chronic mid back pain secondary to Facet arthropathy unresponsive to conservative treatment. PROCEDURE DESCRIPTION: the patient was seen and identified in the preop holding area , risks and benefits and possible complications of the procedure and alternative were discussed with the patient, and the patient agreed to proceed with the procedure and signed the consent and vital signs monitored during the procedure and fluoroscopy was used to maximize the benefit and accuracy of the needle placement, and sedation was given to decrease patient anxiety, patient was taken to the procedure room and placed in prone position vital signs monitored in the back prepped with chlorhexidine X3 then under strict sterile technique using a right oblique fluoroscopy, the exact level as determined by marking the painful area then under fluoroscopy guidance we looked at the level which showed that the patient had the maximum level between the T8 ,T9 , T10, T11 on the left side ,the junction of the transverse process and the superior articulating process of the left T8, T9, T10, T11 vertebra which corresponding to the fluoroscopy image of the eye of the William dog on the block side for the medial branches and subsequently , after local infiltration of skin and subcu tissuies with Ropivacaine 0.5 % , one mL at each level ,then 25- gauge Quincke-type needles , 4 needle was used , each one of them placed at the junction of the base of the transverse process and the superior articular process at the appropriate level, and the needle was advanced until the periosteum contacted, needle placement confirmed with AP oblique and lateral view and after appropriate needle placement confirmed, and after negative aspiration for heme and CSF and there was no paresthesia 2 mL of Ropivacaine 0.5% mixed with 40 mg Depo-Medrol , then half mL injected at each level after negative aspiration the needle subsequently removed . At the end of the procedure and the needles removed and a bandage applied after the skin was cleaned the cleaning solution patient taken to recovery room in stable condition and monitors in the recovery room for 20-30 minutes and disc harged home in stable condition after discharge criteria met and patient will follow up with the pain clinic in 2-4 weeks
[2020-08-11] MEDS ORDERED: IV FLUID CONTINUATION 1,000 ML IV ONE (09:06)
[2020-08-11 09:27] VITALS: BP 128/69; PULSE 77
--- NOTE | 2020-08-11 09:35 | FL ---
Fluoroscopy HISTORY: Pain 10 seconds fluoroscopy time supplied to the referring clinician. 2 intraoperative C-arm images docum ent the procedure. See dictated report from anesthesia.
--- NOTE | 2020-08-11 09:46 | XR ---
EXAMINATION TYPE: XR chest 1V portable DATE OF EXAM: 08/11/2020 COMPARISON: Chest x-ray 07/14/2020 HISTORY: Status post facet cervical and thoracic spine block, history COPD, rule out pneumothorax, ab normal chest x-ray TECHNIQUE: Single frontal view of the chest is obtained. FINDINGS: There is no significant interval change. Evidence of old granulomatous disease is present. There is an S-shaped thoracic lumbar scoliosis. Aorta is dense. Cardiac mediastinal silhouette is st able. No pneumothorax or pleural effusion. Patient is rotated, exam is expiratory. IMPRESSION: No evident complication status post facet block.
== END 2020-08-11 09:58 | disposition home or self-care (01) ==
LOC: ORPAIN 07:34
PROVIDERS: ATTEND Specialist
DX: G89.29 Other chronic pain (principal); M47.814 Spondylosis without myelopathy or radiculopathy, thoracic region; M51.34 Other intervertebral disc degeneration, thoracic region; I10 Essential (primary) hypertension; E11.9 Type 2 diabetes mellitus without complications; Z88.1 Allergy status to other antibiotic agents; Z88.2 Allergy status to sulfonamides; Z88.6 Allergy status to analgesic agent
CPT/HCPCS: 71045; 64490; 64491; 64492; J2250; J1030; J3010; J2795; 99152

== ENCOUNTER → 2020-08-19 | Outpatient (CLI) | payer MEDICARE, OTHER ==
[2020-08-19 08:37] VITALS: BP 167/83; PULSE 82; RESP 18; TEMP 97.3
--- NOTE | 2020-08-19 08:58 | P.PN ---
Subjective Progress Note Date: 08/19/20 This is a follow visit for this 65 years old female with a chronic history of severe mid back pain patient ,diagnosed with thoracic spondylosis with thoracic facet arthropathy, recently we did diagnostic medial branch block thoracic area,T8 ,T9 ,T10 ,T11 x2 she get 100% relief after each block, the pain was 8/10 before the block dropped to the 0/10 after the block, the pain relief was only for short-term, she had MRI of the thoracic spine done previously which showed that she had thoracic scoliosis, and she had compression fracture at L1 level, patient also had low back pain , she is diagnosed with lumbar spondylosis and sacroiliitis previously we have done RFA of the medial branch lumbar area an d sacroiliac joint steroid injection, currently most of her problem is the mid back pain on the left side is continuous interfere with the quality of life increases with any movement, she continued to use Percocet 10/325 every 6 hours when necessary and Lyrica 300 mg twice a day, and Zanaflex when necessary, he denies any side effect of the medication she denies any excessive drowsiness or sleepiness and she denies any fever or night sweats with and there is no change in the bowel movement or urination Objective - Vital Signs Vital signs: Vital Signs Temp 97.3 F L 08/19/20 08:32 Pulse 82 08/19/20 08:32 Resp 18 08/19/20 08:32 BP 167/83 08/19/20 08:32 Pulse Ox 96 08/19/20 08:32 - Exam -Constitutiona : Cooperative , not in acute distress . -HEENT : nech : supple , no Lymphadenopathy , normal thyroid size . : eyes : no ptosis , no icterus, no photophobia . - neurologic : Cranial nerve II to XII intact , no focal neurological deffecit . -psychatric : alert , oriented X 3 , appropriate affect , intact judgment and insight . -Lymphatic : no Lymphadenopathy . - musculoskeltal : Cervical Spine motor stregnth in the deltoid and biceps, normal right side , normal Left side motor stregnth biceps and the wrist extensors normal right side ,normal left side . motor stregnth in the triceps muscle . normal Right side , normal Left side deep tendon reflexes normal at the biceps , normal at Brachioradialis , normal at triceps. Thoracic spine= Positive facet loading test on the left side mid thoracic area Positive trigger point on the left side in the paraspinal muscles Lumber spine moter stegnth lower extremities ,thigh and legs 5/5 Right side , 5/5 Left side deep tendon reflexes : normal Knee Jerk , normal ankle Jerk lumber facet Loading Test =positive Right , positive Left Assessment and Plan Plan: Assessment and plan= Chronic severe mid back pain secondary to thoracic spondylosis with thoracic facet arthropathy. Patient had 100 % pain relief after diagnostic medial branch block chronic low back pain secondary to lumbar degenerative disc disease , lumbar spondylosis with lumbar facet arthropathy . chronic and current use of high-risk medication (opioids) Patient denies any side effects of the current pain medication and the current treatment/medication helping the patient to do activity of daily living , Diagnoses, prognosis, treatment options, including but not limited to physical therapy, medication management, interventional therapies, and surgery, were discussed with the patient All the questions answered Patient had no benefit from trigger point injection The narcotic consent was signed and patient agreed and understood the side effects and complications of opioid treatment. Patient signed the narcotic agreement, and was orally counseled, not to overuse, not to abuse, not to Divert , not tp sell pain medication, and to take it as prescribed only, Patient was counseled not to drive or operate heavy equipment while using narcotic medication, and advised not to use alcohol or any Illicit drugs while using the narcotis. understanding that lack of compliance with any of the above instructions, will likely to cause discharge from, the pain service, not to renew his narcotic prescriptions MAPS Reviwed and it was apropriate . Medication managements= patient will be given prescription refills for Percocet 10/325 every 6 hours dispense 110 with one refill, Lyrica 300 mg twice a day dispense 60 with 1 refill Zanaflex 4 mg 3 times a day dispense 90 with 1 refill Urine drug screen today Interventions= patient could benefit from left-sided RFA medial branch block T8 ,T9, T10 ,T11 (exact levels will be determined to do the procedure under fluoroscopy ) - PQRS measures = - Patient's medications are documented in the chart. -Tobacco use is positive ,and counseling.Given. -Patient's has received pneumococcal vaccine. -Advanced care planning discussed, patient not eligible. -Opiate contract signed. -Pain positive and follow-up visit/procedure is scheduled. -Patient's blood pressure measured [ 167/83] , and documented in the record ,and patient will follow up with the primary care. -Patient's weight was measured and body mass index [26.9 ] above the normal limits and counseling was done. and patient instructed to follow-up with the primary care physician. -Patient was not identified as an unhealthy alcohol user Time with Patient: Less than 30
== END | disposition home or self-care (01) ==
LOC: PNWHC3 08:25
PROVIDERS: ATTEND Specialist
DX: M47.814 Spondylosis without myelopathy or radiculopathy, thoracic region (principal); M51.36 Other intervertebral disc degeneration, lumbar region; M47.816 Spondylosis without myelopathy or radiculopathy, lumbar region
CPT/HCPCS: 80307; G0482; G0463; 99212

== ENCOUNTER 2020-09-04 10:52 | Day surgery (SDC) | payer MEDICARE, OTHER ==
[2020-09-01 15:44] VITALS: BMI 26.9
[2020-09-04] MEDS ORDERED: LACTATED RINGERS 1,000 ML IV ONE ×2 (11:06)
[2020-09-04 11:22] LABS: Glucose,Whole Blood 108 mg/dL (75-99)
[2020-09-04] MEDS ORDERED: LIDOCAINE 1% (10MG/ML) FOR IV START INTRADERMA ONE (11:22)
[2020-09-04 11:24] VITALS: TEMP 98
[2020-09-04] MEDS ORDERED: LIDOCAINE 1% INJ 10MG/ML (20 ML MDV) ONE (12:55)
[2020-09-04] MEDS ORDERED: LIDOCAINE 4% (PF) 5 ML AMP ONE (12:55)
[2020-09-04] MEDS ORDERED: fentaNYL (PF) 50 MCG/ML 2 ML AMP ONE (12:56)
[2020-09-04] MEDS ORDERED: MIDAZOLAM 2 MG/2 ML VIAL ONE (12:56)
--- NOTE | 2020-09-04 13:22 | P.PCN ---
Date of Procedure: 09/04/20 Description of Procedure: PREOPERATIVE DIAGNOSIS: Thoracic Spondylosis POSTOPERATIVE DIAGNOSIS: Same PROCEDURES: Radiofrequency ablation of the T8, T9, T10, T11 medial branches with fluoroscopic guidance (for facet joints T8-9 and T9-10 and T10-T11 on the left side SURGEON: Waldo Golden MD ANESTHESIA: Lidocaine 1% 5 mL, Moderate sedation with intravenous Versed and fentanyl, sedation time 21 minutes EBL: Minimal Fluoroscopy was used for the procedure and images were saved in the radiology portion of the chart. PROCEDURE INDICATION: The patient with low back pain secondary to Thoracic facet arthropathy who had more than 80% relief of pain with previous diagnostic Thoracic medial branch block X2. PROCEDURE DESCRIPTION / TECHNIQUE: The patient was seen and identified in the preoperative area. Risks, benefits, complications, including but not limited to risk of infection ,bleeding , allergic reactions to the medications and incomplete pain relief , and alternatives were discussed with the patient, the patient agreed to proceed with the procedure and signed the consent. IV was started. The operative site was marked. Patient was taken to the OR and time out was completed. The patient was placed in the prone position on the procedure table. The Thoracic area was prepped and draped in the usual sterile fashion. . Vital signs were closely monitored during the procedure .IV sedation was used during the procedure to decrease patients anxiety. Using AP and then contralateral oblique with caudal tilt fluoroscopy, the transverse articular processes of the T8, T9, T10 T11 vertebrae were identified, marked, and localized with 1% lidocaine. Subsequently, an 18 gauge 100 mm radiofrequency cannula with a 10-mm active tip was advanced guided by fluoroscopy to the identified target at each site (superolateral portion of the above-mentioned transverse processes). Needle positioning was confirmed on AP, oblique and lateral fluoroscopy. Motor testing at 2.5 Hz was done with paraspinal muscle stimulation only, and no radicular symptoms. Then 1 mL of 4% lidocaine was injected in each site. Radiofrequency thermocoagulation at 80 degrees celsius for 90 seconds was then performed. A second radiofrequency thermocoagulation was performed after advancing the needles slightly more lateral along the transverse process. [place] were removed. Sterile dressings were applied. COMPLICATIONS: No acute complications. DISPOSITION / PLANS: The patient was placed in a supine position and transferred to the recovery area in a stable condition for observation and was discharged from the recovery room after meeting discharge criteria. Home discharge instructions given to the patient by the staff. The patient will follow up in clinic in 4 weeks.
[2020-09-04] MEDS ORDERED: IV FLUID CONTINUATION 1,000 ML IV ONE ×3 (13:27)
[2020-09-04 13:42] VITALS: RESP 18
--- NOTE | 2020-09-04 13:45 | FL ---
EXAMINATION TYPE: FL guided pain mgmt statistic DATE OF EXAM: 09/04/2020 HISTORY: Fluoroscopy time 34 seconds of fluoroscopy provided. IMPRESSION: 1. Fluoroscopy time.
[2020-09-04 13:52] VITALS: BP 146/86; PULSE 81
== END 2020-09-04 14:05 | disposition home or self-care (01) ==
LOC: ORPAIN 10:52
PROVIDERS: ATTEND Anesthesiology
DX: M47.814 Spondylosis without myelopathy or radiculopathy, thoracic region (principal); I10 Essential (primary) hypertension; E78.5 Hyperlipidemia, unspecified; J44.9 Chronic obstructive pulmonary disease, unspecified; E11.9 Type 2 diabetes mellitus without complications; F41.9 Anxiety disorder, unspecified; F32.9 Major depressive disorder, single episode, unspecified; F43.10 Post-traumatic stress disorder, unspecified; K21.9 Gastro-esophageal reflux disease without esophagitis; Z88.2 Allergy status to sulfonamides; Z88.6 Allergy status to analgesic agent; Z88.5 Allergy status to narcotic agent; Z91.048 Other nonmedicinal substance allergy status; Z86.73 Personal history of transient ischemic attack (TIA), and cerebral infarction without residual deficits; Z79.82 Long term (current) use of aspirin; Z79.1 Long term (current) use of non-steroidal anti-inflammatories (NSAID); Z79.4 Long term (current) use of insulin; Z79.899 Other long term (current) drug therapy; Z78.0 Asymptomatic menopausal state
CPT/HCPCS: 64633; 64634 ×2; J2001 ×2; J2250; J3010; 99152; 99153

== ENCOUNTER → 2020-10-14 | Outpatient (CLI) | payer MEDICARE, OTHER ==
--- NOTE | 2020-10-14 10:54 | P.PN ---
Subjective Progress Note Date: 10/14/20 Sheryl presents for follow-up today secondary to her chronic low back pain. She reports that the upper back pain has significantly improved after the radiofrequency ablation. She reports greater than 50% relief of the mid thoracic pain. She continues to have some mild pain in the left lower lumbar spine. She also has chronic pain throughout her body. She has significant scoliosis. She reports the pain medications do improve her pain. She was taking little bit less medications since she's having the radiofrequency ablation of the thoracic spine. She finds occasionally she has to take the full dose when she is working or ambulating excessively. She denies any side effects from the medications. Her VAS today is about 3 out of 10. Review of Systems: Denies any New chest pain, short of breath, Nausea/vomitting, abdominal pain, bowel or bladder incontinence, or any overt new neurologic symp toms in his upper or lower extremities. Objective - Exam General: Awake and alert oriented 3 no distress Respiratory exam: No audible wheezing no accessory muscle usage Cervical spine: Normal alignment, Spurling's negative, facet loading negative, Business Investor strength is 5/5, strange negative Lumbar spine: Forward flexed body position, dextroscoliosis, loss of lordosis. Tender to palpation over the lumbar spine. No tenderness, erythema over the thoracic spine. Lower extremity strength is 5 out of 5 bilaterally at the quadriceps hamstrings as well as anterior tibialis. Sacroiliac joints: Nontender to palpation, СВЕТЛАНА is negative, Gaenselon negative Neuro exam: Normal sensation in bilateral upper extremities, deep tendon reflexes are 2+ bilateral upper extremities. Normal sensation in bilateral lower extremities. Deep tendon reflexes are 1+ + in lower extremities at the patella and Achilles Psych exam: Cooperative, appropriate mood Assessment and Plan Assessment: #1 dextroscoliosis #2 thoracic spondylosis without myelopathy #3 myofascial pain #4 diabetic neuropathy Plan: After review the records and examination the patient I believe she is a good candidate to continue the current medications. We'll not recommend any injectio ns at this time. We'll continue follow-up with the patient in about 8 weeks' time. I have spent 24 minutes on patient care today. The time was used to review the medical records including relevant urine studies and Prescription history (MAPs), review of the available imaging, evaluation and examination of the patient, coordination of care with the medical staff and if applicable referring physicians, as well as creation of the medical record. Maps were checked and appropriate, opioid start talking form is on file and updated, urine drug screens of been appropriate and have been reviewed.
[2020-10-14 11:28] VITALS: BP 145/83; PULSE 84; RESP 18; TEMP 98.1
== END ==
LOC: PNWHC3 10:02
PROVIDERS: ATTEND Hospitalist
DX: M47.814 Spondylosis without myelopathy or radiculopathy, thoracic region (principal); M41.80 Other forms of scoliosis, site unspecified; M79.18 Myalgia, other site; E11.40 Type 2 diabetes mellitus with diabetic neuropathy, unspecified; Z87.891 Personal history of nicotine dependence; Z79.84 Long term (current) use of oral hypoglycemic drugs
CPT/HCPCS: 99211

== ENCOUNTER → 2020-12-09 | Outpatient (CLI) | payer MEDICARE, OTHER ==
[2020-12-09 10:46] VITALS: BP 168/101; PULSE 92; RESP 16; TEMP 97.9
--- NOTE | 2020-12-09 15:22 | P.PN ---
Subjective Progress Note Date: 12/09/20 This is a follow visit for this 65 years old female with a chronic history of severe mid back pain patient ,diagnosed with thoracic spondylosis with thoracic facet arthropathy, previousley we did RFA medial branch block thoracic area,T8 ,T9 ,T10 ,T11 , she had MRI of the thoracic spine done previously which showed that she had thoracic scoliosis, and she had compression fracture at L1 level, patient also had low back pain , she is diagnosed with lumbar spondylosis and sacroiliitis previously we have done RFA of the medial branch lumbar area and sacroiliac joint steroid injection, currently most of the pain is localized in the low back area is increased with any activity, severe and localized in the low back area with radiation to the buttock bilaterally,it is continuous interfere with the quality of life increases with any movement, she continued to use Percocet 10/325 every 6 hours when necessary and Lyrica 300 mg twice a day, and Zanaflex when necessary, he denies any side effect of the medication she denies any excessive drowsiness or sleepiness and she denies any fever or night sweats with and there is no change in the bowel movement or urination Objective - Vital Signs Vital signs: Vital Signs Temp 97.9 F 12/09/20 10:43 Pulse 92 12/09/20 10:43 Resp 16 12/09/20 10:43 BP 168/101 12/09/20 10:43 Pulse Ox 95 12/09/20 10:43 - Exam Physical Examinations : -Constitutiona : Cooperative , not in acute distress . -HEENT : nech : supple , no Lymphadenopathy , normal thyroid size . : eyes : no ptosis , no icterus, no photophobia . - neurologic : Cranial nerve II to XII intact , no focal neurological deffecit . -psychatric : alert , oriented X 3 , appropriate affect , intact judgment and insight . -Lymphatic : no Lymphadenopathy . - musculoskeltal : Lumber spine moter stegnth lower extremities ,thigh and legs 5/5 Right side , 5/5 Left side deep tendon reflexes : normal Knee Jerk , normal ankle Jerk lumber facet Loading Test =positive Right , positive Left Range of motion of the lumbar spine Flexion 30 degrees, extension 10 degrees strait leg raising test = positive at 30 degree Fabere test= positive Right , and positive LT . Sever tenderness over the Sacroiliac joint on the Right , and Left sides Gaenslen test= positive right ,and positive left . Seated flexion test= positive right ,and positive Left . Distraction test= positive bilaterally Sacroiliac compression test= positive bilaterally Assessment and Plan Plan: Assessment and plan= Chronic severe mid back pain secondary to thoracic spondylosis with thoracic facet arthropathy. chronic low back pain secondary to lumbar degenerative disc disease , lumbar spondylosis with lumbar facet arthropathy . she had increased pain in the low back area which is interfering with the quality of life chronic and current use of high-risk medication (opioids) Patient denies any side effects of the current pain medication and the current treatment/medication helping the patient to do activity of daily living , Diagnoses, prognosis, treatment options, including but not limited to physical therapy, medication management, interventional therapies, and surgery, were discussed with the patient All the questions answered Patient had no benefit from trigger point injection The narcotic consent was signed and patient agreed and understood the side effects and complications of opioid treatment. Patient signed the narcotic agreement, and was orally counseled, not to overuse, not to abuse, not to Divert , not tp sell pain medication, and to take it as prescribed only, Patient was counseled not to drive or operate heavy equipment while using narcotic medication, and advised not to use alcohol or any Illicit drugs while using the narcotis. understanding that lack of compliance with any of the above instructions, will likely to cause discharge from, the pain service, not to renew his narcotic prescriptions MAPS Reviwed and it was apropriate . Medication managements= patient will be given prescription refills for Percocet 10/325 every 6 hours dispense 110 with one refill, Lyrica 300 mg twice a day dispense 60 with 1 refill Zanaflex 4 mg 3 times a day dispense 90 with 1 refill Interventions= order MRI of the lumbar spine, she will follow up in the pain clinic in 2 weeks for reevaluation - PQRS measures = - Patient's medications are documented in the chart. -Tobacco use is positive ,and counseling.Given. -Patient's has received pneumococcal vaccine. -Advanced care planning discussed, patient not eligible. -Opiate contract signed. -Pain positive and follow-up visit/procedure is scheduled. -Patient's blood pressure measured [ 167/83] , and documented in the record ,and patient will follow up with the primary care. -Patient's weight was measured and body mass index [26.9 ] above the normal limits and counseling was done. and patient instructed to follow-up with the primary care physician. -Patient was not identified as an unhealthy alcohol user Time with Patient: Less than 30
== END ==
LOC: PNWHC3 10:32
PROVIDERS: ATTEND Specialist
DX: M47.814 Spondylosis without myelopathy or radiculopathy, thoracic region (principal); M51.36 Other intervertebral disc degeneration, lumbar region; G89.29 Other chronic pain; M47.816 Spondylosis without myelopathy or radiculopathy, lumbar region; Z79.891 Long term (current) use of opiate analgesic; Z88.6 Allergy status to analgesic agent; Z88.5 Allergy status to narcotic agent; Z91.048 Other nonmedicinal substance allergy status; Z88.2 Allergy status to sulfonamides; Z88.1 Allergy status to other antibiotic agents; Z87.891 Personal history of nicotine dependence
CPT/HCPCS: 99211

== ENCOUNTER → 2020-12-31 | Outpatient (CLI) | payer MEDICARE, OTHER ==
--- NOTE | 2020-12-31 15:00 | MR ---
EXAMINATION TYPE: MR lumbar spine wo con DATE OF EXAM: 12/31/2020 COMPARISON: 04/29/2019 HISTORY: Low back pain into tailbone for 2 months. TECHNIQUE: Multiplanar, multisequence images of the lumbar spine were acquired. L1-L2: There is a disc bulge with mild bilateral facet arthropathy resulting in mild bilateral neural foraminal narrowing, similar to the prior exam. L2-L3: There is a disc bulge with moderate bilateral facet arthropathy resulting in moderate left naman ral foraminal narrowing and moderate central canal stenosis, similar to the prior exam. L3-L4: There is a disc bulge with moderate bilateral facet arthropathy and ligamentum flavum hypertro phy resulting in moderate left and mild right neural foraminal narrowing and mild central canal is. L4-L5: There is a disc bulge with moderate bilateral facet arthropathy resulting in mild bilateral ne ural foraminal narrowing and mild central canal stenosis, similar to the prior exam. L5-S1: There is a disc bulge with mild bilateral facet arthropathy resulting in mild right neural for aminal narrowing, similar to prior exam. L1 compression fracture appears similar to the prior examination. The conus terminates at approximate ly L1-2. Dextroscoliosis is noted on geology teacher imaging. IMPRESSION: L1 compression fracture, dextroscoliosis and multilevel disc disease and osteoarthritic changes appea rs similar to the prior examination.
== END | disposition home or self-care (01) ==
LOC: RADMRIMAIN 11:04
PROVIDERS: ATTEND Specialist
DX: M41.84 Other forms of scoliosis, thoracic region (principal); M51.36 Other intervertebral disc degeneration, lumbar region; M48.56XA Collapsed vertebra, not elsewhere classified, lumbar region, initial encounter for fracture
CPT/HCPCS: 72148

== ENCOUNTER → 2021-01-04 | Outpatient (CLI) | payer MEDICARE, OTHER ==
[2021-01-04 12:23] VITALS: BP 162/90; PULSE 84; RESP 16; TEMP 98.3
--- NOTE | 2021-01-04 12:35 | P.PN ---
Subjective Progress Note Date: 01/04/21 This is a follow visit for this 65 years old female with a chronic history of severe mid back pain patient ,diagnosed with thoracic spondylosis with thoracic facet arthropathy, previousley we did RFA medial branch block thoracic area,T8 ,T9 ,T10 ,T11 , she had MRI of the thoracic spine done previously which showed that she had thoracic scoliosis, and she had compression fracture at L1 level, patient also had low back pain , she is diagnosed with lumbar spondylosis and sacroiliitis previously we have done RFA of the medial branch lumbar area and sacroiliac joint steroid injection, currently most of the pain is localized in the low back area is increased with any activity, severe and localized in the low back area with radiation to the buttock bilaterally,it is continuous interfere with the quality of life increases with any movement, she continued to use Percocet 10/325 every 6 hours when necessary and Lyrica 300 mg twice a day, and Zanaflex when necessary, he denies any side effect of the medication she denies any excessive drowsiness or sleepiness and she denies any fever or night sweats with and there is no change in the bowel movement or urinations, last visit we ordered MRI of the lumbar spine and it showed that she had compression fracture in L1 and also she had multilevel degenerative disc disease and multilevel lumbar spondylosis with lumbar facet arthropathy Physical Examinations : -Constitutiona : Cooperative , not in acute distress . -HEENT : nech : supple , no Lymphadenopathy , normal thyroid size . : eyes : no ptosis , no icterus, no photophobia . - neurologic : Cranial nerve II to XII intact , no focal neurological deffecit . -psychatric : alert , oriented X 3 , appropriate affect , intact judgment and insight . -Lymphatic : no Lymphadenopathy . - musculoskeltal : Lumber spine moter stegnth lower extremities ,thigh and legs 5/5 Right side , 5/5 Left side deep tendon reflexes : normal Knee Jerk , normal ankle Jerk lumber facet Loading Test =positive Right , positive Left Range of motion of the lumbar spine Flexion 30 degrees, extension 10 degrees strait leg raising test = positive at 30 degree Fabere test= positive Right , and positive LT . Sever tenderness over the Sacroiliac joint on the Right , and Left sides Gaenslen test= positive right ,and positive left . Seated flexion test= positive right ,and positive Left . Distraction test= positive bilaterally Sacroiliac compression test= positive bilaterally Assessment and plan= Chronic severe mid back pain secondary to thoracic spondylosis with thoracic facet arthropathy. chronic low back pain secondary to lumbar degenerative disc disease , lumbar spondylosis with lumbar facet arthropathy . she had increased pain in the low back area which is interfering with the quality of life chronic and current use of high-risk medication (opioids) Patient denies any side effects of the current pain medication and the current treatment/medication helping the patient to do activity of daily living , Diagnoses, prognosis, treatment options, including but not limited to physical therapy, medication management, interventional therapies, and surgery, were discussed with the patient All the questions answered Patient had no benefit from trigger point injection The narcotic consent was signed and patient agreed and understood the side effects and complications of opioid treatment. Patient signed the narcotic agreement, and was orally counseled, not to overuse, not to abuse, not to Divert , not tp sell pain medication, and to take it as prescribed only, Patient was counseled not to drive or operate heavy equipment while using narcotic medication, and advised not to use alcohol or any Illicit drugs while using the narcotis. understanding that lack of compliance with any of the above instructions, will likely to cause discharge from, the pain service, not to renew his narcotic prescriptions MAPS Reviwed and it was apropriate . Medication managements= she had prescription refill done a few weeks ago Interventions= patient could benefit from RFA medial branch lumbar area at L3, L4, L5 bilaterally ( to denervate L4-5 ,L5-S1 ) - PQRS measures = - Patient's medications are documented in the chart. -Tobacco use is positive ,and counseling.Given. -Patient's has received pneumococcal vaccine. -Advanced care planning discussed, patient not eligible. -Opiate contract signed. -Pain positive and follow-up visit/procedure is scheduled. -Patient's blood pressure measured [ 162/90] , and documented in the record ,and patient will follow up with the primary care. -Patient's weight was measured and body mass index [26.5 ] above the normal limits and counseling was done. and patient instructed to follow-up with the primary care physician. -Patient was not identified as an unhealthy alcohol user Objective - Vital Signs Vital signs: Vital Signs Temp 98.3 F 06/21/21 12:21 Pulse 84 01/04/21 12:21 Resp 16 01/04/21 12:21 BP 162/90 01/04/21 12:21 Pulse Ox 95 01/04/21 12:21
== END ==
LOC: PNWHC3 11:44
PROVIDERS: ATTEND Specialist
DX: M47.814 Spondylosis without myelopathy or radiculopathy, thoracic region (principal); M47.816 Spondylosis without myelopathy or radiculopathy, lumbar region; G89.29 Other chronic pain; M51.36 Other intervertebral disc degeneration, lumbar region; Z79.891 Long term (current) use of opiate analgesic; Z88.1 Allergy status to other antibiotic agents; Z88.5 Allergy status to narcotic agent; Z88.6 Allergy status to analgesic agent; Z91.048 Other nonmedicinal substance allergy status; Z88.2 Allergy status to sulfonamides; Z87.891 Personal history of nicotine dependence
CPT/HCPCS: 99211

== ENCOUNTER 2021-01-22 07:32 | Day surgery (SDC) | payer MEDICARE, OTHER ==
[2021-01-21 10:29] VITALS: BMI 26.9
[2021-01-22 08:04] VITALS: TEMP 97.1
[2021-01-22] MEDS ORDERED: LACTATED RINGERS 1,000 ML IV ONE ×2 (08:13)
[2021-01-22] MEDS ORDERED: fentaNYL (PF) 50 MCG/ML 2 ML AMP ONE (08:17)
[2021-01-22] MEDS ORDERED: MIDAZOLAM 2 MG/2 ML VIAL ONE (08:17)
[2021-01-22] MEDS ORDERED: LIDOCAINE 1% INJ 10MG/ML (20 ML MDV) ONE (08:17)
[2021-01-22] MEDS ORDERED: ROPIVACAINE 5MG/ML 20ML VIAL ONE (08:17)
[2021-01-22 08:18] LABS: Glucose,Whole Blood 122 mg/dL (75-99)
--- NOTE | 2021-01-22 08:49 | P.PCN ---
Date of Procedure: 01/22/21 Description of Procedure: PREOPERATIVE DIAGNOSIS: Lumbar Spondylosis POSTOPERATIVE DIAGNOSIS: Same PROCEDURES: Radiofrequency ablation of the L3, L4, L5 medial branches with fluoroscopic guidance bilaterally SURGEON: Waldo Golden MD. ANESTHESIA: Lidocaine 1% 5 mL, Monitored anesthesia care with anesthesia team EBL: Minimal Fluoroscopy was used for the procedure and images were saved in the radiology portion of the chart. PROCEDURE INDICATION: The patient with low back pain secondary to lumbar facet arthropathy who had more than 50% relief of pain with previous diagnostic lumbar medial branch block X2. PROCEDURE DESCRIPTION / TECHNIQUE: The patient was seen and identified in the preoperative area. Risks, benefits, complications, including but not limited to risk of infection ,bleeding , allergic reactions to the medications and incomplete pain relief , and alternatives were discussed with the patient, the patient agreed to proceed with the procedure and signed the consent. IV was started. The operative site was marked. Patient was taken to the OR and time out was completed. The patient was placed in the prone position on the procedure table. The lumbar area was prepped and draped in the usual sterile fashion. . Vital signs were closely monitored during the procedure .IV sedation was used during the procedure to decrease patients anxiety. Using AP and then oblique fluoroscopy, the "eye of the William dog" corresponding to the connection between the superior and transverse articular processes of the L4 and L5 as well as the sacral ala were identified, marked, and localized with 1% lidocaine. Subsequently, an 18 guage 100 radiofrequency cannula with a 10-mm active tip was advanced guided by fluoroscopy to the identified target at each site. Needle positioning was confirmed on AP, oblique and lateral fluoroscopy. Motor testing at 2.5 Hz was done with paraspinal muscle stimulation only, and no radicular symptoms down the legs. Then 1 mL 0.5% ropivacaine was injected in each site. Radiofrequency thermocoagulation at 80 degrees celsius for 90 seconds was then performed. [place] were removed. Sterile dressings were applied. COMPLICATIONS: No acute complications. DISPOSITION / PLANS: The patient was placed in a supine position and transferred to the recovery area in a stable condition for observation and was discharged from the recovery room after meeting discharge criteria. Home discharge instructions given to the patient by the staff. The patient will follow up in clinic in 4 weeks.
[2021-01-22] MEDS ORDERED: IV FLUID CONTINUATION 1,000 ML IV ONE (08:53)
[2021-01-22 09:17] VITALS: BP 111/64; PULSE 76; RESP 18
--- NOTE | 2021-01-22 10:06 | FL ---
Fluoroscopy HISTORY: Pain 39 seconds fluoroscopy time supplied to the referring clinician. 6 intraoperative C-arm images docum ent the procedure. See dictated report from anesthesia.
== END 2021-01-22 09:28 | disposition home or self-care (01) ==
LOC: ORPAIN 07:32
PROVIDERS: ATTEND Anesthesiology
DX: M47.816 Spondylosis without myelopathy or radiculopathy, lumbar region (principal); Z88.5 Allergy status to narcotic agent; Z88.2 Allergy status to sulfonamides; Z91.09 Other allergy status, other than to drugs and biological substances; Z88.1 Allergy status to other antibiotic agents; I10 Essential (primary) hypertension; E78.5 Hyperlipidemia, unspecified; J44.9 Chronic obstructive pulmonary disease, unspecified; F17.200 Nicotine dependence, unspecified, uncomplicated; E11.9 Type 2 diabetes mellitus without complications; Z86.73 Personal history of transient ischemic attack (TIA), and cerebral infarction without residual deficits; Z79.84 Long term (current) use of oral hypoglycemic drugs; Z79.1 Long term (current) use of non-steroidal anti-inflammatories (NSAID); Z79.82 Long term (current) use of aspirin; Z79.899 Other long term (current) drug therapy
CPT/HCPCS: 64635; 64636; J2250; J2001; J3010; J2795

== ENCOUNTER → 2021-02-03 | Outpatient (CLI) | payer MEDICARE, OTHER ==
[2021-02-03 10:29] VITALS: BP 152/87; PULSE 81; RESP 18; TEMP 98.5
--- NOTE | 2021-02-03 10:55 | P.PAINPG ---
Subjective Progress Note Date: 02/02/21 This is a follow visit for this 65 years old female with a chronic history of severe mid back pain patient ,diagnosed with thoracic spondylosis with thoracic facet arthropathy, previousley we did RFA medial branch block thoracic area,T8 ,T9 ,T10 ,T11 , she had MRI of the thoracic spine done previously which showed that she had thoracic scoliosis, and she had compression fracture at L1 level, patient also had low back pain , she is diagnosed with lumbar spondylosis and sacroiliitis previously we have done RFA of the medial branch lumbar area and sacroiliac joint steroid injection, currently most of the pain is localized in the low back area is increased with any activity, severe and localized in the low back area with radiation to the buttock bilaterally,it is continuous interfere with the quality of life increases with any movement, she continued to use Percocet 10/325 every 6 hours when necessary and Lyrica 300 mg twice a day, and Zanaflex when necessary, he denies any side effect of the medication she denies any excessive drowsiness or sleepiness and she denies any fever or night sweats with and there is no change in the bowel movement or urinations, last visit we ordered MRI of the lumbar spine and it showed that she had compression fracture in L1 and also she had multilevel degenerative disc disease and multilevel lumbar spondylosis with lumbar facet arthropathy. Most recently she had bilateral L4-5 and L5-S1 RFA. He notes that the RFA that she got recently might have made her pain worse although it only been 12 days since then. She is accompanied by her who feels that overall the procedure has been helpful for her. She says that right now her pain is mostly concentrated within what she calls her sciatic nerve. When I asked her to clarify she notes that there is pain over her buttocks with extension into the posterior aspect of the legs stopping at the knees. Hurts to sit and do any physical activity. It gets better with her medication and rest. Physical Examinations : -Constitutiona : Cooperative , not in acute distress . -HEENT : nech : supple , no Lymphadenopathy , normal thyroid size . : eyes : no ptosis , no icterus, no photophobia . - neurologic : Cranial nerve II to XII intact , no focal neurological deffecit . -psychatric : alert , oriented X 3 , appropriate affect , intact judgment and insight . -Lymphatic : no Lymphadenopathy . - musculoskeltal : Lumber spine moter stegnth lower extremities ,thigh and legs 5/5 Right side , 5/5 Left side deep tendon reflexes : normal Knee Jerk , normal ankle Jerk lumber facet Loading Test =positive Right , positive Left Range of motion of the lumbar spine Flexion 30 degrees, extension 10 degrees strait leg raising test = positive at 30 degree Fabere test= positive Right , and positive LT . Sever tenderness over the Sacroiliac joint on the Right , and Left sides Gaenslen test= positive right ,and positive left . Seated flexion test= positive right ,and positive Left . Distraction test= positive bilaterally Sacroiliac compression test= positive bilaterally Assessment and plan= Chronic severe mid back pain secondary to thoracic spondylosis with thoracic facet arthropathy. chronic low back pain secondary to lumbar degenerative disc disease , lumbar spondylosis with lumbar facet arthropathy . she had increased pain in the low back area which is interfering with the quality of life chronic and current use of high-risk medication (opioids) Patient denies any side effects of the current pain medication and the current treatment/medication helping the patient to do activity of daily living , Diagnoses, prognosis, treatment options, including but not limited to physical therapy, medication management, interventional therapies, and surgery, were discussed with the patient All the questions answered Patient had no benefit from trigger point injection The narcotic consent was signed and patient agreed and understood the side effects and complications of opioid treatment. Patient signed the narcotic agreement, and was orally counseled, not to overuse, not to abuse, not to Divert , not tp sell pain medication, and to take it as prescribed only, Patient was counseled not to drive or operate heavy equipment while using narcotic medication, and advised not to use alcohol or any Illicit drugs while using the narcotis. understanding that lack of compliance with any of the above instructions, will likely to cause discharge from, the pain service, not to renew his narcotic prescriptions MAPS Reviwed and it was apropriate . Refill medications for 2 months. I told her it is too early to tell if her radio frequency ablations have been helpful for her. Although she goes back and forth in saying that it helped versus it did not help. She has had sacroiliac joint injections in the past which she says were helpful so we can consider repeating those. I did review her recent lumbar MRI and it showed only mild spinal canal stenosis throughout the spine so I do not believe that an epidural would be helpful at this time. - PQRS measures = - Patient's medications are documented in the chart. -Tobacco use is positive ,and counseling.Given. -Patient's has received pneumococcal vaccine. -Advanced care planning discussed, patient not eligible. -Opiate contract signed. -Pain positive and follow-up visit/procedure is scheduled. -Patient's blood pressure measured [ 162/90] , and documented in the record ,and patient will follow up with the primary care. -Patient's weight was measured and body mass index [26.5 ] above the normal limits and counseling was done. and patient instructed to follow-up with the primary care physician. -Patient was not identified as an unhealthy alcohol user I have spent 25 minutes on review of the records, review of the imaging available, [id number] interaction with the patient, medication management, follow-up care coordination and record creation. Objective - Vital Signs Vital signs: Intake & Output 02/01/21 02/02/21 02/02/21 18:59 06:59 18:59 Weight 67.132 kg PQRS Measure Charge Sheet PQRS Narrative: Smoking Status Former smoker Narcotic Agreement Date Signed 02/05/20 Pain Intensity [Back] 9 Scale Used Numeric (1 - 10) Hx Alcohol Use (MH) No Home Medications: Ambulatory Orders DULoxetine HCL [Cymbalta] 120 mg PO DAILY 11/30/18 Furosemide [Lasix] 20 mg PO DAILY 11/30/18 Insulin Detemir [Levemir Flextouch] 10 units SQ HS 11/30/18 amLODIPine [Norvasc] 10 mg PO DAILY 11/30/18 lisinopriL [Zestril] 40 mg PO DAILY 11/30/18 metFORMIN HCL [Glucophage] 1,000 mg PO BID 11/30/18 Albuterol Sulfate [Proair Hfa] 1 - 2 puff INHALATION QID PRN 03/16/19 Atorvastatin [Lipitor] 80 mg PO HS 04/11/19 Omeprazole [PriLOSEC] 20 mg PO AC-BID 04/11/19 Potassium Chloride 10 meq PO BID 04/11/19 Aspirin [Adult Low Dose Aspirin EC] 81 mg PO DAILY 04/30/19 Brimonidine Tartrate [Alphagan P 0.2% Oph Soln] 1 drops LEFT EYE BID PRN 05/06/19 Metoprolol Tartrate [Lopressor] 25 mg PO BID 05/30/19 Ferrous Sulfate [Feosol] 325 mg PO DAILY 10/03/19 Ibuprofen [Motrin Ib] 200 mg PO Q8H PRN 12/17/19 Calcium 1,200 mg PO DAILY 08/10/20 Ergocalciferol (Vitamin D2) [Vitamin D2 (2000 Iu)] 50 mcg PO DAILY 08/10/20 Loratadine [Claritin] 10 mg PO DAILY PRN 08/10/20 Pregabalin [Lyrica] 300 mg PO BID 30 Days #60 cap 02/03/21 oxyCODONE HCL/ACETAMINOPHEN [Percocet 10-325 mg] 1 tab PO Q6HR PRN 30 Days #110 tab 02/03/21 oxyCODONE HCL/ACETAMINOPHEN [Percocet 10-325 mg] 1 tab PO Q6HR PRN 30 Days #110 tab 02/03/21 tiZANidine [Zanaflex] 4 mg PO Q8HR PRN #90 tab 02/03/21 Controlled Substance Measures - Controlled Substance Measures Is patient prescribed a controlled substance at discharge?: Yes When asked, does pt state using other controlled substances?: No If prescribed controlled substance>3 days was MAPS reviewed?: Yes If Rx opioid, was Start Talking consent form obtained?: Yes If opioid is for acute pain is fill amount 7 days or less?: No Was information provided regarding opioid addiction?: Yes
== END ==
LOC: PNWHC3 10:14
PROVIDERS: ATTEND Anesthesiology
DX: M47.814 Spondylosis without myelopathy or radiculopathy, thoracic region (principal); M47.816 Spondylosis without myelopathy or radiculopathy, lumbar region; M51.36 Other intervertebral disc degeneration, lumbar region; G89.29 Other chronic pain; Z79.891 Long term (current) use of opiate analgesic; Z87.891 Personal history of nicotine dependence; Z88.5 Allergy status to narcotic agent; Z91.048 Other nonmedicinal substance allergy status; Z88.6 Allergy status to analgesic agent; Z88.2 Allergy status to sulfonamides; Z88.1 Allergy status to other antibiotic agents
CPT/HCPCS: 80307; G0482; G0463; 99212

== ENCOUNTER → 2021-02-26 | Outpatient (CLI) | payer MEDICARE, OTHER ==
--- NOTE | 2021-02-26 20:04 | CTL ---
EXAMINATION TYPE: CT Low Dose Lung DATE OF EXAM ORDERED: 02/26/2021 HISTORY: Personal history of nicotine dependence. Lung cancer screening CT DLP: [address] CTDI: 2.33 mGy Automated exposure control for dose reduction was used. SCREENING VISIT: Initial COMPARISON: None TECHNIQUE: Low dose computed tomography scan was performed through the chest at 1 mm thick sections a nd reconstructed images in the coronal plane at [address] DIAGNOSTIC QUALITY: Satisfactory FINDINGS: LUNG NODULES: None. LUNGS: COPD: Severity: Mild Fibrosis: Severity: None Lymph nodes: Calcified left hilar lymph nodes. Other findings: Calcified granuloma in the left lung. Mild central bronchial wall thickening. RIGHT PLEURAL SPACE: Effusion: None Calcification: None Thickening: None Pneumothorax: None LEFT PLEURAL SPACE: Effusion: None Calcification: None Thickening: None Pneumothorax: None HEART: Heart Size: Normal Coronary calcification: Moderate Pericardial effusion: None OTHER FINDINGS: Upper abdomen: Calcified granulomas in the liver and spleen. Bony thorax: Unremarkable Supraclavicular region: Within normal limits Other: Pectus deformity. IMPRESSION: No suspicious lung nodules. CT LUNG RAD AND CT CHEST RECOMMENDATION: Lung-Rad 1 Negative: Continue annual screening with LDCT in 12 months. S Modifier (other clinically significant findings): None
== END | disposition home or self-care (01) ==
LOC: RADCTMAIN 12:10
PROVIDERS: ATTEND Family Medicine
DX: Z12.2 Encounter for screening for malignant neoplasm of respiratory organs (principal); Z87.891 Personal history of nicotine dependence
CPT/HCPCS: 71271

== ENCOUNTER 2021-03-02 06:41 | Day surgery (SDC) | payer MEDICARE, OTHER ==
[2021-02-26 15:20] VITALS: BMI 27.2
[2021-03-02] MEDS ORDERED: LIDOCAINE 1% (10MG/ML) FOR IV START INTRADERMA ONE (08:02)
[2021-03-02 08:04] VITALS: TEMP 96.9
[2021-03-02 08:06] LABS: Glucose,Whole Blood 141 mg/dL (75-99)
[2021-03-02] MEDS ORDERED: fentaNYL (PF) 50 MCG/ML 2 ML AMP ONE (08:19)
[2021-03-02] MEDS ORDERED: ROPIVACAINE 5MG/ML 20ML VIAL ONE (08:19)
[2021-03-02] MEDS ORDERED: methylPREDNISolone ACETATE 40 MG/ML 1 ML VIAL ONE (08:19)
[2021-03-02] MEDS ORDERED: MIDAZOLAM 2 MG/2 ML VIAL ONE (08:19)
--- NOTE | 2021-03-02 08:37 | P.PCN ---
Date of Procedure: 03/02/21 Procedure(s) Performed: Procedure= bilateral sacroiliac joints steroid injection under fluoroscopy guidance (fluoroscopy image stored on file in the radiology Department ) Preoperative diagnosis= 1-sacroiliitis 2-lumbar spondylosis with facet arthropathy Postoperative diagnosis=Same as preop Diagnosis . Complication = none Condition= stable Anesthesia= moderate sedation with intravenous Versed 2 mg , and fentanyl 100 micrograms . Indication for the procedure= patient complaining of low back pain , examination was positive for severe tenderness over the sacroiliac joints bilaterally and patient diagnosed with sacroiliitis, for this reason he/ she was good candidate for sacroiliac joint steroid injection. Description of the procedure= procedure risk and benefits discussed with the patient, including but not limited, risk of infection and bleeding, and ALLERGIC reaction to the medication and not complete pain relief and patient agreed with the preceding patient taken to the operating room, placed in prone position or standard monitors applied to the patient then after induction of anesthesia back prepped with chlorhexidine 3 times , Then under strict sterile technique, first I did the right sacroiliac joint the which was identified under fluoroscopy guidance been local infiltration of the skin and subcu interstitial with lidocaine 1% then 22-gauge Quincke Needle advanced slowly under fluoroscopy and placed in the right sacroiliac joint needle placement confirmed with AP and oblique and lateral view and after appropriate needle placement confirmed and after negative aspiration, or heme , then Ropivacaine 0.5% 4 mL, and 20 mg of Depo-Medrol mixed together and injected in the right sacroiliac joint after negative aspiration patient tolerated the procedure well without any complication. Then the left sacroiliac joint steroid injection done under strict sterile techn ique local infiltration of the skin and subcu interstitial at the location of the left sacroiliac joint then a 22-gauge Quincke Needle advanced slowly under fluoroscopy time placed in the left sacroiliac joint, needle placement confirmed with AP and oblique and lateral view then after appropriate needle placement confirmed and after negative aspiration 0.5% Ropivacaine 4 mL and 20 mg of Depo-Medrol injected in the left sacroiliac joint after negative aspiration patient tolerated the procedure well that any complications and she will follow up in clinic 3 weeks
[2021-03-02] MEDS ORDERED: IV FLUID CONTINUATION 800 ML IV ONE (08:41)
--- NOTE | 2021-03-02 08:50 | FL ---
EXAMINATION TYPE: FL guided pain mgmt statistic DATE OF EXAM: 03/02/2021 HISTORY: Fluoroscopy time 7 seconds of fluoroscopy provided. IMPRESSION: 1. Fluoroscopy time.
[2021-03-02 09:02] VITALS: BP 109/56; PULSE 74; RESP 20
== END 2021-03-02 09:20 | disposition home or self-care (01) ==
LOC: ORPAIN 06:41
PROVIDERS: ATTEND Specialist
DX: M46.1 Sacroiliitis, not elsewhere classified (principal); M47.817 Spondylosis without myelopathy or radiculopathy, lumbosacral region; Z88.1 Allergy status to other antibiotic agents; Z88.2 Allergy status to sulfonamides
CPT/HCPCS: J2250; J1030; J3010; J2795; G0260; 99152

== ENCOUNTER → 2021-03-31 | Outpatient (CLI) | payer MEDICARE, OTHER ==
[2021-03-31 10:13] VITALS: BP 134/84; PULSE 80; RESP 18; TEMP 98.3
--- NOTE | 2021-03-31 10:21 | P.PN ---
Subjective Progress Note Date: 03/31/21 This is a 66-year-old lady with history of chronic mid and lower back pain. The patient's pain has been well-controlled with a combination of intervention pain procedures and oral Percocet. The patient's pain is mostly axial in the lower back area with radiation to the right buttock only. She denies any paresthesia or weakness in the lower extremities she also denies any bowel or bladder dysfunction. Him to cut down on her tobacco use. Patient denies new- onset weakness, bowel/bladder incontinence, or any other signs or symptoms of cauda equina syndrome. There are no signs of acute intoxication, and no indications of medication diversion or overuse. In addition to above, 13-point review of systems is also negative for chest pain, shortness of breath, changes in vision, changes in hearing, new onset weakness, abdominal pain, diarrhea, extreme fatigue, malaise, fever, skin changes, homicidal or suicidal ideation, or bowel or bladder incontinence. Vital Signs: Reviewed in EMR Gen: AAOx3, NAD HEENT: PERRLA,hearing grossly normal Pulm: resp unlabored Neck: supple, trachea midline Neuro exam of the lower extremities: Within normal limits for muscle strength Tenderness in the paravertebral musculature: Positive in the lumbar area bilaterally Neuro: CN II-XII grossly intact, Imaging: Reviewed in EMR/chart Assessment: Thoracic and lumbar spondylosis without myelopathy Diabetes Tobacco dependence Plan: 1. Explanation: When patients on opioids, opioid and psychological risk scores were reviewed. Diagnoses, prognoses, and multiple treatment options including but not limited to physical therapy, interventional therapies, adjuvant medical therapies, narcotic medication therapies, and surgery were discussed with the patient and all questions were answered to the patient's satisfaction. 2. Opioid agreement:When patients are prescribed opoids through our clinic, opioid agreement is signed with the patient and the patient is warned not to use opioids while driving or before driving and not to combine opioids with benzodiazepines or alcohol. 3. Counseling: When patient is smoking or obese, the patient was counseled extensively on SMOKING CESSATION, BODY MASS INDEX, EXERCISE. Specifically, the patient was instructed regarding the importance of smoking cessation, obesity, and exercise in the context of both chronic pain and overall health. 4. Procedures: None for now 5. Consultations: None 6. Investigations: None 7. Medications: Continue Percocet 10 mg every 6 hours when necessary pain #110 pills with no refills, continue Lyrica 300 mg twice a day #60 pills no refills, continue Zanaflex 4 mg 3 times a day #90 pills with no refills. 8. Disposition: Return to clinic in 4 weeks 9. Maps were reviewed and were appropriate. PQRS measures: 1-Patient's medications are documented in the chart. 2-Tobacco use is positive, counseling given 3-Patient has had a pneumococcal vaccine. 4-Advanced care planning discussed, patient unable to give 5-Opioid contract signed with the patient. 6-Pain positive, follow-up visit or procedure scheduled 7-Patient's blood pressure measured and documented normal limits. The patient will follow up with his primary care physician. 8-Patient's weight was measured, and body mass index ABOVE the normal limits, and counseling was done. Patient instructed to follow up with PCP. 9-Patient WAS NOT identified as an unhealthy alcohol user. Controlled Substance Measures Is patient prescribed a controlled substance at discharge?: Yes When asked, does pt state using other controlled substances?: No If prescribed controlled substance>3 days was MAPS reviewed?: Yes If Rx opioid, was Start Talking consent form obtained?: Yes If opioid is for acute pain is fill amount 7 days or less?: No Was information provided regarding opioid addiction?: Yes Objective - Vital Signs Vital signs: Vital Signs Temp 98.3 F 03/31/21 10:07 Pulse 80 03/31/21 10:07 Resp 18 03/31/21 10:07 BP 134/84 03/31/21 10:07 Pulse Ox 95 03/31/21 10:07
== END ==
LOC: PNWHC3 09:51
PROVIDERS: ATTEND Anesthesiology
DX: M47.816 Spondylosis without myelopathy or radiculopathy, lumbar region (principal); M47.814 Spondylosis without myelopathy or radiculopathy, thoracic region; E11.9 Type 2 diabetes mellitus without complications; F17.200 Nicotine dependence, unspecified, uncomplicated; Z79.84 Long term (current) use of oral hypoglycemic drugs; Z88.2 Allergy status to sulfonamides; Z88.5 Allergy status to narcotic agent; Z88.6 Allergy status to analgesic agent; Z88.1 Allergy status to other antibiotic agents; Z91.048 Other nonmedicinal substance allergy status; Z87.891 Personal history of nicotine dependence
CPT/HCPCS: 99211

== ENCOUNTER → 2021-04-28 | Outpatient (CLI) | payer MEDICARE, OTHER ==
[2021-04-28 10:22] VITALS: BP 112/80; PULSE 86; RESP 18; TEMP 98.5
--- NOTE | 2021-04-28 15:48 | P.PN ---
Subjective Progress Note Date: 04/28/21 This is a follow visit for this 66 years old female with a chronic history of severe mid back pain patient ,and low back pain , she is diagnosed with thoracic spondylosis with thoracic facet arthropathy, lumbar spondylosis with lumbar facet arthropathy, bilateral sacroiliitis, previousley we did RFA medial branch block thoracic area,T8 ,T9 ,T10 ,T11 , she had MRI of the thoracic spine done previously which showed that she had thoracic scoliosis, and she had compression fracture at L1 level, currently most of the pain is localized in the low back area is increased with any activity, severe and localized in the low back area with radiation to the buttock bilaterally,it is continuous ,interfere with the quality of life, increases with any movement, she continued to use Percocet 10/325 every 6 hours when necessary and Lyrica 300 mg twice a day, and Zanaflex when necessary, he denies any side effect of the medication she denies any excessive drowsiness or sleepiness and she denies any fever or night sweats with and there is no change in the bowel movement or urinations, last visit we ordered MRI of the lumbar spine and it showed that she had compression fracture in L1 and also she had multilevel degenerative disc disease and multilevel lumbar spondylosis with lumbar facet arthropathy Physical Examinations : -Constitutiona : Cooperative , not in acute distress . -HEENT : nech : supple , no Lymphadenopathy , normal thyroid size . : eyes : no ptosis , no icterus, no photophobia . - neurologic : Cranial nerve II to XII intact , no focal neurological deffecit . -psychatric : alert , oriented X 3 , appropriate affect , intact judgment and insight . -Lymphatic : no Lymphadenopathy . - musculoskeltal : Lumber spine moter stegnth lower extremities ,thigh and legs 5/5 Right side , 5/5 Left side deep tendon reflexes : normal Knee Jerk , normal ankle Jerk lumber facet Loading Test =positive Right , positive Left Range of motion of the lumbar spine Flexion 30 degrees, extension 10 degrees strait leg raising test = positive at 30 degree Fabere test= positive Right , and positive LT . Sever tenderness over the Sacroiliac joint on the Right , and Left sides Gaenslen test= positive right ,and positive left . Seated flexion test= positive right ,and positive Left . Distraction test= positive bilaterally Sacroiliac compression test= positive bilaterally Assessment and plan= Chronic severe mid back pain secondary to thoracic spondylosis with thoracic facet arthropathy. chronic low back pain secondary to lumbar degenerative disc disease , lumbar spondylosis with lumbar facet arthropathy . Bilateral sacroiliitis she had increased pain in the low back area which is interfering with the quality of life chronic and current use of high-risk medication (opioids) Patient denies any side effects of the current pain medication and the current treatment/medication helping the patient to do activity of daily living , Diagnoses, prognosis, treatment options, including but not limited to physical therapy, medication management, interventional therapies, and surgery, were discussed with the patient All the questions answered Patient had no benefit from trigger point injection The narcotic consent was signed and patient agreed and understood the side effects and complications of opioid treatment. Patient signed the narcotic agreement, and was orally counseled, not to overuse, not to abuse, not to Divert , not tp sell pain medication, and to take it as prescribed only, Patient was counseled not to drive or operate heavy equipment while using narcotic medication, and advised not to use alcohol or any Illicit drugs while using the narcotis. understanding that lack of compliance with any of the above instructions, will likely to cause discharge from, the pain service, not to renew his narcotic prescriptions MAPS Reviwed and it was apropriate . Medication managements= she had prescription refill for Percocet 10/325 every 6 hours dispense 110, with 1 refill and Lyrica 300 mg twice a day dispense 60 with 1 refill Interventions= patient could benefit from bilateral sacroiliac joint steroid injections under fluoroscopy guidance - PQRS measures = - Patient's medications are documented in the chart. -Tobacco use is positive ,and counseling.Given. -Patient's has received pneumococcal vaccine. -Advanced care planning discussed, patient not eligible. -Opiate contract signed. -Pain positive and follow-up visit/procedure is scheduled. -Patient's blood pressure measured [ 110/80] , and documented in the record ,and patient will follow up with the primary care. -Patient's weight was measured and body mass index [27 ] above the normal limits and counseling was done. and patient instructed to follow-up with the primary care physician. -Patient was not identified as an unhealthy alcohol user Objective - Vital Signs Vital signs: Vital Signs Temp 98.5 F 04/28/21 10:20 Pulse 86 10/13/21 10:20 Resp 18 04/28/21 10:20 BP 112/80 04/28/21 10:20 Pulse Ox 95 04/28/21 10:20
== END ==
LOC: PNWHC3 09:59
PROVIDERS: ATTEND Specialist
DX: M47.814 Spondylosis without myelopathy or radiculopathy, thoracic region (principal); M51.36 Other intervertebral disc degeneration, lumbar region; M47.816 Spondylosis without myelopathy or radiculopathy, lumbar region; M46.1 Sacroiliitis, not elsewhere classified; G89.29 Other chronic pain; Z79.891 Long term (current) use of opiate analgesic; Z87.891 Personal history of nicotine dependence; Z88.6 Allergy status to analgesic agent; Z88.1 Allergy status to other antibiotic agents; Z88.2 Allergy status to sulfonamides; Z88.5 Allergy status to narcotic agent; Z91.048 Other nonmedicinal substance allergy status
CPT/HCPCS: 80307; G0482; G0463; 99211

== ENCOUNTER → 2021-06-22 | Day surgery (SDC) | payer MEDICARE, OTHER ==
[2021-06-18 15:22] VITALS: BMI 27.4
[~2021-06-22] MED LIST changes: +.fentaNYL (PF) 50 MCG/ML 2 ML AMP ONE; +MIDAZOLAM 2 MG/2 ML VIAL ONE; +ROPIVACAINE 5MG/ML 20ML VIAL ONE; +methylPREDNISolone ACETATE 40 MG/ML 1 ML VIAL ONE
[2021-06-22 09:04] VITALS: TEMP 97.7
[2021-06-22 09:10] LABS: Glucose,Whole Blood 145 mg/dL (75-99)
--- NOTE | 2021-06-22 09:45 | P.PCN ---
Date of Procedure: 06/22/21 Procedure(s) Performed: Procedure= bilateral sacroiliac joints steroid injection under fluoroscopy guidance (fluoroscopy image stored on file in the radiology Department ) Preoperative diagnosis= 1-sacroiliitis 2-lumbar spondylosis with facet arthropathy Postoperative diagnosis=Same as preop Diagnosis . Complication = none Condition= stable Anesthesia= moderate sedation with intravenous Versed 2 mg , and fentanyl 100 micrograms . Indication for the procedure= patient complaining of low back pain , examination was positive for severe tenderness over the sacroiliac joints bilaterally and patient diagnosed with sacroiliitis, for this reason , she was good candidate for sacroiliac joint steroid injection. Description of the procedure= procedure risk and benefits discussed with the patient, including but not limited, risk of infection and bleeding, and ALLERGIC reaction to the medication and not complete pain relief and patient agreed with the preceding patient taken to the operating room, placed in prone position or standard monitors applied to the patient then after induction of anesthesia back prepped with chlorhexidine 3 times , Then under strict sterile technique, first I did the right sacroiliac joint the which was identified under fluoroscopy guidance been local infiltration of the skin and subcu interstitial with lidocaine 1% then 22-gauge Quincke Needle advanced slowly under fluoroscopy and placed in the right sacroiliac joint needle placement confirmed with AP and oblique and lateral view and after appropriate needle placement confirmed and after negative aspiration, or heme , then Ropivacaine 0.5% 4 mL, and 20 mg of Depo-Medrol mixed together and injected in the right sacroiliac joint after negative aspiration patient tolerated the procedure well without any complication. Then the left sacroiliac joint steroid injection done under strict sterile technique local infiltration of the skin and subcu interstitial at the location of the left sacroiliac joint then a 22-gauge Quincke Needle advanced slowly under fluoroscopy time placed in the left sacroiliac joint, needle placement confirmed with AP and oblique and lateral view then after appropriate needle placement confirmed and after negative aspiration 0.5% Ropivacaine 4 mL and 20 mg of Depo-Medrol injected in the left sacroiliac joint after negative aspiration patient tolerated the procedure well that any complications and she will follow up in clinic 3 weeks
[2021-06-22 10:05] VITALS: BP 120/74; PULSE 77; RESP 17
[2021-06-22 10:22] LABS: Glucose,Whole Blood 122 mg/dL (75-99)
--- NOTE | 2021-06-22 12:03 | FL ---
EXAMINATION TYPE: FL guided pain mgmt statistic DATE OF EXAM: 06/22/2021 HISTORY: Fluoroscopy time 4 seconds of fluoroscopy provided. IMPRESSION: 1. Fluoroscopy time.
== END ==
LOC: ORPAIN 08:43
PROVIDERS: ATTEND Specialist
DX: M46.1 Sacroiliitis, not elsewhere classified (principal); M47.816 Spondylosis without myelopathy or radiculopathy, lumbar region
CPT/HCPCS: J2250; J1030; J3010; J2795; G0260; 99152

== ENCOUNTER → 2021-09-15 | Outpatient (CLI) | payer MEDICARE, OTHER ==
--- NOTE | 2021-09-15 10:30 | P.PN ---
Subjective Progress Note Date: 09/15/21 Principal diagnosis: A 66 yr old female with a history of severe and chronic low back pain secondary to lumbar degenerative disc diseases and lumbar spondylosis with facet arthropathy presents today for medication refills. Pain level waxes and wanes throughout the day but is generally 6 out of 10 in intensity, dull, achy in the lower lumbar spine with occasional radiation to the bilateral lower extremities. Pain is provoked by bending, lifting and weightbearing. Pain is alleviated with medications, injections, heat, rest, physical therapy in the past, repositioning and rest. Procedures in the past include BL SI joint injection in Jun, 2021. Patient is currently on oxycodone 10/325 #110, Lyrica 300 mg #60, Zanaflex 4 mg #90 when necessary, Motrin 800 mg #60 when necessary Patient denies any side effects of the medication(s), denies excessive drowsiness or sleepiness, denies suicidal ideation and reports that the current pain medication is helping to control the pain and improve activities of daily living. Patient denies any motor or sensory deficits. Patient denies any fever or night sweats, denies any change in the bowel movements or urination. Physical Examination: -Constitutional: Cooperative. Not in acute distress . -HEENT: Neck is supple. No lymphadenopathy. No thyromegaly. Normal thyroid size. Eyes: No ptosis , no icterus, no photophobia. ENT: No auditory deficits. Normal oropharynx. No Thrush. - Respiratory: Chest clear to auscultations bilaterally. No wheezing. No rhonchi. - Cardiovascular: Regular rate and rhythm. S1 / S2 , no S3 , no S4. - Gastrointestinal: Abdomen soft no tenderness. Bowel sounds positive in all four quadrants. No organomegaly. - Genitourinary: Deferred. - Neurologic: Cranial nerve II to XII intact. No focal neurological deficits. - Psychatric: Alert & oriented x 3. Matching mood & appropriate affect. Judgment and insight intact. - Lymphatic: No Lymphadenopathy. - Musculoskeletal: Cervical spine: Muscle bulk/ tone/ strength in the bilateral upper extremities normal. Facet loading test cervical area positive. Lumbar spine: Motor bulk/ tone/ strength lower extremities , thigh and legs : 5/5 Deep tendon reflexes : Normal Knee Jerk. Normal Ankle Jerk . Vertebral body tenderness to palpation over Lumbar Facet Loading Test positive L4, L5 with accompanying paraspinal muscle spasms Straight Leg Raise: positive at 30 degrees right side/ left side Gaenslen's Test positive Sacral spine : Severe tenderness over the Sacroiliac joint: right side / left side Range of motion: Flexion of the lumbar spine <60 degrees Range of motion: Extension of the lumbar spine <20 degrees Gaenslen's Test positive Rowan test: positive right side / left side Assessment and plan: Chronic low back pain secondary to lumbar degenerative disc disease , lumbar spondylosis with facet arthropathy without myelopathy Chronic and current use of high-risk medication (Opioids). The patient was counseled about risk of opioid use, psychological risk associated with opioids and was orally counseled to not overuse , divert or sell medications. Pt is to store medication in a safe location. The patient is counseled against driving while using narcotic medications and also not to use alcohol or any illicit recreational drugs. Patient verbalized understanding that the lack of compliance will result in failure to renew narcotic prescription(s) as well as possible discharge from the clinic Diagnoses, prognosis and treatment options including but not limited to physical therapy, surgical interventions, interventional therapies and medication management including narcotics and adjuvant medication were discussed. All patient questions answered MAPS reviewed and it was appropriate. UDS reviewed and was consistent. Prescription refill for Percocet 10/325 #110 with 1 refill, Lyrica 300 mg #60 with 1 refill, Zanaflex 4 mg #90 with 1 refill, Motrin 800 mg #60 with 1 refill. I have spent 31 minutes on patient care today. Dr Pedraza was available by phone for the evaluation of this patient. The time was used to review the medical records including relevant urine studies and Prescription history (MAPs), review of the available imaging, evaluation and examination of the patient, coordination of care with the medical staff and if applicable referring physicians, as well as creation of the medical record PQRS Measure Charge Sheet PQRS Narrative: Smoking Status Former smoker Narcotic Agreement Date Signed 02/03/21 Hx Alcohol Use (MH) No Home Medications: Ambulatory Orders DULoxetine HCL [Cymbalta] 120 mg PO DAILY 11/30/18 Furosemide [Lasix] 20 mg PO DAILY 11/30/18 Insulin Detemir [Levemir Flextouch Pen] 10 units SQ HS 11/30/18 amLODIPine [Norvasc] 10 mg PO DAILY 11/30/18 lisinopriL [Zestril] 40 mg PO DAILY 11/30/18 metFORMIN HCL [Glucophage] 1,000 mg PO BID 11/30/18 Albuterol Sulfate [Proair Hfa] 1 - 2 puff INHALATION QID PRN 03/16/19 Atorvastatin [Lipitor] 80 mg PO HS 04/11/19 Omeprazole [PriLOSEC] 20 mg PO AC-BID 04/11/19 Potassium Chloride [Potassium Chloride ER] 10 meq PO BID 04/11/19 Aspirin [Adult Low Dose Aspirin EC] 81 mg PO DAILY 04/30/19 Brimonidine Tartrate [Alphagan P 0.2% Oph Soln] 1 drops LEFT EYE BID PRN 05/06/19 Metoprolol Tartrate [Lopressor] 25 mg PO BID 05/30/19 Ferrous Sulfate [Feosol] 325 mg PO DAILY 10/03/19 Calcium 1,200 mg PO DAILY 08/10/20 Loratadine [Claritin] 10 mg PO DAILY PRN 08/10/20 Ibuprofen [Motrin Ib] 800 mg PO Q8H PRN 30 Days #90 tab 09/15/21 Pregabalin [Lyrica] 300 mg PO BID 30 Days #60 cap 09/15/21 oxyCODONE HCL/ACETAMINOPHEN [Percocet 10-325 mg] 1 tab PO Q6HR PRN 30 Days #110 tab 09/15/21 oxyCODONE-APAP 10-325MG [Percocet 10-325 mg] 1 tab PO Q6HR PRN 30 Days #110 tab 09/15/21 tiZANidine [Zanaflex] 4 mg PO Q8HR PRN 30 Days #90 tab 09/15/21
[2021-09-15 11:14] VITALS: BP 132/72; PULSE 72; RESP 18; TEMP 98.2
== END ==
LOC: PNWHC3 09:01
PROVIDERS: ATTEND Physician Assistant Medical
DX: G89.29 Other chronic pain (principal); M51.36 Other intervertebral disc degeneration, lumbar region; M47.816 Spondylosis without myelopathy or radiculopathy, lumbar region; Z79.891 Long term (current) use of opiate analgesic; Z87.891 Personal history of nicotine dependence; Z88.1 Allergy status to other antibiotic agents; Z88.2 Allergy status to sulfonamides; Z88.6 Allergy status to analgesic agent; Z88.5 Allergy status to narcotic agent; Z91.018 Allergy to other foods
CPT/HCPCS: 99211

== ENCOUNTER → 2021-11-10 | Outpatient (CLI) | payer MEDICARE, OTHER ==
--- NOTE | 2021-11-10 09:59 | P.PN ---
Subjective Progress Note Date: 11/10/21 Principal diagnosis: A 66 yr old female with a history of severe and chronic mid back pain secondary to thoracic degenerative disc diseases and spondylosis with facet arthropathy presents today for medication refills. Pain level is currently at 7 out of 10 in intensity, constant, sharp, stabbing pain in the middle aspect of her thoracic spine with radiation of pain to her left ribs. Pain has no provocative factors. Pain is alleviated with medications, topicals, ice, physi ye therapy years ago but she discontinued due to lack of insurance coverage, home-based stretching regimen, laying on her right side and rest. Patient is currently on Percocet 10/325, Lyrica 300 mg, Motrin, Zanaflex. Patient denies any side effects of the medication(s), denies excessive drowsiness or sleepiness, denies suicidal ideation and reports that the current pain medication is helping to control the pain and improve activities of daily living. Patient denies any motor or sensory deficits. Patient denies any fever or night sweats, denies any change in the bowel movements or urination. Physical Examination: -Constitutional: Cooperative. Not in acute distress . -HEENT: Neck is supple. No lymphadenopathy. No thyromegaly. Normal thyroid size. Eyes: No ptosis , no icterus, no photophobia. ENT: No auditory deficits. Normal oropharynx. No Thrush. - Respiratory: Chest clear to auscultations bilaterally. No wheezing. No rh onchi. - Cardiovascular: Regular rate and rhythm. S1 / S2 , no S3 , no S4. - Gastrointestinal: Abdomen soft no tenderness. Bowel sounds positive in all four quadrants. No organomegaly. - Genitourinary: Deferred. - Neurologic: Cranial nerve II to XII intact. No focal neurological deficits. - Psychatric: Alert & oriented x 3. Matching mood & appropriate affect. Judgment and insight intact. - Lymphatic: No Lymphadenopathy. - Musculoskeletal: Cervical spine: Muscle bulk/ tone/ strength in the bilateral upper extremities normal. Facet loading test cervical area positive. Thoracic spine: Tenderness to palpation over vetebral bodies T5-T8 with overlying paraspinal TTP Lumbar spine: Motor bulk/ tone/ strength lower extremities , thigh and legs : 5/5 Deep tendon reflexes : Normal Knee Jerk. Normal Ankle Jerk . Vertebral body tenderness to palpation over Lumbar Facet Loading Test positive Straight Leg Raise: positive at 30 degrees right side/ left side Gaenslen's Test positive Sacral spine : Severe tenderness over the Sacroiliac joint: right side / left side Range of motion: Flexion of the lumbar spine <60 degrees Range of motion: Extension of the lumbar spine <20 degrees Gaenslen's Test positive Rowan test: positive right side / left side Assessment and plan: Chronic mid back pain secondary to thoracic degenerative disc disease , spondylosis with facet arthropathy without myelopathy Chronic and current use of high-risk medication (Opioids). The patient was counseled about risk of opioid use, psychological risk associated with opioids and was orally counseled to not overuse , divert or sell medications. Pt is to store medication in a safe location. The patient is counseled against driving while using narcotic medications and also not to use alcohol or any illicit recreational drugs. Patient verbalized understanding that the lack of compliance will result in failure to renew narcotic prescription(s) as well as possible discharge from the clinic Diagnoses, prognosis and treatment options including but not limited to physical therapy, surgical interventions, interventional therapies and medication management including narcotics and adjuvant medication were discussed. All patient questions answered MAPS reviewed and it was appropriate. Urine for UDS collected today, 11/10/21 Prescription refill for Percocet 10/325 #110 1 refill, Lyrica 300mg #30 1 refill, Motrin and Zanaflex w 1 refill. I have spent 31 minutes on patient care today. Dr Pedraza was available by phone for the evaluation of this patient. The time was used to review the m edical records including relevant urine studies and Prescription history (MAPs), review of the available imaging, evaluation and examination of the patient, coordination of care with the medical staff and if applicable referring physicians, as well as creation of the medical record PQRS Measure Charge Sheet PQRS Narrative: Smoking Status Former smoker Narcotic Agreement Date Signed 02/03/21 Hx Alcohol Use (MH) No Home Medications: Ambulatory Orders DULoxetine HCL [Cymbalta] 120 mg PO DAILY 11/30/18 Furosemide [Lasix] 20 mg PO DAILY 11/30/18 Insulin Detemir [Levemir Flextouch Pen] 10 units SQ HS 11/30/18 amLODIPine [Norvasc] 10 mg PO DAILY 11/30/18 lisinopriL [Zestril] 40 mg PO DAILY 11/30/18 metFORMIN HCL [Glucophage] 1,000 mg PO BID 11/30/18 Albuterol Sulfate [Proair Hfa] 1 - 2 puff INHALATION QID PRN 03/16/19 Atorvastatin [Lipitor] 80 mg PO HS 04/11/19 Omeprazole [PriLOSEC] 20 mg PO AC-BID 04/11/19 Potassium Chloride [Potassium Chloride ER] 10 meq PO BID 04/11/19 Aspirin [Adult Low Dose Aspirin EC] 81 mg PO DAILY 04/30/19 Brimonidine Tartrate [Alphagan P 0.2% Oph Soln] 1 drops LEFT EYE BID PRN 05/06/19 Metoprolol Tartrate [Lopressor] 25 mg PO BID 05/30/19 Ferrous Sulfate [Feosol] 325 mg PO DAILY 10/03/19 Calcium 1,200 mg PO DAILY 08/10/20 Loratadine [Claritin] 10 mg PO DAILY PRN 08/10/20 Ibuprofen [Motrin Ib] 800 mg PO Q8H PRN 30 Days #90 tab 09/15/21 Pregabalin [Lyrica] 300 mg PO BID 30 Days #60 cap 09/15/21 oxyCODONE HCL/ACETAMINOPHEN [Percocet 10-325 mg] 1 tab PO Q6HR PRN 30 Days #110 tab 09/15/21 oxyCODONE-APAP 10-325MG [Percocet 10-325 mg] 1 tab PO Q6HR PRN 30 Days #110 tab 09/15/21 tiZANidine [Zanaflex] 4 mg PO Q8HR PRN 30 Days #90 tab 09/15/21
[2021-11-10 10:22] VITALS: BP 130/85; PULSE 82; RESP 18; TEMP 98.1
== END ==
LOC: PNWHC3 09:34
PROVIDERS: ATTEND Specialist
DX: M51.34 Other intervertebral disc degeneration, thoracic region (principal); M47.814 Spondylosis without myelopathy or radiculopathy, thoracic region; G89.29 Other chronic pain; Z79.891 Long term (current) use of opiate analgesic; Z87.891 Personal history of nicotine dependence; Z88.2 Allergy status to sulfonamides; Z88.6 Allergy status to analgesic agent; Z88.5 Allergy status to narcotic agent; Z91.048 Other nonmedicinal substance allergy status; Z88.1 Allergy status to other antibiotic agents
CPT/HCPCS: 80307; G0482; G0463; 99212

== ENCOUNTER → 2022-01-05 | Outpatient (CLI) | payer MEDICARE, OTHER ==
[2022-01-05 09:17] VITALS: BP 137/76; PULSE 81; RESP 16; TEMP 98.4
--- NOTE | 2022-01-05 09:20 | P.PAINPG ---
PQRS Measure Charge Sheet Comment: A 66 yr old female with a history of severe and chronic low back pain secondary to lumbar degenerative disc diseases and lumbar spondylosis with facet arthropathy presents today for medication refills and LBP/tailbone pain. Pain level is currently at 4/10 in intensity, throbbing in the lower aspect of the lumbar spine with radiation of pain to the inner groin, R >L but pain escalates as high as 9 out of 10 in intensity with twisting, sitting (for 30 min) and lifting. Pain is alleviated with medications, topicals, injections in the past, ice, physical therapy in the past, chiropractic treatments 3 years ago with little relief, daily home stretching regimen, use of a cane for ambulation, repositioning and rest. In a prior BL SI joint injection, she received 60% pain relief x 2 mo. Interventional pain procedures completed include BL SI injections, RFAs, TPIs Patient is currently on Percocet 10/325 #110, Lyrica 300 mg #60, Motrin #90, Zanaflex #60 Patient denies any side effects of the medication(s), denies excessive drowsiness or sleepiness, denies suicidal ideation and reports that the current pain medication is helping to control the pain and improve activities of daily living. Patient denies any motor or sensory deficits. Patient denies any fever or night sweats, denies any change in the bowel movements or urination. Physical Examination: -Constitutional: Cooperative. Not in acute distress . -HEENT: Neck is supple. No lymphadenopathy. No thyromegaly. Normal thyroid size. Eyes: No ptosis , no icterus, no photophobia. ENT: No auditory deficits. Normal oropharynx. No Thrush. - Respiratory: Chest clear to auscultations bilaterally. No wheezing. No rhonchi. - Cardiovascular: Regular rate and rhythm. S1 / S2 , no S3 , no S4. - Gastrointestinal: Abdomen soft no tenderness. Bowel sounds positive in all four quadrants. No organomegaly. - Genitourinary: Deferred. - Neurologic: Cranial nerve II to XII intact. No focal neurological deficits. - Psychatric: Alert & oriented x 3. Matching mood & appropriate affect. Judgment and insight intact. - Lymphatic: No Lymphadenopathy. - Musculoskeletal: Cervical spine: Muscle bulk/ tone/ strength in the bilateral upper extremities normal Vertebral body tenderness to palpation over Facet loading test positive Thoracic spine Muscle bulk / tone/ strength in the bilateral paraspinal muscles normal Vertebral body tender to palpation over Facet loading test positive Lumbar spine: Motor bulk/ tone/ strength lower extremities , thigh and legs : 5/5 Deep tendon reflexes : Normal Knee Jerk. Normal Ankle Jerk . Vertebral body tenderness to palpation over Lumbar Facet Loading Test positive Straight Leg Raise: positive at 30 degrees right side/ left side Gaenslen's Test positive Sacral spine : Severe tenderness over the Sacroiliac joint: right side / left side Range of motion: Flexion of the lumbar spine <60 degrees Range of motion: Extension of the lumbar spine <20 degrees Gaenslen's Test positive R side, mild on L Duke's Test positive R side, Mild on L Rowan test: positive right side / left side Thigh Thrust Test R > L Sacral Thrust Test R, mild on L Assessment and plan: Chronic low back pain secondary to lumbar degenerative disc disease , lumbar spondylosis with facet arthropathy without myelopathy, BL Sacroiliitis Recommendation of BL SI joint injection. May need a series, up to every 3 mo, for optimal pain relief. Risks, benefits of procedure discussed and pt verbalized understanding. Denies anticoagulant use or medical history of diabetes. Chronic and current use of high-risk medication (Opioids). The patient was counseled about risk of opioid use, psychological risk associated with opioids and was orally counseled to not overuse , divert or sell medications. Pt is to store medication in a safe location. The patient is counseled against driving while using narcotic medications and also not to use alcohol or any illicit recreational drugs. Patient verbalized understanding that the lack of compliance will result in failure to renew narcotic prescription(s) as well as possible discharge from the clinic Diagnoses, prognosis and treatment options including but not limited to physical therapy, surgical interventions, interventional therapies and medication management including narcotics and adjuvant medication were discussed. All patient questions answered MAPS reviewed and it was appropriate. UDS from 11/10/21 reviewed and consistent. Prescription refill for Percocet 10/325 #110, Lyrica 300 mg #60, Zanaflex #60 w 1 refill I have spent 31 minutes on patient care today. Dr Pedraza was available by phone for the evaluation of this patient. The time was used to review the medical records including relevant urine studies and Prescription history (MAPs), review of the available imaging, evaluation and examination of the patient, coordination of care with the medical staff and if applicable referring physicians, as well as creation of the medical record - Pain Location Lower Back Non-Pharmacological Interventions: Chiropractic Treatment, Home Exercise, Ice, Physical Therapy, Position/Reposition, Stretching Pharmacological Interventions: Block, PRN Medication, Scheduled Medication, Topical Medication Left Upper Abdomen Non-Pharmacological Interventions: Ice, Position/Reposition Pharmacological Interventions: PRN Medication, Scheduled Medication, Topical Medication PQRS Narrative: Smoking Status Former smoker Narcotic Agreement Date Signed 02/03/21 Hx Alcohol Use (MH) No Home Medications: Ambulatory Orders DULoxetine HCL [Cymbalta] 120 mg PO DAILY 11/30/18 Furosemide [Lasix] 20 mg PO DAILY 11/30/18 Insulin Detemir [Levemir Flextouch Pen] 10 units SQ HS 11/30/18 amLODIPine [Norvasc] 10 mg PO DAILY 11/30/18 lisinopriL [Zestril] 40 mg PO DAILY 11/30/18 metFORMIN HCL [Glucophage] 1,000 mg PO BID 11/30/18 Albuterol Sulfate [Proair Hfa] 1 - 2 puff INHALATION QID PRN 03/16/19 Atorvastatin [Lipitor] 80 mg PO HS 04/11/19 Omeprazole [PriLOSEC] 20 mg PO AC-BID 04/11/19 Potassium Chloride [Potassium Chloride ER] 10 meq PO BID 04/11/19 Aspirin [Adult Low Dose Aspirin EC] 81 mg PO DAILY 04/30/19 Brimonidine Tartrate [Alphagan P 0.2% Ophth Soln] 1 drops LEFT EYE BID PRN 05/06/19 Metoprolol Tartrate [Lopressor] 25 mg PO BID 05/30/19 Ferrous Sulfate [Feosol] 325 mg PO DAILY 10/03/19 Calcium 1,200 mg PO DAILY 08/10/20 Loratadine [Claritin] 10 mg PO DAILY PRN 08/10/20 Ibuprofen [Motrin Ib] 800 mg PO Q8H PRN 30 Days #90 tab 11/10/21 Pregabalin [Lyrica] 300 mg PO BID 30 Days #60 cap 01/05/22 oxyCODONE HCL/ACETAMINOPHEN [Percocet 10-325 mg] 1 tab PO Q6HR PRN 30 Days #110 tab 01/05/22 oxyCODONE-APAP 10-325MG [Percocet 10-325 mg] 1 tab PO Q6HR PRN 30 Days #110 tab 01/05/22 tiZANidine [Zanaflex] 4 mg PO Q8HR PRN 30 Days #90 tab 01/05/22 Controlled Substance Measures - Controlled Substance Measures Is patient prescribed a controlled substance at discharge?: Yes When asked, does pt state using other controlled substances?: Yes If prescribed controlled substance>3 days was MAPS reviewed?: Yes If Rx opioid, was Start Talking consent form obtained?: Yes If opioid is for acute pain is fill amount 7 days or less?: Yes Was information provided regarding opioid addiction?: Yes
== END ==
LOC: PNWHC3 08:45
PROVIDERS: ATTEND Specialist
DX: M51.36 Other intervertebral disc degeneration, lumbar region (principal); M47.816 Spondylosis without myelopathy or radiculopathy, lumbar region; G89.29 Other chronic pain; M46.1 Sacroiliitis, not elsewhere classified; Z79.891 Long term (current) use of opiate analgesic; Z87.891 Personal history of nicotine dependence; Z88.1 Allergy status to other antibiotic agents; Z88.2 Allergy status to sulfonamides; Z88.5 Allergy status to narcotic agent; Z91.048 Other nonmedicinal substance allergy status; Z88.6 Allergy status to analgesic agent
CPT/HCPCS: 99211

== ENCOUNTER 2022-02-10 08:11 | Day surgery (SDC) | payer MEDICARE, OTHER ==
[2022-02-08 16:43] VITALS: BMI 27.2
[~2022-02-10 08:11] MED LIST changes: -.fentaNYL (PF) 50 MCG/ML 2 ML AMP ONE; +LIDOCAINE 1% (10MG/ML) FOR IV START INTRADERMA PRN; -MIDAZOLAM 2 MG/2 ML VIAL ONE; -ROPIVACAINE 5MG/ML 20ML VIAL ONE; -methylPREDNISolone ACETATE 40 MG/ML 1 ML VIAL ONE
[2022-02-10 08:38] VITALS: TEMP 96.8
[2022-02-10 08:51] LABS: Glucose,Whole Blood 154 mg/dL (70-110)
[2022-02-10] MEDS ORDERED: ROPIVACAINE 5MG/ML 20ML VIAL ONE (09:07)
[2022-02-10] MEDS ORDERED: methylPREDNISolone ACETATE 40 MG/ML 1 ML VIAL ONE (09:07)
[2022-02-10] MEDS ORDERED: MIDAZOLAM 2 MG/2 ML VIAL ONE (09:07)
[2022-02-10] MEDS ORDERED: fentaNYL (PF) 50 MCG/ML 2 ML AMP ONE (09:07)
--- NOTE | 2022-02-10 09:22 | P.PCN ---
Date of Procedure: 02/10/22 Procedure(s) Performed: Procedure= bilateral sacroiliac joints steroid injection under fluoroscopy guidance (fluoroscopy image stored on file in the radiology Department ) Preoperative diagnosis= 1-sacroiliitis 2-lumbar degenerative disc disease 3- lumbar facet arthropathy Postoperative diagnosis=Same as preop Diagnosis . Complication = none Condition= stable Anesthesia= moderate sedation with intravenous Versed 2 mg , and fentanyl 50 micrograms . Sedation start time: 908 Sedation end time :919 Indication for the procedure= patient complaining of low back pain , examination was positive for severe tenderness over the sacroiliac joints bilaterally and patient diagnosed with sacroiliitis, for this reason ,she was good candidate for sacroiliac joint steroid injection. Description of the procedure= procedure risk and benefits discussed with the patient, including but not limited, risk of infection and bleeding, and ALLERGIC reaction to the medication and not complete pain relief and patient agreed with the preceding patient taken to the operating room, placed in prone position or standard monitors applied to the patient then after induction of anesthesia back prepped with chlorhexidine 3 times , Then under strict sterile technique, first I did the right sacroiliac joint the which was identified under fluoroscopy guidance been local infiltration of the skin and subcu interstitial with lidocaine 1% then 22-gauge Quincke Needle advanced slowly under fluoroscopy and placed in the right sacroiliac joint needle placement confirmed with AP and oblique and lateral view and after appropriate needle placement confirmed and after negative aspiration, or heme , then Ropivacaine 0.5% 4 mL, and 20 mg of Depo-Medrol mixed together and injected in the right sacroiliac joint after negative aspiration patient tolerated the procedure well without any complication. Then the left sacroiliac joint steroid injection done under strict sterile technique local infiltration of the skin and subcu interstitial at the location of the left sacroiliac joint then a 22-gauge Quincke Needle advanced slowly under fluoroscopy time placed in the left sacroiliac joint, needle placement confirmed with AP and oblique and lateral view then after appropriate needle placement confirmed and after negative aspiration 0.5% Ropivacaine 4 mL and 20 mg of Depo-Medrol injected in the left sacroiliac joint after negative aspiration patient tolerated the procedure well that any complications and she will follow up in clinic 3 weeks
[2022-02-10] MEDS ORDERED: IV FLUID CONTINUATION 1,000 ML IV ONE ×2 (09:28)
--- NOTE | 2022-02-10 09:43 | FL ---
EXAMINATION TYPE: FL guided pain mgmt statistic DATE OF EXAM: 02/10/2022 HISTORY: Fluoroscopy time 8 seconds of fluoroscopy provided. IMPRESSION: 1. Fluoroscopy time.
[2022-02-10 09:45] VITALS: BP 108/70; PULSE 75; RESP 20
== END 2022-02-10 09:56 | disposition home or self-care (01) ==
LOC: ORPAIN 08:11
PROVIDERS: ATTEND Specialist
DX: M46.1 Sacroiliitis, not elsewhere classified (principal); M51.36 Other intervertebral disc degeneration, lumbar region; M47.816 Spondylosis without myelopathy or radiculopathy, lumbar region
CPT/HCPCS: J2250; J1030; J3010; J2795; G0260; 99152

== ENCOUNTER → 2022-03-02 | Outpatient (CLI) | payer MEDICARE, OTHER ==
[2022-03-02 09:19] VITALS: BP 153/82; PULSE 71; RESP 18; TEMP 98.2
--- NOTE | 2022-03-02 14:45 | P.PAINPG ---
PQRS Measure Charge Sheet Comment: A 67 yr old female with a history of severe and chronic low back pain secondary to lumbar degenerative disc diseases and lumbar spondylosis with facet arthropathy presents today for evaluation s/p BL SI joint injections and medication refills. She received 75% pain relief for 3 weeks s/p procedure. Pain level is currently at 6/10 in intensity, constant, localized in the lower aspect of the lumbar spine, sharp & stabbing in character w pain shooting towards the L & R spine. Pain is provoked by weight bearing activities. Pain is alleviated with medications (Percocet, Lyrica, Zanaflex), injections, ice, heat, PT in 2012, repositioning and rest. Interventional pain procedures completed include BL SI injections Patient is currently on Percocet 10/325mg prn, Lyrica 300mg #60, Zanaflex prn. Patient denies any side effects of the medication(s), denies excessive drowsiness or sleepiness, denies suicidal ideation and reports that the current pain medication is helping to control the pain and improve activities of daily living. Patient denies any motor or sensory deficits. Patient denies any fever or night sweats, denies any change in the bowel movements or urination. Physical Examination: -Constitutional: Cooperative. Not in acute distress . - Neurologic: Cranial nerve II to XII intact. No focal neurological deficits. - Psychatric: Alert & oriented x 3. Matching mood & appropriate affect. Judgment and insight intact. - Musculoskeletal: Cervical spine: Muscle bulk/ tone/ strength in the bilateral upper extremities normal Vertebral body tenderness to palpation over Spurling test positive Distraction test positive Facet loading test positive Thoracic spine Muscle bulk / tone/ strength in the bilateral paraspinal muscles normal Vertebral body tender to palpation over Facet loading test positive Lumbar spine: Motor bulk/ tone/ strength lower extremities , thigh and legs : 5/5 Deep tendon reflexes : Normal Knee Jerk. Normal Ankle Jerk . Vertebral body tenderness to palpation over L3, L4, L5 Lumbar Facet Loading Test positive Straight Leg Raise: positive at 30 degrees right side/ left side Gaenslen's Test positive Sacral spine : Severe tenderness over the Sacroiliac joint: right side / left side Range of motion: Flexion of the lumbar spine <60 degrees Range of motion: Extension of the lumbar spine <20 degrees Gaenslen's Test positive Duke's Test positive Rowan test: positive right side / left side Thigh Thrust Test Sacral Thrust Test Assessment and plan: Chronic low back pain secondary to lumbar degenerative disc disease , lumbar spondylosis with facet arthropathy without myelopathy Chronic and current use of high-risk medication (Opioids). The patient was counseled about risk of opioid use, psychological risk associated with opioids and was orally counseled to not overuse , divert or sell medications. Pt is to store medication in a safe location. The patient is counseled against driving while using narcotic medications and also not to use alcohol or any illicit recreational drugs. Patient verbalized understanding that the lack of compliance will result in failure to renew narcotic prescription(s) as well as possible discharge from the clinic Diagnoses, prognosis and treatment options including but not limited to physical therapy, surgical interventions, interventional therapies and medication management including narcotics and adjuvant medication were discussed. All patient questions answered MAPS reviewed and it was appropriate. UDS from 11/10/21 reviewed and consistent. Narcotic agreement updated today 03/02/22 Prescription refill for Percocet 10/325mg, Lyrica 300mg #60, Zanaflex w 1 refill I have spent less than 30 minutes on patient care today. Dr Pedraza was available by phone for the evaluation of this patient. The time was used to review the medical records including relevant urine studies and Prescription history (MAPs), review of the available imaging, evaluation and examination of the patient, coordination of care with the medical staff and if applicable referring physicians, as well as creation of the medical record PQRS Narrative: Smoking Status Former smoker Narcotic Agreement Date Signed 02/03/21 Hx Alcohol Use (MH) No Home Medications: Ambulatory Orders DULoxetine HCL [Cymbalta] 120 mg PO DAILY 11/30/18 Furosemide [Lasix] 20 mg PO DAILY 11/30/18 Insulin Detemir [Levemir Flextouch Pen] 5 units SQ HS 11/30/18 amLODIPine [Norvasc] 10 mg PO DAILY 11/30/18 lisinopriL [Zestril] 40 mg PO DAILY 11/30/18 metFORMIN HCL [Glucophage] 1,000 mg PO BID 11/30/18 Albuterol Sulfate [Proair Hfa] 1 - 2 puff INHALATION QID PRN 03/16/19 Atorvastatin [Lipitor] 80 mg PO HS 04/11/19 Omeprazole [PriLOSEC] 20 mg PO AC-BID 04/11/19 Potassium Chloride [Potassium Chloride ER] 10 meq PO BID 04/11/19 Aspirin [Adult Low Dose Aspirin EC] 81 mg PO DAILY 04/30/19 Brimonidine Tartrate [Alphagan P 0.2% Ophth Soln] 1 drops LEFT EYE BID PRN 05/06/19 Metoprolol Tartrate [Lopressor] 25 mg PO BID 05/30/19 Ferrous Sulfate [Feosol] 325 mg PO DAILY 10/03/19 Loratadine [Claritin] 10 mg PO DAILY PRN 08/10/20 Ibuprofen [Motrin Ib] 800 mg PO Q8H PRN 30 Days #90 tab 11/10/21 Calcium Carbonate [Calcium] 1,200 mg PO DAILY 02/08/22 Pregabalin [Lyrica] 300 mg PO BID 30 Days #60 cap 03/02/22 oxyCODONE-APAP 10-325MG [Percocet 10-325 mg] 1 tab PO Q6HR PRN 30 Days #110 tab 03/02/22 oxyCODONE-APAP 10-325MG [Percocet 10-325 mg] 1 tab PO Q6HR PRN 30 Days #110 tab 03/02/22 tiZANidine [Zanaflex] 4 mg PO Q8HR PRN 30 Days #90 tab 03/02/22 Controlled Substance Measures - Controlled Substance Measures Is patient prescribed a controlled substance at discharge?: Yes When asked, does pt state using other controlled substances?: No If prescribed controlled substance>3 days was MAPS reviewed?: Yes If Rx opioid, was Start Talking consent form obtained?: Yes Was information provided regarding opioid addiction?: Yes
== END ==
LOC: PNWHC3 09:01
PROVIDERS: ATTEND Specialist
DX: M51.36 Other intervertebral disc degeneration, lumbar region (principal); M47.816 Spondylosis without myelopathy or radiculopathy, lumbar region; G89.29 Other chronic pain; Z79.891 Long term (current) use of opiate analgesic; Z87.891 Personal history of nicotine dependence; Z88.6 Allergy status to analgesic agent; Z88.5 Allergy status to narcotic agent; Z88.1 Allergy status to other antibiotic agents; Z88.2 Allergy status to sulfonamides; Z91.048 Other nonmedicinal substance allergy status
CPT/HCPCS: 99211

== ENCOUNTER → 2022-04-05 | Outpatient (CLI) | payer MEDICARE, OTHER ==
--- NOTE | 2022-04-05 13:00 | US ---
EXAMINATION TYPE: US thyroid st tissue head/neck DATE OF EXAM: 04/05/2022 COMPARISON: NONE CLINICAL HISTORY: E04.1 THYROID NODULE. GLAND SIZE: Right Lobe: 5.2 x 1.9 x 2.0 cm Overall Parenchyma: homogenous Left Lobe: 4.7 x 1.4 x 1.8 cm Overall Parenchyma: heterogeneous Isthmus Thickness: 0.7 cm NODULES RIGHT: # of nodules measured on right: 0 LEFT: # of nodules measured on left: 1. 0.7 x 0.7 x 0.8 cm, lower, No prior TIRADS Score: 3 TIRADS Category 3: Mildly Suspicious Composition: Solid or almost completely solid (2 points). Echogenicity: Hyperechoic or isoechoic (1 point). Shape: Wider than tall (0 points). Margin: Smooth (0 points). Echogenic foci: None or large comet-tail artifacts (0 points) Recommendation: If >2.5cm: FNA; If >1.5cm: Follow up at 1,3,5 years 2. 0.8 X 0.5 x 0.8 cm, upper, mid, No prior TIRADS Score: 4 TIRADS Category 4: Moderately Suspicious Composition: Solid or almost completely solid (2 points). Echogenicity: Hypoechoic (2 points). Shape: Wider than tall (0 points). Margin: Smooth (0 points). Echogenic foci: None or large comet-tail artifacts (0 points) Recommendation: If >1.5cm: FNA; If >1cm: Follow up at 1,3,5 years ISTHMUS: # of nodules measured in the isthmus: 0 Bilateral neck scanned, no evidence of lymphadenopathy. IMPRESSION: Left thyroid nodules one of which is TIRADS Category 4: Moderately Suspicious and is subcentimeter in size. Attention on follow-up imaging even though its size does not meet TIRADS criteria.
--- NOTE | 2022-04-06 08:32 | MM ---
Reason for Exam: Screening (asymptomatic). Last mammogram was performed 3 year(s) and 2 month(s) ago. Patient History: Menarche at age 15. First Full-Term at age 21. Postmenopausal. Patient has history of breast feeding. Other cancer, age 22. Maternal aunt had breast cancer, age 68. Mother had breast cancer, age 60. Risk Values: Mary Alice 5 year model risk: 3.0%. NCI Lifetime model risk: 9.9%. Prior Study Comparison: 04/05/2016 Screening Mammogram, [facility]. 12/05/2017 Screening Mammogram, [place]. 01/31/2019 Bilateral Screening Mammogram, [facility]. Tissue Density: The breast tissue is heterogeneously dense. This may lower the sensitivity of mammography. Findings: Analyzed By CAD. Nodular density far outer right cc view not confirmed on the MLO view. Additional views of the right breast are recommended. Stable benign punctate calcifications left breast. Stable chronic nodularity left breast. Overall Assessment: Incomplete: need additional imaging evaluation, BI-RAD 0 Management: Diagnostic Mammogram of the right breast. A clinical breast exam by your physician is recommended on an annual basis and results should be correlated with mammographic findings. Electronically signed and approved by: Bc Gale M.D. Radiologis
== END | disposition home or self-care (01) ==
LOC: RADUSWWP 11:16
PROVIDERS: ATTEND Family Medicine
DX: Z12.31 Encounter for screening mammogram for malignant neoplasm of breast (principal); E04.2 Nontoxic multinodular goiter
CPT/HCPCS: 76536; 77067

== ENCOUNTER → 2022-04-08 | Outpatient (CLI) | payer MEDICARE, OTHER ==
--- NOTE | 2022-04-08 13:38 | MM ---
Reason for Exam: Additional evaluation requested from abnormal screening. Last screening mammogram was performed less than 1 month ago. Patient History: Menarche at age 15. First Full-Term at age 21. Postmenopausal. Patient has history of breast feeding. Other cancer, age 22. Maternal aunt had breast cancer, age 68. Mother had breast cancer, age 60. Risk Values: Mary Alice 5 year model risk: 3.0%. NCI Lifetime model risk: 9.9%. Prior Study Comparison: 04/05/2016 Screening Mammogram, [facility]. 12/05/2017 Screening Mammogram, [facility]. 01/31/2019 Bilateral Screening Mammogram, [facility]. 04/05/2022 Bilateral MG screening mammo w CAD, [facility]. Tissue Density: Right: The breast tissue is heterogeneously dense. This may lower the sensitivity of mammography. Findings: Analyzed By CAD. Persistent nodular density within the far outer deep right breast 6 mm. This is unchanged dating back to 2017 and considered benign. No new suspicious masses or worrisome clustered microcalcifications. Overall Assessment: Benign, BI-RAD 2 Management: Screening Mammogram of both breasts in 1 year. A clinical breast exam by your physician is recommended on an annual basis and results should be correlated with mammographic findings. This exam should not preclude additional follow-up of suspicious palpable abnormalities. Results were given to the patient verbally at the time of exam. Electronically signed and approved by: Tavares Julian D.O.
== END | disposition home or self-care (01) ==
LOC: RADMAMWWP 12:35
PROVIDERS: ATTEND Family Medicine
DX: R92.8 Other abnormal and inconclusive findings on diagnostic imaging of breast (principal); Z78.0 Asymptomatic menopausal state; Z80.3 Family history of malignant neoplasm of breast
CPT/HCPCS: 77065; G0279; 77061

== ENCOUNTER → 2022-06-22 | Outpatient (CLI) | payer MEDICARE, OTHER ==
[2022-06-22 09:40] VITALS: BP 126/82; PULSE 75; RESP 16; TEMP 98.3
--- NOTE | 2022-06-22 14:24 | P.PAINPG ---
PQRS Measure Charge Sheet Comment: A 67 yr old female with a history of severe and chronic low back pain secondary to lumbar DDD and spondylosis with facet arthropathy without myelopathy and BL Sacroiliitis presents today for medication refills. Pain level is at 8/10 in intensity w provocation, constant, localized in the mid to lower lumbar spine, sharp in character w shooting towards the buttocks. Pain is provoked by sitting for periods of 30 min or more. Pain is alleviated with PT years ago, ice, medications, topicals, sitting and rest. Interventional pain procedures completed include BL SI injections Patient is currently on Percocet, Lyrica, Tyl, Ibu Patient denies any side effects of the medication(s), denies excessive drowsine ss or sleepiness, denies suicidal ideation and reports that the current pain medication is helping to control the pain and improve activities of daily living. Patient denies any motor or sensory deficits. Patient denies any fever or night sweats, denies any change in the bowel movements or urination. Physical Examination: -Constitutional: Cooperative. Not in acute distress . - Neurologic: Cranial nerve II to XII intact. No focal neurological deficits. - Psychatric: Alert & oriented x 3. Matching mood & appropriate affect. Judgment and insight intact. - Musculoskeletal: Cervical spine: Muscle bulk/ tone/ strength in the bilateral upper extremities normal Vertebral body tenderness to palpation over Spurling test positive Distraction test positive Facet loading test positive Thoracic spine Muscle bulk / tone/ strength in the bilateral paraspinal muscles normal Vertebral body tender to palpation over Facet loading test positive Lumbar spine: Motor bulk/ tone/ strength lower extremities , thigh and legs : 5/5 Deep tendon reflexes : Normal Knee Jerk. Normal Ankle Jerk . Vertebral body tenderness to palpation over Lumbar Facet Loading Test positive Straight Leg Raise: positive at 30 degrees right side/ left side Gaenslen's Test positive Sacral spine : Severe tenderness over the Sacroiliac joint: right side / left side Range of motion: Flexion of the lumbar spine <60 degrees Range of motion: Extension of the lumbar spine <20 degrees Gaenslen's Test positive BL Rowan test: positive right side > left side R>L Thigh Thrust Test BL Sacral Thrust Test Assessment and plan: Chronic LBP secondary to lumbar DDD, spondylosis with facet arthropathy without myelopathy, BL Sacroiliitis Recommendation of BL SI injection. May need a series, up to every 3 mo, for optimal pain relief. Risks, benefits of procedure discussed and pt verbalized understanding. Admits to anticoagulant use or medical history of diabetes. Protocol for discontinuation / continuation of medications marky procedure discussed. Chronic and current use of high-risk medication (Opioids). The patient was counseled about risk of opioid use, psychological risk associated with opioids and was orally counseled to not overuse , divert or sell medications. Pt is to store medication in a safe location. The patient is counseled against driving while using narcotic medications and also not to use alcohol or any illicit recreational drugs. Patient verbalized understanding that the lack of compliance will result in failure to renew narcotic prescription(s) as well as possible discharge from the clinic Diagnoses, prognosis and treatment options including but not limited to physical therapy, surgical interventions, interventional therapies and medication management including narcotics and adjuvant medication were discussed. All patient questions answered UDS from 05/02/22 reviewed and consistent MAPS reviewed and it was appropriate. Prescription refill for Percocet 10/325mg #110 , Lyrica 300mg #60 w 1 RF I have spent less than 30 minutes on patient care today. Dr Pedraza was available by phone for the evaluation of this patient. The time was used to review the medical records including relevant urine studies and Prescription history (MAPs), review of the available imaging, evaluation and examination of the patient, coordination of care with the medical staff and if applicable referring physicians, as well as creation of the medical record - Pain Location Bilateral Lower Back Non-Pharmacological Interventions: Ice, Inactivity, Physical Therapy, Sitting Pharmacological Interventions: Block, Epidural, PRN Medication, Scheduled Medication, Topical Medication PQRS Narrative: Smoking Status Former smoker Narcotic Agreement Date Signed 03/02/22 Hx Alcohol Use (MH) No Home Medications: Ambulatory Orders DULoxetine HCL [Cymbalta] 120 mg PO DAILY 11/30/18 Furosemide [Lasix] 20 mg PO DAILY 11/30/18 Insulin Detemir [Levemir Flextouch Pen] 5 units SQ HS 11/30/18 amLODIPine [Norvasc] 10 mg PO DAILY 11/30/18 lisinopriL [Zestril] 40 mg PO DAILY 11/30/18 metFORMIN HCL [Glucophage] 1,000 mg PO BID 11/30/18 Albuterol Sulfate [Proair Hfa] 1 - 2 puff INHALATION QID PRN 03/16/19 Atorvastatin [Lipitor] 80 mg PO HS 04/11/19 Omeprazole [PriLOSEC] 20 mg PO AC-BID 04/11/19 Potassium Chloride [Potassium Chloride ER] 10 meq PO BID 04/11/19 Aspirin [Adult Low Dose Aspirin EC] 81 mg PO DAILY 04/30/19 Brimonidine Tartrate [Alphagan P 0.2% Ophth Soln] 1 drops LEFT EYE BID PRN 05/06/19 Metoprolol Tartrate [Lopressor] 25 mg PO BID 05/30/19 Ferrous Sulfate [Feosol] 325 mg PO DAILY 10/03/19 Loratadine [Claritin] 10 mg PO DAILY PRN 08/10/20 Ibuprofen [Motrin Ib] 800 mg PO Q8H PRN 30 Days #90 tab 11/10/21 Calcium Carbonate [Calcium] 1,200 mg PO DAILY 02/08/22 tiZANidine [Zanaflex] 4 mg PO Q8HR PRN 30 Days #90 tab 03/02/22 Pregabalin [Lyrica] 300 mg PO BID 30 Days #60 cap 06/22/22 oxyCODONE-APAP 10-325MG [Percocet 10-325 mg] 1 tab PO Q6HR PRN 30 Days #110 tab 06/22/22 oxyCODONE-APAP 10-325MG [Percocet 10-325 mg] 1 tab PO Q6HR PRN 30 Days #110 tab 06/22/22 Controlled Substance Measures - Controlled Substance Measures Is patient prescribed a controlled substance at discharge?: Yes When asked, does pt state using other controlled substances?: No If prescribed controlled substance>3 days was MAPS reviewed?: Yes If Rx opioid, was Start Talking consent form obtained?: Yes Was information provided regarding opioid addiction?: Yes
== END ==
LOC: PNWHC3 09:05
PROVIDERS: ATTEND Specialist
DX: M47.816 Spondylosis without myelopathy or radiculopathy, lumbar region (principal); M51.36 Other intervertebral disc degeneration, lumbar region; G89.29 Other chronic pain; Z79.891 Long term (current) use of opiate analgesic; Z88.2 Allergy status to sulfonamides; Z88.6 Allergy status to analgesic agent; Z88.5 Allergy status to narcotic agent; Z88.1 Allergy status to other antibiotic agents; Z91.048 Other nonmedicinal substance allergy status; Z87.891 Personal history of nicotine dependence
CPT/HCPCS: 99211

== ENCOUNTER → 2022-06-23 | Outpatient (CLI) | payer MEDICARE, OTHER ==
--- NOTE | 2022-06-23 13:19 | US ---
EXAMINATION TYPE: US abdomen complete DATE OF EXAM: 06/23/2022 COMPARISON: NONE CLINICAL HISTORY: 67-year-old female K21.9 GASTRO-ESOPHAGEAL REFLUX DISEASE WITHOUT ESO. Patient stat es she had burning in her stomach x 1 month ago but is better now. GB removed. Patient states jose g right renal pelvis repair. TECHNIQUE: Multiple sonographic images of the abdomen are obtained. FINDINGS: EXAM MEASUREMENTS: Liver Length: 18.5 cm CBD: 0.7 cm CHD: 0.9 cm Spleen: 9.3 cm Right Kidney: 9.3 x 4.8 x 3.9 cm Left Kidney: 11.2 x 5.0 x 5.9 cm Pancreas: Echogenic in appearance. Tail not well seen. Main pancreatic duct is borderline in calib er at 3 mm. Liver: Enlarged in size. Echogenic. Coarse. Gallbladder: Surgically absent Evidence for sonographic Hsieh's sign: neg CBD: Mildly dilated. CHD: Dilated. Spleen: Numerous calcified granulomas. Right Kidney: Appears smaller in size compared to contralateral kidney. Extrarenal pelvis noted. No hydronephrosis. Renal cortex appears lobular. Left Kidney: No hydronephrosis or masses seen Upper IVC: wnl Abd Aorta: Not visualized IMPRESSION: 1. Mild hepatomegaly at 18.5 cm. There is at least moderate hepatic steatosis. Correlate with LFTs an d lipid profile, patient risk factors. 2. Dilated bile duct at 9 mm, likely chronic postcholecystectomy status. 3. The main pancreatic duct is also borderline in caliber at 3 mm. This may be chronic for the patien t. Correlate with amylase and lipase levels. Further contrast enhanced CT evaluation if clinically in dicated.
[2022-06-23 17:57] LABS: Basophils # (A) 0.07 X 10*3/uL (0.00-0.10); Basophils % (A) 0.7 %; Eosinophils # (A) 0.21 X 10*3/uL (0.04-0.35); HCT 46.9 % (37.2-46.3); HGB 14.3 g/dL (12.0-15.0); Immature Grans, Automated 0.8 %; Lymphocytes # (A) 3.42 X 10*3/uL (0.90-5.00); Lymphocytes % (A) 31.9 %; MCH 28.7 pg (27.0-32.0); MCHC 30.5 g/dL (32.0-37.0); MCV 94.2 fL (80.0-97.0); Mean Platelet Volume 9.2 fL (9.5-12.2); Monocytes # (A) 0.77 X 10*3/uL (0.20-1.00); Monocytes % (A) 7.2 %; NRBC Per 100 WBC 0 /100 WBCS (0.0-0.0); Neutrophils # (A) 6.15 X 10*3/uL (1.80-7.70); Neutrophils % (A) 57.4 %; Platelet Count 334 X 10*3/uL (140-440); RBC 4.98 X 10*6/uL (4.10-5.20); RDW 12.3 % (11.5-14.5); WBC 10.71 X 10*3/uL (4.50-10.00)
[2022-06-23 19:55] LABS: Lipase 70 U/L (14-63)
[2022-06-23 20:37] LABS: % Iron Saturation 12.96 (12.00-45.00); ALT 34 U/L (8-44); AST 20 U/L (13-35); African American GFR (CKD) 76.7 (60.0-200.0); Albumin 4.3 g/dL (3.8-4.9); Albumin/Globulin Ratio 1.48 (1.60-3.17); Alkaline Phosphatase 70 U/L (41-126); BUN/Creat Ratio 14.78 Ratio (12.00-20.00); Bilirubin, Conjugated <0.20 mg/dL (0.20-0.40); Blood Urea Nitrogen 13.3 mg/dL (9.0-27.0); Calcium 10.3 mg/dL (8.7-10.3); Carbon Dioxide 26.3 mmol/L (20.0-27.5); Chloride 101 mmol/L (96-109); Ferritin 56.7 ng/mL (10.0-291.0); Globulin 2.9 g/dL (1.6-3.3); Glucose 139 mg/dL (70-110); Iron 54 ug/dL (50-170); Magnesium 1.6 mg/dL (1.5-2.4); Non-African American GFR(CKD) 66.2 (60.0-200.0); Potassium 4.9 mmol/L (3.5-5.5); Sodium 141 mmol/L (135-145); Total Iron Binding Capacity 414 ug/dL (228-460); Total Protein 7.2 g/dL (6.2-8.2)
== END | disposition home or self-care (01) ==
LOC: RADUSWWP 08:34
PROVIDERS: ATTEND Internal Medicine
DX: K21.9 Gastro-esophageal reflux disease without esophagitis (principal); E11.9 Type 2 diabetes mellitus without complications
CPT/HCPCS: 76700; 80053; 82248; 82607; 82728; 82746; 83036; 83540; 83550; 83690; 83735; 84443; 85025

== ENCOUNTER → 2022-06-23 | Outpatient (CLI) | payer MEDICARE, OTHER ==
--- NOTE | 2022-06-23 09:38 | CTL ---
EXAMINATION TYPE: CT Low Dose Lung DATE OF EXAM ORDERED: 06/23/2022 HISTORY: . Lung cancer screening CT DLP: 80.[address] CTDI: 2.4 mGy Automated exposure control for dose reduction was used. SCREENING VISIT: COMPARISON: 02/26/2021 TECHNIQUE: Low dose computed tomography scan was performed through the chest at 1 mm thick sections a nd reconstructed images in multiple planes at 1 mm and [address] DIAGNOSTIC QUALITY: Satisfactory FINDINGS: A large calcified granuloma in the left lung measuring 1.4 cm. Calcified lymph nodes in the hilum are noted. Calcified lymph nodes in the mediastinum noted. Mild changes of emphysema. No evidence of focal pneumonia or vascular no pneumothorax. No interstitia l edema. A granuloma within the liver and spleen noted. Hypertrophic and degenerative changes of the spine. Ryder bsegmental changes in the superior segment Noncontrast technique limits assessment of the hilum for adenopathy. As noted above calcified lymph n odes in the mediastinum or hilum are noted. Aorta normal caliber with atherosclerotic changes. Dense coronary artery calcification noted. IMPRESSION: 1. COPD with benign calcified nodule left lung stable. 2. Changes of chronic granulomatous disease. 3. Coronary artery calcifications. CT LUNG RAD AND CT CHEST RECOMMENDATION: Lung-Rad 2 Benign Appearance or Behavior: Continue annual sc reening with LDCT in 12 months. S Modifier (other clinically significant findings): S
== END | disposition home or self-care (01) ==
LOC: RADCTMAIN 09:03
PROVIDERS: ATTEND Internal Medicine
DX: Z12.2 Encounter for screening for malignant neoplasm of respiratory organs (principal); J44.9 Chronic obstructive pulmonary disease, unspecified; I25.10 Atherosclerotic heart disease of native coronary artery without angina pectoris; J84.10 Pulmonary fibrosis, unspecified; R91.1 Solitary pulmonary nodule; Z87.891 Personal history of nicotine dependence
CPT/HCPCS: 71271

== ENCOUNTER 2022-08-09 08:39 | Day surgery (SDC) | payer MEDICARE, OTHER ==
[2022-08-04 16:02] VITALS: BMI 27.4
[2022-08-09 09:15] VITALS: TEMP 97
[2022-08-09 09:15] LABS: Glucose,Whole Blood 208 mg/dL (70-110)
[2022-08-09 09:15] LABS: Glucose,Whole Blood 213 mg/dL (70-110)
[2022-08-09 09:15] LABS: Glucose,Whole Blood <20 mg/dL (70-110)
[2022-08-09] MEDS ORDERED: LACTATED RINGERS 1,000 ML IV ONE (09:15)
[2022-08-09] MEDS ORDERED: methylPREDNISolone ACETATE 40 MG/ML 1 ML VIAL ONE (09:35)
[2022-08-09] MEDS ORDERED: ROPIVACAINE 5 MG/ML 20 ML AMPULE ONE (09:35)
[2022-08-09] MEDS ORDERED: fentaNYL (PF) 50 MCG/ML 2 ML AMP ONE (09:35)
[2022-08-09] MEDS ORDERED: MIDAZOLAM 2 MG/2 ML VIAL ONE (09:35)
--- NOTE | 2022-08-09 09:47 | P.PCN ---
Date of Procedure: 08/09/22 Procedure(s) Performed: Procedure= bilateral sacroiliac joints steroid injection under fluoroscopy guidance (fluoroscopy image stored on file in the radiology Department ) Preoperative diagnosis= 1-sacroiliitis 2-lumbar degenerative disc disease 3- lumbar facet arthropathy Postoperative diagnosis=Same as preop Diagnosis . Complication = none Condition= stable Anesthesia= moderate sedation with intravenous Versed 2 mg , and fentanyl 50 micrograms . Sedation start time: 09:37 Sedation end time :09:45 Indication for the procedure= patient complaining of low back pain , examination was positive for severe tenderness over the sacroiliac joints bilaterally and patient diagnosed with sacroiliitis, for this reason ,she was good candidate for sacroiliac joint steroid injection. Description of the procedure= procedure risk and benefits discussed with the patient, including but not limited, risk of infection and bleeding, and ALLERGIC reaction to the medication and not complete pain relief and patient agreed with the preceding patient taken to the operating room, placed in prone position or standard monitors applied to the patient then after induction of anesthesia back prepped with chlorhexidine 3 times , Then under strict sterile technique, first I did the right sacroiliac joint the which was identified under fluoroscopy guidance been local infiltration of the skin and subcu interstitial with lidocaine 1% then 22-gauge Quincke Needle advanced slowly under fluoroscopy and placed in the right sacroiliac joint needle placement confirmed with AP and oblique and lateral view and after appropriate needle placement confirmed and after negative aspiration, or heme , then Ropivacaine 0.5% 4 mL, and 20 mg of Depo-Medrol mixed together and injected in the right sacroiliac joint after negative aspiration patient tolerated the procedure well without any complication. Then the left sacroiliac joint steroid injection done under strict sterile technique local infiltration of the skin and subcu interstitial at the location of the left sacroiliac joint then a 22-gauge Quincke Needle advanced slowly under fluoroscopy time placed in the left sacroiliac joint, needle placement confirmed with AP and oblique and lateral view then after appropriate needle placement confirmed and after negative aspiration 0.5% Ropivacaine 4 mL and 20 mg of Depo-Medrol injected in the left sacroiliac joint after negative aspiration patient tolerated the procedure well that any complications and she will follow up in clinic 3 weeks
[2022-08-09] MEDS ORDERED: IV FLUID CONTINUATION 1,000 ML IV ONE (09:52)
[2022-08-09 09:54] VITALS: RESP 16
[2022-08-09 10:12] VITALS: BP 115/77; PULSE 74
--- NOTE | 2022-08-09 10:22 | FL ---
EXAMINATION TYPE: FL guided pain mgmt statistic DATE OF EXAM: 08/09/2022 CLINICAL HISTORY: Bilateral SI joint steroid injection TECHNIQUE: Fluoroscopy. COMPARISON: None. FINDINGS: Fluoroscopic guidance was provided during procedure performed by Dr. Pedraza. A total of 8 seconds of fluoroscopic time was utilized during the procedure and 2 spot images was acquired. IMPRESSION: As Above.
== END 2022-08-09 10:27 | disposition home or self-care (01) ==
LOC: ORPAIN 08:39
PROVIDERS: ATTEND Specialist
DX: M46.1 Sacroiliitis, not elsewhere classified (principal); M51.36 Other intervertebral disc degeneration, lumbar region; M47.816 Spondylosis without myelopathy or radiculopathy, lumbar region; Z88.2 Allergy status to sulfonamides; Z88.6 Allergy status to analgesic agent; Z88.1 Allergy status to other antibiotic agents
CPT/HCPCS: 99152; J2250; J1030; J3010; J2795; G0260

== ENCOUNTER → 2022-08-17 | Outpatient (CLI) | payer MEDICARE, OTHER ==
[2022-08-17 09:41] VITALS: BP 123/85; PULSE 85; RESP 18; TEMP 98.5
--- NOTE | 2022-08-17 14:06 | P.PAINPG ---
PQRS Measure Charge Sheet Comment: A 67 yr old female with a history of severe and chronic LBP secondary to lumbar DDD and spondylosis with facet arthropathy without myelopathy presents today for medication refills. Pain level is provoked at 5 /10 in intensity, constant, localized in the lumbar spine, achy/ sharp in character w shooting towards the flanks. Pain is provoked by standing/ walking/ bending for periods of 10 min or more. Pain is alleviated with alternating heat & ice, meds (Lyrica, Zanaflex, Percocet), topicals, sitting, repositioning and rest. Patient is currently on Percocet 10/325mg #110, Lyrica 300mg #60, Zanaflex Patient denies any side effects of the medication(s), denies excessive drowsiness or sleepiness, denies suicidal ideation and reports that the current pain medication is helping to control the pain and improve activities of daily living. Patient denies any motor or sensory deficits. Patient denies any fever or night sweats, denies any change in the bowel movements or urination. Physical Examination: -Constitutional: Cooperative. Not in acute distress . - Neurologic: Cranial nerve II to XII intact. No focal neurological deficits. - Psychatric: Alert & oriented x 3. Matching mood & appropriate affect. Judgment and insight intact. - Musculoskeletal: Cervical spine: Muscle bulk/ tone/ strength in the bilateral upper extremities normal Vertebral body tenderness to palpation over Spurling test positive Distraction test positive Facet loading test positive Thoracic spine Muscle bulk / tone/ strength in the bilateral paraspinal muscles normal Vertebral body tender to palpation over Facet loading test positive Lumbar spine: Motor bulk/ tone/ strength lower extremities , thigh and legs : 5/5 Deep tendon reflexes : Normal Knee Jerk. Normal Ankle Jerk . Vertebral body tenderness to palpation over L3, L4, L5 Lumbar Facet Loading Test positive Straight Leg Raise: positive at 30 degrees right side/ left side Gaenslen's Test positive Sacral spine : Severe tenderness over the Sacroiliac joint: right side / left side Range of motion: Flexion of the lumbar spine <60 degrees Range of motion: Extension of the lumbar spine <20 degrees Gaenslen's Test positive Rowan test: positive right side / left side Thigh Thrust Test Sacral Thrust Test Assessment and plan: Chronic LBP secondary to lumbar DDD, spondylosis with facet arthropathy without myelopathy Chronic and current use of high-risk medication (Opioids). The patient was counseled about risk of opioid use, psychological risk associated with opioids and was orally counseled to not overuse , divert or sell medications. Pt is to store medication in a safe location. The patient is counseled against driving while using narcotic medications and also not to use alcohol or any illicit recreational drugs. Patient verbalized understanding that the lack of compliance will result in failure to renew narcotic prescription(s) as well as possible discharge from the clinic Diagnoses, prognosis and treatment options including but not limited to physical therapy, surgical interventions, interventional therapies and medication management including narcotics and adjuvant medication were discussed. All patient questions answered MAPS reviewed and it was appropriate. UDS from 04/27/22 reviewed and consistent. Prescription refill for Percocet 10/325mg #110, Lyrica 300mg #60, Zanaflex w 1 RF I have spent less than 30 minutes on patient care today. Dr Pedraza was avai lable by phone for the evaluation of this patient. The time was used to review the medical records including relevant urine studies and Prescription history (MAPs), review of the available imaging, evaluation and examination of the patient, coordination of care with the medical staff and if applicable referring physicians, as well as creation of the medical record PQRS Narrative: Smoking Status Former smoker Narcotic Agreement Date Signed 03/02/22 Hx Alcohol Use (MH) No Home Medications: Ambulatory Orders DULoxetine HCL [Cymbalta] 120 mg PO DAILY 11/30/18 Furosemide [Lasix] 20 mg PO DAILY 11/30/18 Insulin Detemir [Levemir Flextouch Pen] 5 units SQ HS 11/30/18 amLODIPine [Norvasc] 10 mg PO DAILY 11/30/18 lisinopriL [Zestril] 40 mg PO DAILY 11/30/18 metFORMIN HCL [Glucophage] 1,000 mg PO BID 11/30/18 Albuterol Sulfate [Proair Hfa] 1 - 2 puff INHALATION QID PRN 03/16/19 Atorvastatin [Lipitor] 80 mg PO HS 04/11/19 Potassium Chloride [Potassium Chloride ER] 10 meq PO BID 04/11/19 Aspirin [Adult Low Dose Aspirin EC] 81 mg PO DAILY 04/30/19 Brimonidine Tartrate [Alphagan P 0.2% Ophth Soln] 1 drops LEFT EYE BID PRN 05/06/19 Metoprolol Tartrate [Lopressor] 25 mg PO BID 05/30/19 Ferrous Sulfate [Feosol] 325 mg PO Q2D 10/03/19 Loratadine [Claritin] 10 mg PO DAILY PRN 08/10/20 Ibuprofen [Motrin Ib] 800 mg PO Q8H PRN 30 Days #90 tab 11/10/21 Calcium Carbonate [Calcium] 1,200 mg PO DAILY 02/08/22 Pregabalin [Lyrica] 300 mg PO BID 30 Days #60 cap 08/17/22 oxyCODONE HCL/ACETAMINOPHEN [Percocet 10-325 mg Tablet] 1 each PO Q4H PRN 30 Days #110 tab 08/17/22 oxyCODONE HCL/ACETAMINOPHEN [Percocet 10-325 mg] 1 tab PO Q4HR PRN 30 Days #110 tab 08/17/22 tiZANidine [Zanaflex] 4 mg PO Q8HR PRN 30 Days #90 tab 08/17/22 Controlled Substance Measures - Controlled Substance Measures Is patient prescribed a controlled substance at discharge?: Yes When asked, does pt state using other controlled substances?: No If prescribed controlled substance>3 days was MAPS reviewed?: Yes If Rx opioid, was Start Talking consent form obtained?: Yes If opioid is for acute pain is fill amount 7 days or less?: No Was information provided regarding opioid addiction?: Yes
== END ==
LOC: PNWHC3 08:14
PROVIDERS: ATTEND Specialist
DX: M47.816 Spondylosis without myelopathy or radiculopathy, lumbar region (principal); M51.36 Other intervertebral disc degeneration, lumbar region; G89.29 Other chronic pain; Z79.891 Long term (current) use of opiate analgesic; Z88.6 Allergy status to analgesic agent; Z88.5 Allergy status to narcotic agent; Z91.048 Other nonmedicinal substance allergy status; Z88.2 Allergy status to sulfonamides; Z87.891 Personal history of nicotine dependence; Z88.1 Allergy status to other antibiotic agents
CPT/HCPCS: 99211

== ENCOUNTER → 2022-10-12 | Outpatient (CLI) | payer MEDICARE, OTHER ==
[2022-10-12 09:14] VITALS: BP 130/82; PULSE 77; RESP 18; TEMP 97.5
--- NOTE | 2022-10-12 14:13 | P.PAINPG ---
PQRS Measure Charge Sheet Comment: A 67 yr old female with a history of severe and chronic LBP on & off x 20 yrs, secondary to lumbar DDD and spondylosis with facet arthropathy without myelopathy presents today for medication refills. Pain level is provoked at 4 /10 in intensity, constant, localized in the mid lumbar spine, achy in character w shooting towards the BL flanks. Pain is provoked by bending, twisting, sitting upright for periods of 20 min or more. Pain is alleviated with medications, alternating heat & ice, repositioning and rest. Interventional pain procedures completed include BL SI injection Patient is currently on Percocet 10/325mg #110, Lyrica 300mg #60, Zanaflex, Ibu, Tyl Patient denies any side effects of the medication(s), denies excessive drowsiness or sleepiness, denies suicidal ideation and reports that the current pain medication is helping to control the pain and improve activities of daily living. Patient denies any motor or sensory deficits. Patient denies any fever or night sweats, denies any change in the bowel movements or urination. Physical Examination: -Constitutional: Cooperative. Not in acute distress . - Neurologic: Cranial nerve II to XII intact. No focal neurological deficits. - Psychatric: Alert & oriented x 3. Matching mood & appropriate affect. Judgment and insight intact. - Musculoskeletal: Cervical spine: Muscle bulk/ tone/ strength in the bilateral upper extremities normal Vertebral body tenderness to palpation over Spurling test positive Distraction test positive Facet loading test positive TTP Thoracic spine Muscle bulk / tone/ strength in the bilateral paraspinal muscles normal Vertebral body tender to palpation over Facet loading test positive TTP Lumbar spine: Motor bulk/ tone/ strength lower extremities , thigh and legs : 5/5 Deep tendon reflexes : Normal Knee Jerk. Normal Ankle Jerk . Vertebral body tenderness to palpation over L2, L3, L4 Lumbar Facet Loading Test positive Straight Leg Raise: positive at 30 degrees right side/ left side Gaenslen's Test positive Sacral spine : Severe tenderness over the Sacroiliac joint: right side / left side Range of motion: Flexion of the lumbar spine <60 degrees Range of motion: Extension of the lumbar spine <20 degrees Gaenslen's Test positive right side / left side Rowan test: positive right side / left side Thigh Thrust Test positive right side / left side Sacral Thrust Test positive right side / left side Assessment and plan: Chronic LBP secondary to lumbar DDD, spondylosis with facet arthropathy without myelopathy Chronic and current use of high-risk medication (Opioids). The patient was counseled about risk of opioid use, psychological risk associated with opioids and was orally counseled to not overuse , divert or sell medications. Pt is to store medication in a safe location. The patient is counseled against driving while using narcotic medications and also not to use alcohol or any illicit recreational drugs. Patient verbalized understanding that the lack of compliance will result in failure to renew narcotic prescription(s) as well as possible discharge from the clinic Diagnoses, prognosis and treatment options including but not limited to physical therapy, surgical interventions, interventional therapies and medication management including narcotics and adjuvant medication were discussed. All patient questions answered MAPS reviewed and it was appropriate. UDS from 04/27/22 reviewed and consistent. Prescription refill for Percocet 10/325mg #110, Lyrica 300mg #60, Zanaflex 1 RF I have spent less than 30 minutes on patient care today. Dr Pedraza was available by phone for the evaluation of this patient. The time was used to review the medical records including relevant urine studies and Prescription history (MAPs), review of the available imaging, evaluation and examination of the patient, coordination of care with the medical staff and if applicable referring physicians, as well as creation of the medical record PQRS Narrative: Smoking Status Former smoker Narcotic Agreement Date Signed 03/02/22 Hx Alcohol Use (MH) No Home Medications: Ambulatory Orders DULoxetine HCL [Cymbalta] 120 mg PO DAILY 11/30/18 Furosemide [Lasix] 20 mg PO DAILY 11/30/18 Insulin Detemir [Levemir Flextouch Pen] 5 units SQ HS 11/30/18 amLODIPine [Norvasc] 10 mg PO DAILY 11/30/18 lisinopriL [Zestril] 40 mg PO DAILY 11/30/18 metFORMIN HCL [Glucophage] 1,000 mg PO BID 11/30/18 Albuterol Sulfate [Proair Hfa] 1 - 2 puff INHALATION QID PRN 03/16/19 Atorvastatin [Lipitor] 80 mg PO HS 04/11/19 Potassium Chloride [Potassium Chloride ER] 10 meq PO BID 04/11/19 Aspirin [Adult Low Dose Aspirin EC] 81 mg PO DAILY 04/30/19 Brimonidine Tartrate [Alphagan P 0.2% Ophth Soln] 1 drops LEFT EYE BID PRN 05/06/19 Metoprolol Tartrate [Lopressor] 25 mg PO BID 05/30/19 Ferrous Sulfate [Feosol] 325 mg PO Q2D 10/03/19 Loratadine [Claritin] 10 mg PO DAILY PRN 08/10/20 Ibuprofen [Motrin Ib] 800 mg PO Q8H PRN 30 Days #90 tab 11/10/21 Calcium Carbonate [Calcium] 1,200 mg PO DAILY 02/08/22 tiZANidine [Zanaflex] 4 mg PO Q8HR PRN 30 Days #90 tab 08/17/22 Pregabalin [Lyrica] 300 mg PO BID 30 Days #60 cap 10/12/22 oxyCODONE HCL/ACETAMINOPHEN [Percocet 10-325 mg Tablet] 1 each PO Q6H PRN 30 Days #110 tab 10/12/22 oxyCODONE HCL/ACETAMINOPHEN [Percocet 10-325 mg] 1 each PO Q6H PRN 30 Days #110 tab 10/12/22 Controlled Substance Measures - Controlled Substance Measures Is patient prescribed a controlled substance at discharge?: Yes
== END ==
LOC: PNWHC3 08:38
PROVIDERS: ATTEND Specialist
DX: M51.36 Other intervertebral disc degeneration, lumbar region (principal); M47.816 Spondylosis without myelopathy or radiculopathy, lumbar region; G89.29 Other chronic pain; Z79.891 Long term (current) use of opiate analgesic; Z79.82 Long term (current) use of aspirin; Z88.2 Allergy status to sulfonamides; Z88.6 Allergy status to analgesic agent; Z88.5 Allergy status to narcotic agent; Z91.048 Other nonmedicinal substance allergy status; Z88.1 Allergy status to other antibiotic agents; Z87.891 Personal history of nicotine dependence
CPT/HCPCS: 99211

== ENCOUNTER → 2022-12-07 | Outpatient (CLI) | payer MEDICARE, OTHER ==
[2022-12-07 10:43] VITALS: BP 134/89; PULSE 93; RESP 18; TEMP 98.4
--- NOTE | 2022-12-07 14:16 | P.PAINPG ---
PQRS Measure Charge Sheet Comment: A 67 yr old female w at side with a history of severe and chronic mid back pain on & off x 20 yrs, secondary to lumbar DDD and spondylosis with facet arthropathy without myelopathy presents today for medication refills. Pain level is provoked at 9 /10 in intensity, constant, localized in the thoracic spine, sharp in character w shooting towards the BL flanks. Pain is provoked by bending, twisting, sitting upright for periods of 20 min or more. Pain is alleviated with PT years ago, medications, Leo-Traore topical alternating heat & ice, repositioning and rest. Interventional pain procedures completed include BL SI injection Patient is currently on Percocet 10/325mg #110, Lyrica 300mg #60, Zanaflex, Ibu, Tyl Patient denies any side effects of the medication(s), denies excessive drowsiness or sleepiness, denies suicidal ideation and reports that the current pain medication is helping to control the pain and improve activities of daily living. Patient denies any motor or sensory deficits. Patient denies any fever or night sweats, denies any change in the bowel movements or urination. Physical Examination: -Constitutional: Cooperative. Not in acute distress . - Neurologic: Cranial nerve II to XII intact. No focal neurological deficits. - Psychatric: Alert & oriented x 3. Matching mood & appropriate affect. Judgment and insight intact. - Musculoskeletal: Cervical spine: Muscle bulk/ tone/ strength in the bilateral upper extremities normal Vertebral body tenderness to palpation over Spurling test positive Distraction test positive Facet loading test positive TTP Thoracic spine Muscle bulk / tone/ strength in the bilateral paraspinal muscles normal Vertebral body tender to palpation over Facet loading test positive TTP Lumbar spine: Motor bulk/ tone/ strength lower extremities , thigh and legs : 5/5 Deep tendon reflexes : Normal Knee Jerk. Normal Ankle Jerk . Vertebral body tenderness to palpation over L2, L3, L4 Lumbar Facet Loading Test positive Straight Leg Raise: positive at 30 degrees right side/ left side Gaenslen's Test positive Sacral spine : Severe tenderness over the Sacroiliac joint: right side / left side Range of motion: Flexion of the lumbar spine <60 degrees Range of motion: Extension of the lumbar spine <20 degrees Gaenslen's Test positive right side / left side Rowan test: positive right side / left side Thigh Thrust Test positive right side / left side Sacral Thrust Test positive right side / left side Assessment and plan: Chronic LBP secondary to lumbar DDD, spondylosis with facet arthropathy without myelopathy Chronic and current use of high-risk medication (Opioids). The patient was counseled about risk of opioid use, psychological risk associated with opioids and was orally counseled to not overuse , divert or sell medications. Pt is to store medication in a safe location. The patient is counseled against driving while using narcotic medications and also not to use alcohol or any illicit recreational drugs. Patient verbalized understanding that the lack of compliance will result in failure to renew narcotic prescription(s) as well as possible discharge from the clinic Diagnoses, prognosis and treatment options including but not limited to physical therapy, surgical interventions, interventional therapies and medication management including narcotics and adjuvant medication were discussed. All patient questions answered MAPS reviewed and it was appropriate. UDS from 04/27/22 reviewed and consistent. Prescription refill for Percocet 10/325mg #110, Lyrica 300mg #60, Zanaflex 1 RF I have spent less than 30 minutes on patient care today. Dr Pedraza was available by phone for the evaluation of this patient. The time was used to review the medical records including relevant urine studies and Prescription history (MAPs), review of the available imaging, evaluation and examination of the patient, coordination of care with the medical staff and if applicable referring physicians, as well as creation of the medical record - Pain Location Left Breast Non-Pharmacological Interventions: Ice, Inactivity, Physical Therapy, Position/Reposition Pharmacological Interventions: PRN Medication, Scheduled Medication, Topical Medication PQRS Narrative: Smoking Status Former smoker Narcotic Agreement Date Signed 03/02/22 Hx Alcohol Use (MH) No Home Medications: Ambulatory Orders DULoxetine HCL [Cymbalta] 120 mg PO DAILY 11/30/18 Furosemide [Lasix] 20 mg PO DAILY 11/30/18 Insulin Detemir [Levemir Flextouch Pen] 5 units SQ HS 11/30/18 amLODIPine [Norvasc] 10 mg PO DAILY 11/30/18 lisinopriL [Zestril] 40 mg PO DAILY 11/30/18 metFORMIN HCL [Glucophage] 1,000 mg PO BID 11/30/18 Albuterol Sulfate [Proair Hfa] 1 - 2 puff INHALATION QID PRN 03/16/19 Atorvastatin [Lipitor] 80 mg PO HS 04/11/19 Potassium Chloride [Potassium Chloride ER] 10 meq PO BID 04/11/19 Aspirin [Adult Low Dose Aspirin EC] 81 mg PO DAILY 04/30/19 Brimonidine Tartrate [Alphagan P 0.2% Ophth Soln] 1 drops LEFT EYE BID PRN 05/06/19 Metoprolol Tartrate [Lopressor] 25 mg PO BID 05/30/19 Ferrous Sulfate [Feosol] 325 mg PO Q2D 10/03/19 Loratadine [Claritin] 10 mg PO DAILY PRN 08/10/20 Ibuprofen [Motrin Ib] 800 mg PO Q8H PRN 30 Days #90 tab 11/10/21 Calcium Carbonate [Calcium] 1,200 mg PO DAILY 02/08/22 tiZANidine [Zanaflex] 4 mg PO Q8HR PRN 30 Days #90 tab 08/17/22 Pregabalin [Lyrica] 300 mg PO BID 30 Days #60 cap 12/07/22 Pregabalin [Lyrica] 300 mg PO BID 30 Days #60 cap 12/07/22 Pregabalin [Lyrica] 300 mg PO BID 30 Days #60 cap 12/07/22 oxyCODONE HCL/ACETAMINOPHEN [Percocet 10-325 mg Tablet] 1 each PO Q4H PRN 30 Days #110 tab 12/07/22 oxyCODONE HCL/ACETAMINOPHEN [Percocet 10-325 mg] 1 each PO Q6H PRN 30 Days #110 tab 12/07/22 oxyCODONE HCL/ACETAMINOPHEN [Percocet 10-325 mg] 1 each PO Q6H PRN 30 Days #110 tab 12/07/22 oxyCODONE HCL/ACETAMINOPHEN [Percocet 10-325 mg] 1 tab PO Q4HR PRN 30 Days #110 tab 12/07/22 Controlled Substance Measures - Controlled Substance Measures Is patient prescribed a controlled substance at discharge?: Yes When asked, does pt state using other controlled substances?: Yes If prescribed controlled substance>3 days was MAPS reviewed?: Yes
== END ==
LOC: PNWHC3 08:27
PROVIDERS: ATTEND Specialist
DX: M51.36 Other intervertebral disc degeneration, lumbar region (principal); M47.817 Spondylosis without myelopathy or radiculopathy, lumbosacral region; M47.816 Spondylosis without myelopathy or radiculopathy, lumbar region; G89.29 Other chronic pain; Z87.891 Personal history of nicotine dependence; Z79.82 Long term (current) use of aspirin; Z79.891 Long term (current) use of opiate analgesic; Z88.1 Allergy status to other antibiotic agents; Z88.2 Allergy status to sulfonamides; Z88.6 Allergy status to analgesic agent; Z88.5 Allergy status to narcotic agent; Z91.048 Other nonmedicinal substance allergy status; Z51.81 Encounter for therapeutic drug level monitoring
CPT/HCPCS: 80307; G0482; G0463; 99212